=== PATIENT | male | born 1955 | race Caucasian/White ===

== ENCOUNTER → 2016-04-22 | Day surgery (SDC) | payer BC ==
[2016-04-21 10:07] VITALS: Ht 180.3 cm; Wt 115.9 kg
[~2016-04-22] VITALS: Ht 180.3 cm; Wt 115.9 kg
[~2016-04-22] MED LIST: ASPI325T45 PO; ATEN-173 PO; ATROPINE SULFATE 0.1 MG/ML 5ML SYR IV PRN; BUPIVACAINE 0.5 % 5 MG/1 ML MPF 30ML VIAL ONE; BUPIVACAINE/EPINEPHRINE 0.5% MPF 1:200,000 30 ML VIAL ONE; CEFAZOLIN 2000 MG/60 ML D5W IV SCH; CEFAZOLIN SOD 1 GM VIAL IV ONE; CEFAZOLIN SOD 1 GM VIAL ONE; CIME-56 PO; DEXAMETHASONE SOD INJ 4 MG/ML VIAL ONE; DUTA0.5C PO; EZET10TA63 PO; EpHEDrine SULFATE 50MG/5ML SYR ONE; EpHEDrine SULFATE INJ 50 MG/ML AMP IV PRN; FENTANYL CITRATE INJ 50 MCG/1 ML 2 ML VIAL IV PRN; FENTANYL CITRATE INJ 50 MCG/1 ML 2 ML VIAL ONE; FLUMAZENIL 0.1 MG/1 ML 10 ML VIAL IV PRN; GLYCOPYRROLATE INJ 0.2 MG/ML VIAL ONE; HYDROmorphone INJ 2 MG/ML SYR/VIAL IV PRN; KETO10TA PO; KETOROLAC TROMETHAMINE 30 MG/ML VIAL ONE; LABETALOL HCL IV 5 MG/ML 20ML IV PRN; LACTATED RINGER'S 1000ML 1,000 ML IV SCH; LIDOCAINE HCL 2% 2 ML VIAL (20MG/ML) ONE; LISI20TA3 PO; MEPERIDINE HCL 25 MG/ML CARP IV PRN; MIDAZOLAM HCL 1 MG/ML 2ML VIAL ONE; NALOXONE HCL 0.4 MG/1 ML VIAL/CARP IV PRN; OMEG10007 PO; ONDANSETRON INJ 2 MG/ML 2 ML VIAL IV PRN; ONDANSETRON INJ 2 MG/ML 2 ML VIAL ONE; OXYC-57 PO; OXYCODONE/ACETAMINOPHEN 5-325 TAB PO PRN; PHENYLEPHRINE 100MCG/ML 5ML SYR IV PRN; PROPOFOL IV EMULSION 10 MG/ML 20 ML VIAL IV ONE; SERT-234 PO; SODIUM CHLORIDE 0.9% 1000ML 1,000 ML IV SCH; VNTHFA/IN INH
--- NOTE | 2016-04-22 07:00 | History & Physical Bridge - SC ---
H&P Re-Evaluation Bridge Note: I have examined the patient, reviewed the History & Physical and in the interval since the performance of the History & Physical I have noted the following changes of clinical significance: No changes noted
--- NOTE | 2016-04-22 08:22 | Discharge Instructions-SurgCtr ---
Discharge Instructions Visit Reason for Visit: Right Localized Primary Osteoarthritis Ankle/Foot Discharge Discharge Diagnosis / Problem: RIGHT GREAT TOE DJD Discharge Goals Goal(s): Decrease discomfort, Therapeutic intervention Medications Stopped Medications Name(s): Was told not to take his Lisinopril and ASA. Restart Stopped Medication(s): RESTART HOME MEDICATIONS Activity Recommendations Activity Limitations: per Instructions/Follow-up section Weightbearing Status: Right weightbearing (as tolerated) Anesthesia . Post Anesthesia Instructions: If you have had General Anesthesia or IV Sedation: * Do not drive today. * Resume driving when surgeon permits. * Do not make important decisions or sign legal documents today. * Call surgeon for: 1. Temperature elevations greater than 101 degrees F. 2. Uncontrollable pain. 3. Excessive bleeding. 4. Persistent nausea and vomiting. 5. Medication intolerance (nausea, vomiting or rash). * For nausea and vomiting use only clear liquids such as: tea, soda, bouillon until nausea subsides, then gradually increase diet as tolerated. * If you have any concerns or questions, call your surgeon's office. If physician is unavailable and it is an emergency, call 911 or go to the nearest emergency room. . Instructions / Follow-Up Instructions / Follow-Up MEDICATIONS: * Resume previous medications unless instructed otherwise by your surgeon. * Always take pain medication on a full stomach or with food to avoid upset stomach. * Do not drink alcohol or drive while taking narcotics. * Ibuprofen or Tylenol may be taken if narcotic not needed. NO IBUPROFEN WHILE TAKING TORADOL SPECIAL CARE INSTRUCTIONS: __ None _X_ Keep extremity elevated and iced x 48 hours; apply ice 20-30 minutes 8-10 times/day. May remove at night. _X_ Crutches/WALKER _X_ May discard when able _X_ Post-op shoe __ 24 hrs/day __ Remove at night _X_ Dressing _X_ Maintain until seen in office, may shower with plastic over site __ Remove dressings in 24-48 hours and then may shower __ Cover incisions with band-aids after showering __ Do not remove steri-strips Call physician if chills or temperature rises above 102 degrees or pain unrelieved by prescribed pain medications. Office [phone] FOLLOW UP IN 2 WEEKS Diet Recommendations Home Diet: resume previous diet Procedures Procedures Performed: Right First Metatarsophalangeal Joint Chilectomy Pending Studies Studies pending at discharge: no Medical Emergencies . Who to Call and When: Medical Emergencies: If at any time you feel your situation is an emergency, please call 911 immediately. . Non-Emergent Contact Non-Emergency issues call your: Primary Care Provider, Surgeon . . "Provider Documentation" section prepared by Shane Nevarez.
--- NOTE | 2016-04-22 08:23 | [facility] Post Operative Brief Note ---
Immediate Operative Summary Operative Date Apr 22, 2016. Pre-Operative Diagnosis Right Great Toe MTP Joint DJD Post-Operative Diagnosis Same Procedure(s) Performed Right First Metatarsophalangeal Joint Chilectomy Surgeon Dr. Monsalve Software Developer Intern Surgeon(s) Donte Nevarez PA-C Estimated Blood Loss Minimal Findings DJD Great Toe Specimens None Drains None Anesthesia General Complication(s) None Disposition Recovery Room / PACU
--- NOTE | 2016-04-22 08:47 | OPERATIVE REPORT ---
DATE OF OPERATION: 04/22/2016 PREOPERATIVE DIAGNOSIS: Right first metatarsophalangeal joint degenerative joint disease. POSTOPERATIVE DIAGNOSES: Same. PROCEDURE PERFORMED: Right first MTP joint cheilectomy. SURGEON: Dr. Phani Monsalve. HOSPICE HOME HEALTH AIDE: Shane Nevarez PA-C. COMPLICATIONS: None. ESTIMATED BLOOD LOSS: Minimal. TOURNIQUET TIME: 33 minutes at 300 mmHg. ANESTHESIA: General. SPECIMENS: None. OPERATIVE INDICATIONS: The patient is a 60-year-old gentleman who has had a long history of right foot pain and discomfort. He has recently had his right knee replaced. During that recovery period he wanted to treat his right great toe. He has got known advanced arthritis. He has got a very significant requirement for standing and walking with his work and was having pain and foot limiting his activities and ability to do this. He elected to proceed with surgical treatment. OPERATIVE FINDINGS: Operative findings revealed advanced right knee DJD. The plantar aspect of his cartilage space really was pretty good. He had a large dorsal spur and spurs medially and laterally. We were able to resect the entire arthritic section of the dorsal joint. OPERATIVE PROCEDURE: The patient taken to the operating room, identified and placed on the operating table in supine position. All contact areas were appropriately padded. IV antibiotics were provided by anesthesia team. A general anesthetic was implemented. A right thigh tourniquet was then placed. The right ankle was then cleaned with alcohol. Twenty mL of 0.5% Marcaine with epinephrine were then injected into the ankle area for an ankle block anesthetic. The right foot was then prepped and draped in the usual sterile fashion. The right leg was elevated and exsanguinated with Esmarch and tourniquet was placed at 300 mmHg. An anterior medial approach of the first MTP joint was then performed through a longitudinal incision just medial to the extensor tendon. Blunt dissection was carried through the subcutaneous tissues down to the joint capsule. The joint capsule was incised about 2-3 mm medially to the EHL tendon. It was taken directly down through bone and skeletonized off the proximal MTP joint. I exposed the entire joint. Synovectomy was performed. I then used a saw to resect the large dorsal osteophyte. We began right at the cartilage bone junction and removed this. I then removed the medial osteophyte as well as lateral osteophyte off the metatarsal head with use of a saw. I then rongeured the squared edges to make them smooth. I then used a rongeur to remove the osteophytes off the base of the proximal phalanx circumferentially both dorsally, medially, and laterally. Once this was complete, I could dorsiflex the toe to 90 degrees. Attention was then drawn toward closing. The wound was irrigated with copious amounts of normal saline. I injected locally with 20 mL of additional 0.5% Marcaine with epinephrine. I used some bone wax over the cancellous bone to limit bleeding. The capsule was then closed with 3-0 Vicryl suture in a [id number] fashion. The tourniquet was then let down for a tourniquet time of 33 minutes. Hemostasis was assured with use of electrocautery. The wound was once again irrigated. Subcutaneous tissues were then closed with 3-0 Vicryl suture in a buried interrupted fashion. Skin was closed with 4-0 nylon suture in a horizontal mattress fashion. The foot was then cleaned and dried and a sterile dressing composed of Xeroform, 4 x 4's, Kai wrap, sterile cast padding, Coban wrap, and postop shoe were applied. The patient then brought out of general anesthesia and transferred to the recovery room in stable condition. The patient tolerated procedure well with no complications. All needle and sponge counts were correct at the end of the operation. I attest to the content of the Intraoperative Record and any orders documented therein. Any exceptio ns are noted below.
--- NOTE | 2016-04-22 08:50 | Anesthesia Progress Nt - [facility] ---
Anesthesia Post Op Note Date & Time Apr 22, 2016 at 08:50 Vital Signs Pain Intensity: 0 Vital Signs Past 12 Hours Date Time Temp Pulse Resp B/P Pulse Ox O2 Delivery O2 Flow Rate FiO2 04/22/16 08:19 37.2 79 16 138/78 98 Diffusion Mask 8 04/22/16 06:30 36.7 68 16 152/96 96 Room Air Notes Mental Status: alert / awake / arousable, participated in evaluation Pt Amnestic to Procedure: Yes Nausea / Vomiting: adequately controlled Pain: adequately controlled Airway Patency, RR, SpO2: stable & adequate BP & HR: stable & adequate Hydration State: stable & adequate Anesthetic Complications: no major complications apparent
[2016-04-22 09:38] VITALS: BP 134/78; PULSE 59; O2SAT 95
== END | disposition home or self-care (01) ==
LOC: X.SURG 06:06
PROVIDERS: ATTEND Orthopaedic Surgery Sports Medicine
DX: M19.071 Primary osteoarthritis, right ankle and foot (principal); J45.909 Unspecified asthma, uncomplicated; I10 Essential (primary) hypertension; Z96.659 Presence of unspecified artificial knee joint; F17.220 Nicotine dependence, chewing tobacco, uncomplicated

== ENCOUNTER → 2016-09-22 | Outpatient (CLI) | payer BC ==
[~2016-09-22] MED LIST changes: -ATROPINE SULFATE 0.1 MG/ML 5ML SYR IV PRN; -BUPIVACAINE 0.5 % 5 MG/1 ML MPF 30ML VIAL ONE; -BUPIVACAINE/EPINEPHRINE 0.5% MPF 1:200,000 30 ML VIAL ONE; -CEFAZOLIN 2000 MG/60 ML D5W IV SCH; -CEFAZOLIN SOD 1 GM VIAL IV ONE; -CEFAZOLIN SOD 1 GM VIAL ONE; -DEXAMETHASONE SOD INJ 4 MG/ML VIAL ONE; -EpHEDrine SULFATE 50MG/5ML SYR ONE; -EpHEDrine SULFATE INJ 50 MG/ML AMP IV PRN; -FENTANYL CITRATE INJ 50 MCG/1 ML 2 ML VIAL IV PRN; -FENTANYL CITRATE INJ 50 MCG/1 ML 2 ML VIAL ONE; -FLUMAZENIL 0.1 MG/1 ML 10 ML VIAL IV PRN; -GLYCOPYRROLATE INJ 0.2 MG/ML VIAL ONE; -HYDROmorphone INJ 2 MG/ML SYR/VIAL IV PRN; -KETO10TA PO; -KETOROLAC TROMETHAMINE 30 MG/ML VIAL ONE; -LABETALOL HCL IV 5 MG/ML 20ML IV PRN; -LACTATED RINGER'S 1000ML 1,000 ML IV SCH; -LIDOCAINE HCL 2% 2 ML VIAL (20MG/ML) ONE; -MEPERIDINE HCL 25 MG/ML CARP IV PRN; -MIDAZOLAM HCL 1 MG/ML 2ML VIAL ONE; -NALOXONE HCL 0.4 MG/1 ML VIAL/CARP IV PRN; -ONDANSETRON INJ 2 MG/ML 2 ML VIAL IV PRN; -ONDANSETRON INJ 2 MG/ML 2 ML VIAL ONE; -OXYCODONE/ACETAMINOPHEN 5-325 TAB PO PRN; -PHENYLEPHRINE 100MCG/ML 5ML SYR IV PRN; -PROPOFOL IV EMULSION 10 MG/ML 20 ML VIAL IV ONE; -SODIUM CHLORIDE 0.9% 1000ML 1,000 ML IV SCH
[2016-09-22 18:53] LABS: HEMATOCRIT 44.3 % (42-52); MEAN CORPUSCULAR HEMOGLOBIN 30.7 pg (25-34); MEAN CORPUSCULAR HGB CONC 34.5 g/dl (32-36); MEAN PLATELET VOLUME 10.2 fL (7.4-10.4); PLATELET COUNT 234 K/uL (130-400); RED BLOOD COUNT 4.98 M/uL (4.7-6.1); WHITE BLOOD COUNT 10.71 K/uL (4.8-10.8)
[2016-09-22 19:26] LABS: ALT/SGPT 32 U/L (12-78); AST/SGOT 18 U/L (15-37); BLOOD UREA NITROGEN 21 mg/dl (7-18); BUN/CREATININE RATIO 16.4 (10-20); CALCIUM 8.8 mg/dl (8.5-10.1); CARBON DIOXIDE 27 mmol/L (21-32); CHLORIDE 107 mmol/L (98-107); GLUCOSE 91 mg/dl (70-99); POTASSIUM 4.5 mmol/L (3.5-5.1); SODIUM 141 mmol/L (136-145)
[2016-09-22 19:31] LABS: ALB/GLOB RATIO 1.3 (0.9-2); ALKALINE PHOSPHATASE 74 U/L (45-117); FREE PSA 1.06 ng/ml
--- NOTE | 2016-09-28 13:39 | CODING QUERY MEDICAL NECESSITY ---
SUPPORTING DIAGNOSIS NEEDED Dr. Chapman, A supporting diagnosis is required for the test/procedure performed on this patient in order for us to be reimbursed by the patient's insurance. Please provide a supporting diagnosis for the following test/procedure listed below next to the test name along with your signature. *If there is no additional diagnosis for this patient that would support the following test/procedure please document that below next to the test/procedure. Test(s)/Procedure(s) that require a supporting diagnosis: * [id number] PSA DIAGNOSIS: DATE OF SERVICE: 09/22/16 Provider Signature: Date: Thank you Esteban Nath [facility] Information Management Once completed, please kindly fax back to [phone] For questions please call [phone]
== END | disposition home or self-care (01) ==
LOC: C.LAB 17:05
PROVIDERS: ATTEND Urology
DX: E29.1 Testicular hypofunction (principal); R97.20 Elevated prostate specific antigen [PSA]

== ENCOUNTER → 2017-01-14 | Outpatient (CLI) | payer BC ==
[~2017-01-14] MED LIST changes: -OXYC-57 PO
== END | disposition home or self-care (01) ==
LOC: C.LAB 15:20
PROVIDERS: ATTEND Urology
DX: R97.20 Elevated prostate specific antigen [PSA] (principal)

== ENCOUNTER → 2017-01-22 | Outpatient (CLI) | payer BC ==
[~2017-01-22] MED LIST changes: +GADAVIST IV PRN
--- NOTE | 2017-01-22 14:27 | DIAGNOSTIC IMAGING REPORT ---
PROSTATE MRI COMBO CLINICAL HISTORY: 61 years-old Male presenting with ELEVATED PSA. PSA 4.4 ng/mL. Biopsy was negative. TECHNIQUE: Multisequence, multiplanar MR imaging of the prostate was performed before and after the administration of intravenous contrast. Additional postprocessing was performed on a separate [employer] workstation by the radiologist for 3-D volumetric segmentation of the prostate and contouring of region(s) of interest (JACE) for targeting. IV contrast: 12.5 cc of intravenous Gadavist COMPARISON: None. FINDINGS: Prostate: The prostate measures 6.0 x 5.5 x 6.0 cm cm (DynaCAD prostate boundary segmentation volume 90.1 mL). Moderate changes of benign prostatic hyperplasia. Precontrast T1 weighted imaging demonstrates no evidence of intrinsic T1 hyperintensity to suggest hemorrhage. Seminal vesicles normal. No suspicious lesion is apparent in the transition or peripheral zones. PI-RADS: 2 Bladder: Mild bladder wall thickening Bowel: Visualized portion of the rectum normal. Peritoneum: No free fluid in the pelvis. Lymph nodes: There is a mildly enlarged right common femoral lymph node measuring 20 x 12 mm. There is a left common femoral lymph node measuring 14 x 6 mm. Vasculature: Iliac vessels patent. Osseous structures: Normal bone marrow signal intensity. There is a fat-containing left inguinal hernia. IMPRESSION: 1. Benign prostatic hypertrophy. PI-RADS 2 study. No suspicious lesion is visualized. 2. Fat-containing left inguinal hernia 3. Mildly enlarged right common femoral lymph node measuring 20 x 12 mm 4. Prostate volume of 90.1 cc Electronically signed by: Maury Lucas M.D. 01/22/2017 2:26 PM Dictated Date/Time: 01/22/2017 2:08 PM
== END | disposition home or self-care (01) ==
LOC: C.MRIBC 12:28
PROVIDERS: ATTEND Urology
DX: R97.20 Elevated prostate specific antigen [PSA] (principal); N40.0 Benign prostatic hyperplasia without lower urinary tract symptoms; K40.90 Unilateral inguinal hernia, without obstruction or gangrene, not specified as recurrent; R59.0 Localized enlarged lymph nodes

== ENCOUNTER 2017-05-24 07:56 | Emergency (ER) | payer BC ==
[~2017-05-24] VITALS: Ht 180.3 cm; Wt 122.9 kg
[~2017-05-24 07:56] MED LIST changes: -GADAVIST IV PRN
[2017-05-24 08:00] VITALS: TEMP 37.1; Ht 180.3 cm; Wt 122.9 kg
[2017-05-24] MEDS ORDERED: VALA1TAB2 PO (09:02)
[2017-05-24] MEDS ORDERED: HYDR-5688 PO (09:03)
--- NOTE | 2017-05-24 09:04 | EMERGENCY ROOM VISIT NOTE ---
ED Visit Note First contact with patient: 08:16 CHIEF COMPLAINT: Right forehead rash 4 days HISTORY OF PRESENT ILLNESS: Patient is a 61-year-old female who presents emergency department for evaluation of a rash on his forehead. His symptoms started about 4 days ago, with a red, raised spot, he thought it might have been a "blind pimple." He has progressively developed more redness, swelling and several smaller raised lesions. This morning, he noted swelling in his right upper eyelid and lesions in his eyebrow. He also has some lesions into his right hairline. It is primarily painful, slightly itchy. He denies any eye pain, has had some tearing. He has been able to wear his contacts, and notes only slightly blurry vision. He notes some swollen lymph nodes around his right ear. He denies any fever, chills, malaise, posterior neck pain or stiffness. He does report having chickenpox illness as a child, has not received the shingles vaccine. He has an appointment for a physical with his primary care provider this afternoon. He sees an wardrobe manager for his contact lenses. REVIEW OF SYSTEMS: Review of systems as per HPI. All other systems reviewed were negative. At least 6 systems reviewed. PMH: Electronic medical records are reviewed and summarized as above/below. See Problem List. He believes that his tetanus is up-to-date. SOCIAL HISTORY: Patient lives at home with his spouse. He is employed. Never smoked. PHYSICAL EXAM: Vital Signs: Reviewed Nurse's notes. CONSTITUTIONAL: Patient is a well-appearing 61-year-old white male who is awake and alert and in no acute distress. HEENT: Normocephalic, atraumatic. Pupils equal, round, reactive to light and accommodation. EOMs intact without nystagmus. There is no conjunctival injection or drainage or discharge noted from the eyes. Sclera are anicteric. Under slit-lamp examination, after patient removed his contact lens, there was no evidence for corneal foreign body, no fluorescein uptake with UV light. Tympanic membranes intact, with normal landmarks, no lesions noted. External canals are clear. Oral and nasopharynx are clear. Mucous membranes are moist. INTEGUMENTARY: The patient has a vesicular-appearing rash on an erythematous, edematous base noted on the right forehead above and inferior to the right eyebrow, with similar smaller scattered lesions noted into the scalp on the right. Some of the vesicles are crusted over, there is no drainage or discharge present. LYMPHATICS: Patient has tender left-sided preauricular lymphadenopathy noted. No erythema or induration. EMERGENCY DEPARTMENT COURSE: The patient was seen and evaluated as above. He does appear to have a rash consistent with shingles above the right eye. There does not appear to be any superimposed cellulitis. Differential diagnoses included allergic reaction, contact dermatitis, urticaria, among others. Slit- lamp examination was performed, and does not show any corneal involvement, which would be accurate considering this is not the appropriate dermatome. Patient was reviewed with attending physician. Patient was given valacyclovir 1 g orally. Supportive care measures were discussed. He was given [place] to use as needed for pain. He was encouraged to return to the emergency department at any point for worsening symptoms, he can also follow up with his wardrobe manager. The patient was discharged home with his in good condition. Medication reconciliation: I attest that I have personally reviewed the patient' s current medication list. Blood pressure screening: Patient was found to have a slightly elevated blood pressure due to circumstances. I do not believe that the patient requires hypertension monitoring. Problem List Medical Problems: (1) Asthma Status: Chronic (2) Depression Status: Chronic (3) Gastro-Esophageal Reflux Disease Without Esophagitis Status: Chronic (4) Hyperlipidemia Nec/Nos Status: Chronic (5) Hypertension Nos Status: Chronic Surgical Problems: (1) History of total knee arthroplasty Status: Resolved Current/Historical Medications Scheduled Aspirin (Aspirin), 325 MG PO BID Atenolol (Tenormin), 25 MG PO QAM Dutasteride (Avodart), 0.5 MG PO QAM Ezetimibe (Zetia), 10 MG PO HS Fish Oil (Sorrento-3), 1 CAP PO QAM Lisinopril (Prinivil), 20 MG PO QAM Sertraline (Zoloft), 100 MG PO HS Valacyclovir Hcl (Valtrex), 1,000 MG PO TID Scheduled PRN Albuterol Hfa (Ventolin Hfa), 2-4 PUFFS INH Q6H PRN for SOB/Wheezing Cimetidine (Tagamet), 400 MG PO DAILY PRN for STOMACH Hydrocodone/Acetaminophen 5MG/325MG ([place] 5MG/325MG), 1-2 TABLETS PO Q4 PRN for Pain Allergies Coded Allergies: BEE STING (Unverified Allergy, Unknown, ITCHING AND BODY SWELLING, 05/24/17 ) Uncoded Allergies: IV PAIN MEDICATION (Allergy, Unknown, "MADE ME WIG OUT", 04/21/16) Vital Signs Date Time Temp Pulse Resp B/P (MAP) Pulse Ox O2 Delivery O2 Flow Rate FiO2 05/24/17 09:16 61 20 124/96 96 05/24/17 08:00 37.1 65 18 166/91 96 Room Air Medications Administered Medications (Trade) Dose Ordered Sig/Deandra Route Start Time Stop Time Status Last Admin Dose Admin Valacyclovir HCl (Valtrex Tab) 1,000 mg NOW ONCE PO 05/24/17 09:00 05/24/17 09:01 DC 05/24/17 09:10 1,000 MG Departure Information Impression Primary Impression: Shingles Prescriptions Hydrocodone/Acetaminophen 5MG/325MG ([place] 5MG/325MG) Tab 1-2 TABLETS PO Q4 Y for Pain, #20 TAB For Initial Treatment Prov: Migdalia Luna PA 05/24/17 Valacyclovir Hcl (VALTREX) 1 Gm Tab 1000 MG PO TID for 7 Days, #21 TAB Prov: Migdalia Luna PA 05/24/17 Referrals Merry Jacobs PA-C (PCP) Patient Instructions My [facility] Additional Instructions Valacyclovir 1000 mg: Take one tablet 3 times daily for 7 days. Hydrocodone/Acetaminophen ([place]) 5/325 mg: Take 1-2 pills every four hours for breakthrough pain. Avoid alcohol, operating machinery or dangerous equipment, working on ladders or roofs, DRIVING, or situations where being under the influence may be dangerous. It is recommended to use an [id number] stool softener such as Colace, 100mg twice daily while taking this medication to avoid constipation. Follow-up with your primary care physician as you have scheduled this afternoon. Follow-up with your wardrobe manager if you develop any eye pain or changes in vision.
[2017-05-24 09:16] VITALS: BP 124/96; PULSE 61; O2SAT 96
== END 2017-05-24 09:24 | disposition home or self-care (01) ==
LOC: C.EDB 07:58
DX: B02.9 Zoster without complications (principal); J45.909 Unspecified asthma, uncomplicated; F32.9 Major depressive disorder, single episode, unspecified; K21.9 Gastro-esophageal reflux disease without esophagitis; E78.5 Hyperlipidemia, unspecified; I10 Essential (primary) hypertension; Z79.82 Long term (current) use of aspirin; Z79.899 Other long term (current) drug therapy; Z91.030 Bee allergy status; Z88.8 Allergy status to other drugs, medicaments and biological substances

== ENCOUNTER → 2017-08-06 | Outpatient (CLI) | payer BC ==
[~2017-08-06] MED LIST changes: +ASPECOTC PO; -ASPI325T45 PO; +HYDR-5688 PO
[2017-08-06 17:46] LABS: ALBUMIN 3.8 gm/dl (3.4-5.0); ALT/SGPT 29 U/L (12-78); AST/SGOT 20 U/L (15-37); BLOOD UREA NITROGEN 20 mg/dl (7-18); CALCIUM 8.7 mg/dl (8.5-10.1); CARBON DIOXIDE 28 mmol/L (21-32); CREATININE 1.11 mg/dl (0.60-1.40); GLUCOSE 93 mg/dl (70-99); POTASSIUM 4.7 mmol/L (3.5-5.1); SODIUM 138 mmol/L (136-145)
[2017-08-06 17:50] LABS: ALKALINE PHOSPHATASE 64 U/L (45-117)
== END | disposition home or self-care (01) ==
LOC: C.LAB 16:41
PROVIDERS: ATTEND Urology
DX: R31.0 Gross hematuria (principal)

== ENCOUNTER 2022-08-16 18:52 | Inpatient (IN) ==
[2022-08-16] MEDS ORDERED: HYDROmorphone INJ 1 MG/ML SYRINGE IM STA (19:05)
--- NOTE | 2022-08-16 19:09 | Emergency Department Note ---
ED Provider Note History of Present Illness Chief Complaint: Catheter Replacement Stated Complaint: CATHETER REPLACEMENT Time Seen by Provider: 08/16/22 18:59 67-year-old male who returns to the emergency department with complaint of increasing pain and pressure within his bladder. The patient reports that he was just discharged from our emergency department, and did not make it to [facility] before he noticed significant pain. The patient reports that he did have CT imaging showing a large blood clot in his bladder. He feels that the clot has blocked off his catheter again, and returns for further evaluation. The patient rates his discomfort an 8 out of 10. The patient reports that he was given IV morphine on his prior visit which did not help with his pain. Patient has known history of chronic prostate disease, and follows with [facility]. Home Medications Medication Instructions Recorded Confirmed Type amlodipine 10 mg tablet 10 mg PO QAM 01/17/21 08/16/22 History hydrochlorothiazide 25 mg tablet 25 mg PO QAM 01/17/21 08/16/22 History lisinopril 40 mg tablet 40 mg PO QAM 07/16/21 08/16/22 History duloxetine 30 mg capsule,delayed 30 mg PO DAILY 09/26/21 08/16/22 History release (Cymbalta) albuterol sulfate 90 mcg/actuation 2 inh inhalation Q4H PRN shortness 02/07/22 08/16/22 Rx aerosol inhaler (Ventolin HFA) of breath or wheezing #6.7 grams fluoxetine 20 mg capsule 20 mg PO DAILY 08/16/22 08/16/22 History Allergies Allergy/AdvReac Type Severity Reaction Status Date / Time bee venom protein (honey bee) Allergy Intermediate ITCHING Verified 08/16/22 16:32 AND BODY SWELLING Past Med/Surg History Medical History Anxiety Degenerative joint disease (DJD) of hip Hyperlipidemia Hypertension Pain due to total right knee replacement Shingles HX Surgical History History of needle biopsy PROSTATE History of shoulder surgery right History of tonsillectomy Family History Father Hypertension Other Heart disease Leukemia Social History Smoking Status: Current every day smoker Tobacco Type: Smokeless Tobacco (Dip or Chew) Second Hand Exposure: No; Do You Dip or Chew Tobacco: Yes (ADVISED); Hx Alcohol Use: Yes Hx Substance Use: No Preferred Language: Polish Communication Ability: Effective Physical Laboratory Assistant Required: No Beliefs That Will Affect Care: None marital status: Current Living Situation: Spouse current occupational status: employed current occupation: PEER SPECIALIST Feels Safe at Home: Yes Assistive Devices: Denture - Upper and Denture - Lower Physical Exam Vital Signs Vital Signs - 24 hr 08/16/22 18:56 08/16/22 21:16 Temperature 36.7 C Temperature Source Temporal Artery Scan Pulse Rate 125 H Pulse Rate [Finger] 86 Pulse Rhythm Regular Pulse Rhythm [Finger] Regular Pulse Strength Normal Respiratory Rate 20 19 Respiratory Effort / Characteristics Non-Labored Spontaneous Non-Labored Spontaneous Respiratory Depth Normal Normal Respiratory Pattern Regular Regular Blood Pressure 156/97 H Blood Pressure [Right Arm] 119/67 Blood Pressure Mean 116 Blood Pressure Mean [Right Arm] 84 Blood Pressure Position Sitting Blood Pressure Position [Right Arm] Lying Pulse Oximetry 96 94 Oxygen Delivery Method Room Air Room Air Sepsis Recent Fever Within 48 Hours No Sepsis New/Unexplained Change in Mental Status N/A Sepsis Action Taken by Nursing No Action Required CONSTITUTIONAL: Healthy and well nourished. Patient appears in moderate discomfort. HEENT: No scleral icterus or conjunctival injection/pallor. GASTROINTESTINAL: Patient has mild tenderness to palpation over the suprapubic region. Negative McBurney's point tenderness. Negative CVA tenderness. The patient's Olivares bag only has blood without evidence for urine. MUSCULOSKELETAL: Full range of motion of all joints without discomfort. Negative logroll of the hips. INTEGUMENTARY: No rash or other significant dermatologic conditions noted. HEMATOLOGIC: No ecchymosis or petechiae. PSYCHIATRIC: Positive affect. NEUROLOGIC: No focal neurologic deficits noted. Course Course Patient history and physical exam were performed. Nurses notes were reviewed. Vital signs were reviewed, showing a mild tachycardia and hypertension. I also reviewed documentation from the patient's visit this afternoon, with CT imaging showing evidence for a large clot within the bladder. An order was placed for a Olivares irrigation. The nurse reports that she tried to irrigate, but could not get anything back. She did recommend replacing it with a triple-lumen Olivares catheter, which was performed. Continuous bladder irrigation was performed with large amounts of blood clots and persistent bleeding. The patient did report improvement of his pain, but his did not feel comfortable taking him home with risk of persistent clot formation. At this point, I did discuss the case further with our Bogger Operator who do not have any specific criteria for observation with his condition. They recommended that I discussed the case further with the [facility] hospitalist (Dr. Chu), and he agreed to bring the patient in for observation. COVID-19 test was negative. Please see hospitalist dictations for further treatment and final disposition. I suspect that a urology consultation will be warranted while he is still in the hospital. Administered Medications Discontinued Medications Hydromorphone HCl (Hydromorphone Inj 1 Mg/Ml Syringe) 0.5 mg IM NOW STA Stop: 08/16/22 19:06 Last Admin: 08/16/22 19:18 Dose: 0.5 mg Documented By: KAJAL Medical Decision Making Medical Records Attestation: I reviewed the patient's medical records. Home Medications was personally reviewed by me Laboratory Data Lab Results 08/16/22 Range/Units 21:23 POC Hgb 12.9 L (14.0-18.0) g/dl POC Hct 38 L (42-52) % POC Sodium 127 L (135-144) mmol/L POC Potassium 2.9 L (3.3-5.0) mmol/L POC Chloride 89 L (101-112) mmol/L POC Total CO2 29 (24-31) mmol/L POC Anion Gap 13.0 L (16-25) mmol/L POC BUN 17 (7-18) mg/dl POC Creatinine 1.8 H (0.6-1.3) mg/dl POC Glucose (other) 112 H (70-99) mg/dl POC Ioniz Calcium Yulissa 0.96 L (1.12-1.32) mmol/l MDM Narrative Patient presents the emergency department with complaint of increasing bladder pain and pressure. The patient was just seen in the emergency department this afternoon, and had a Olivares catheter placed with urinary retention. CT imaging earlier today also showed evidence for a large clot within the bladder. I suspect that the blood has blocked the Olivares catheter, therefore Olivares irrigation was attempted, however was unsuccessful. The Olivares had to be removed, and a triple-lumen Olivares catheter was inserted with continuous bladder irrigation with huge blood clots and persistent bleeding. At this point, the case was further discussed with the hospitalist service, who has agreed to bring the patient in for observation and urology consultation. Impression Complication, blocked Olivares catheter, Hematuria Discharge Plan Visit Data Chief Complaint: Catheter Replacement Stated Complaint: CATHETER REPLACEMENT ED Provider: Nick Garner ED Midlevel Provider: Yaakov Granados Discharge Problem: Complication, blocked Olivares catheter, Hematuria Patient Disposition: Home - Self-Care Discharge Instructions Activity Restrictions/Additional Instructions: Continue follow-up with [facility] for further evaluation and management. Return to the emergency department for any recurrent blockage of your Olivares catheter. Forms Stand Alone Forms: [facility], [facility] Emergency Department, Important Visit Information Prescriptions Prescriptions: No Action duloxetine [Cymbalta] 30 mg capsule,delayed release(DR/EC) 30 mg PO DAILY Rx Instructions: 30 mg PO DAILY INCREASE TO BID; hydrochlorothiazide 25 mg tablet 25 mg PO QAM amlodipine 10 mg tablet 10 mg PO QAM albuterol sulfate [Ventolin HFA] 90 mcg/actuation HFA aerosol inhaler 2 inh inhalation Q4H PRN (Reason: shortness of breath or wheezing) Qty: 6.7 1RF Rx Instructions: 2 puffs every 4-6 hrs as needed for wheezing lisinopril 40 mg Tablet 40 mg PO QAM fluoxetine 20 mg capsule 20 mg PO DAILY Referrals Referrals: Henrique Sommer MD [Primary Care Provider] - Complication, blocked Olivares catheter Qualifiers: Encounter type: initial encounter Qualified Code(s): T83.091A - Other mechanical complication of indwelling urethral catheter, initial encounter Hematuria Qualifiers: Hematuria type: gross Qualified Code(s): R31.0 - Gross hematuria
[2022-08-16 21:38] LABS: iSTAT Creatinine 1.8 mg/dl (0.6-1.3); iSTAT Hemoglobin 12.9 g/dl (14.0-18.0); iSTAT Ionized Calcium 0.96 mmol/l (1.12-1.32); iSTAT Potassium 2.9 mmol/L (3.3-5.0)
[2022-08-16] MEDS ORDERED: PROMETHAZINE HCL 12.5 MG in SODIUM CHLORIDE 0.9% 50 ML IV PRN (22:02)
[2022-08-16] MEDS ORDERED: ACETAMINOPHEN 325 MG TAB PO PRN (22:02)
[2022-08-16] MEDS ORDERED: SODIUM CHLORIDE 0.9% 1000ML 1,000 ML IV ONE (23:09)
[2022-08-17 01:12] LABS: Hematocrit (blood only) 37.9 % (42.0-52.0); Hemoglobin 12.9 g/dl (14.0-18.0)
[2022-08-17 01:26] LABS: BUN Creatinine Ratio 20.9 (10-20); Calcium 8.5 mg/dl (8.6-10.3); Creatinine Clr Calc Pharmacy 102.6 ml/min; Est GFR (African American) 102.1 ml/min; Est GFR (Non-African American) 88.1 ml/min; Magnesium 1.8 mg/dl (1.7-2.4); Potassium 4.3 mmol/L (3.5-5.1)
[2022-08-17] MEDS: oxyCODONE HCL IR 5 MG TAB (IMMEDIATE RELEASE) PO PRN ×3 (03:26→19:55)
--- NOTE | 2022-08-17 05:19 | History & Physical Report ---
Date of Service August 16, 2022 (late entry) Assessment & Plan (1) Hematuria: Plan: With urinary retention symptoms history BPH Hemoglobin drop from baseline following initial ER visit this afternoon. hypertension, stable hyperlipidemia/statin intolerance prediabetes, hemoglobin A1c of 5.17 January 2022 mood disorder, at baseline OBS Medical telemetry follow H&H, transfuse PRBC if hemoglobin less than 7 and for symptomatic anemia Continue CBI Flomax for urinary retention given prostatic enlargement Urology consult Re: Hematuria N.p.o. until patient seen by urology in anticipation of procedure DVT prophylaxis. SCDs Re: Hematuria causing anemia Full code Text document was generated using [employer] voice recognition software. It may contain grammatical or spelling errors. Kindly contact undersigned for clarification of any documentation item in question. Admission and Anticipated Discharge Date Admission Date: August 16, 2022 History of Present Illness Chief Complaint: Increasing bladder pain Primary Care Provider: Henrique Sommer MD History obtained from patient, family, and records. Medical history significant for hypertension, hyperlipidemia/statin intolerance, prediabetes, mood disorder, BPH, OA. 2 weeks history of achy lower abdominal pain with hematuria. No fever, no chills, no chest pain, no SOB. Urinary retention later noted. Patient consulted ER this afternoon for progressive symptoms. Hemoglobin and kidney function stable. CT abdomen pelvis did not show any urinary calculi or hydronephrosis. Note of 9 x 4.8 cm bladder clot with bladder distention. Olivares catheter placed at the ER. Patient discharged home with instructions to follow-up with urologist. Worsening bladder pressure shortly after discharge from the ER. Patient returned to the ER. Olivares catheter replaced and continuous bladder irrigation initiated. Patient currently comfortable. Medical History as above Surgical History : Shoulder surgery, urologic procedures, tonsillectomy, cataract surgeries Family History : Heart disease, DM Personal/Social history : Non-smoker, occasional EtOH intake, retired [employer] employee Allergies Allergy/AdvReac Type Severity Reaction Status Date / Time bee venom protein (honey bee) Allergy Intermediate ITCHING Verified 08/16/22 16:32 AND BODY SWELLING Home Medications Medication Instructions Recorded Confirmed Type amlodipine 10 mg tablet 10 mg PO QAM 01/17/21 08/16/22 History hydrochlorothiazide 25 mg tablet 25 mg PO QAM 01/17/21 08/16/22 History lisinopril 40 mg tablet 40 mg PO QAM 07/16/21 08/16/22 History duloxetine 30 mg capsule,delayed 30 mg PO DAILY 09/26/21 08/16/22 History release (Cymbalta) albuterol sulfate 90 mcg/actuation 2 inh inhalation Q4H PRN shortness 02/07/22 08/16/22 Rx aerosol inhaler (Ventolin HFA) of breath or wheezing #6.7 grams fluoxetine 20 mg capsule 20 mg PO DAILY 08/16/22 08/16/22 History Past Med/Surg History Medical History Anxiety Degenerative joint disease (DJD) of hip Hyperlipidemia Hypertension Pain due to total right knee replacement Shingles HX Surgical History History of needle biopsy PROSTATE History of shoulder surgery right History of tonsillectomy Family History Father Hypertension Other Heart disease Leukemia Social History Smoking Status: Never smoker Tobacco Type: Smokeless Tobacco (Dip or Chew) Second Hand Exposure: No; Do You Dip or Chew Tobacco: Yes (ADVISED); Hx Alcohol Use: No Hx Substance Use: No Preferred Language: [place]guill[place] Communication Ability: Effective Primer Boxer Required: No Beliefs That Will Affect Care: None marital status: Current Living Situation: Spouse Current Living Situation Comment: home w spouse current occupational status: employed current occupation: CUSTOMER SERVICE ADVISOR Other Information That Helps Us Care for You: No Feels Safe at Home: Yes Safety Concerns: Feels Safe At This Time Assistive Devices: Denture - Upper and Denture - Lower Review of Systems Review of Systems: As per HPI, all other systems reviewed and negative Physical Exam Physical Exam: GENERAL: Comfortable, pleasant, obese, no respiratory distress SKIN: Pallor, warm HEENT: Pale palpebral conjunctivae, no ptosis, dry buccal mucosa NECK : Supple, short neck, no tenderness CHEST : CTA, no tenderness HEART : RRR, no obvious murmurs ABDOMEN: Some distention, nontender EXTREMITIES : Minimal LE swelling, no LE tenderness, no other conspicuous deformities noted NEUROLOGIC : Coherent, no facial asymmetry, no other gross focality Results & Data Results & Data Vital Signs (Past 12 Hours) Vital Signs Temp Pulse Pulse Resp BP BP Pulse Ox 08/17/22 03:01 87 08/17/22 01:49 36.9 C 84 18 153/83 H 94 08/17/22 01:15 75 19 125/77 92 08/16/22 21:16 86 19 119/67 94 08/16/22 18:56 36.7 C 125 H 20 156/97 H 96 O2 Del Method 08/17/22 03:01 08/17/22 01:49 Room Air 08/17/22 01:15 Room Air 08/16/22 21:16 Room Air 08/16/22 18:56 Room Air Laboratory Results Laboratory Results Hgb 12.9 g/dl (14.0-18.0) L 08/17/22 00:54 POC Hgb 12.9 g/dl (14.0-18.0) L 08/16/22 21:23 Hct 37.9 % (42.0-52.0) L 08/17/22 00:54 POC Hct 38 % (42-52) L 08/16/22 21:23 POC Sodium 127 mmol/L (135-144) L 08/16/22 21:23 Sodium 135 mmol/L (136-145) L 08/17/22 00:54 POC Potassium 2.9 mmol/L (3.3-5.0) L 08/16/22 21:23 Potassium 4.3 mmol/L (3.5-5.1) 08/17/22 00:54 POC Chloride 89 mmol/L (101-112) L 08/16/22 21: Chloride 100 mmol/L (98-107) 08/17/22 00:54 Carbon Dioxide 28 mmol/L (21-32) 08/17/22 00:54 POC Total CO2 29 mmol/L (24-31) 08/16/22 21:23 Anion Gap 7 (3-11) 08/17/22 00:54 POC Anion Gap 13.0 mmol/L (16-25) L 08/16/22 21:23 POC BUN 17 mg/dl (7-18) 08/16/22 21:23 BUN 19 mg/dl (6-23) 08/17/22 00:54 Creatinine 0.91 mg/dl (0.6-1.4) 08/17/22 00:54 POC Creatinine 1.8 mg/dl (0.6-1.3) H 08/16/22 21:23 Est Cr Clr Drug Dosing 102.6 ml/min 08/17/22 00:54 Est GFR ( Amer) 102.1 ml/min 08/17/22 00:54 Est GFR (Non-Af Amer) 88.1 ml/min 08/17/22 00:54 BUN/Creatinine Ratio 20.9 (10-20) H 08/17/22 00:54 Glucose 117 mg/dl (70-99(Fasting)) H 08/17/22 00:54 POC Glucose (other) 112 mg/dl (70-99) H 08/16/22 21:23 Osmolality 290 mOsm/kg (280-300) 08/17/22 00:54 Calcium 8.5 mg/dl (8.6-10.3) L 08/17/22 00:54 POC Ioniz Calcium Yulissa 0.96 mmol/l (1.12-1.32) L 08/16/22 21:23 Magnesium 1.8 mg/dl (1.7-2.4) 08/17/22 00:54 SARS-CoV-2, RNA, NAAT NEGATIVE (NEGATIVE) 08/16/22 22:35 Diagnostic Findings Chest x-ray as per my interpretation : atelectasis, elevated right hemidiaphragm Code Status & VTE Plan VTE Prophylaxis Plan VTE Prophylaxis will be ordered: Yes (1) Hematuria Hematuria type: unspecified type Qualified Code(s): R31.9 - Hematuria, unspecified
[2022-08-17] MEDS: TAMSULOSIN HCL 0.4 MG CAP PO SCH (06:35)
[2022-08-17 07:01] LABS: Basophils # (auto) 0.03 K/uL (0-0.2); Basophils % (auto) 0.3 %; Eosinophils # (auto) 0.17 K/uL (0-0.50); Eosinophils % (auto) 1.6 %; Hematocrit (blood only) 37.2 % (42.0-52.0); Hemoglobin 12.8 g/dl (14.0-18.0); Immature Granulocytes # (auto) 0.08 K/uL (0.01-0.20); Immature Granulocytes % (auto) 0.8 %; Lymphocytes # (auto) 1.94 K/uL (1.2-3.4); Lymphocytes % (auto) 18.5 %; Mean Corpuscular Hemoglobin 29.5 pg (25.0-34.0); Mean Corpuscular Hgb Conc 34.4 g/dL (32.0-36.0); Mean Corpuscular Volume 85.7 fL (80.0-100.0); Mean Platelet Volume 9.6 fL (9.4-12.4); Monocytes # (auto) 1.16 K/uL (0.11-0.59); Monocytes % (auto) 11.1 %; Neutrophils # (auto) 7.11 K/uL (1.40-6.50); Neutrophils % (auto) 67.7 %; Platelet Count 323 K/uL (130-400); RDW Coefficient of Variation 13.7 % (11.5-14.5); RDW Standard Deviation 42.7 fL (36.4-46.3); Red Blood Count 4.34 M/uL (4.70-6.10); White Blood Count 10.49 K/ul (4.8-10.8)
[2022-08-17 07:19] LABS: Anion Gap 5 (3-11); BUN Creatinine Ratio 22.4 (10-20); Blood Urea Nitrogen 19 mg/dl (6-23); Calcium 8.4 mg/dl (8.6-10.3); Carbon Dioxide 31 mmol/L (21-32); Chloride 100 mmol/L (98-107); Creatinine Clr Calc Pharmacy 110.5 ml/min; Est GFR (Non-African American) 91.4 ml/min; Glucose 104 mg/dl (70-99(Fasting)); Sodium 136 mmol/L (136-145)
--- NOTE | 2022-08-17 07:29 | XRay Report ---
XR chest 1V portable CLINICAL HISTORY: hyponatremia TECHNIQUE: Single frontal radiograph of the chest was obtained. Comparison: Comparison is made to chest radiograph 02/07/2022 FINDINGS: No lines and tubes are seen. The cardiomediastinal silhouette is normal. Likely calcified granuloma i s seen in the right lower lung. No evidence of pleural effusion or pneumothorax. IMPRESSION: No acute chest disease. ACT 112: Negative or not required by law. Electronically signed by: Cornelius Spear M.D. 08/17/2022 7:27 AM
[2022-08-17] MEDS: FLUoxetine HCL 20 MG CAP PO SCH (07:52)
[2022-08-17] MEDS: amLODIPine BESYLATE 5 MG TAB PO SCH (07:52)
[2022-08-17] MEDS: DULoxetine HCL 30 MG CAP PO SCH (07:52)
--- NOTE | 2022-08-17 08:55 | Urology Consultation ---
Date of Consultation August 17, 2022 Assessment & Plan (1) Hematuria: (2) Complication, blocked Olivares catheter: 67-year-old male with PMHx of BPH with lower urinary tract symptoms, elevated PSA, and hematuria who presented to the emergency department on 08/16/2022 for evaluation of hematuria, lower abdominal pain and difficulty voiding. CT abdomen and pelvis without contrast notable for a 9 x 4.8 cm clot within the bladder, mild bladder distention; no urinary calculi or hydronephrosis. Olivares catheter was placed and he was discharged to follow-up with urology outpatient. Unfortunately he returned to ED again on 08/16/22 due to blocked Olivares catheter. - Pt afebrile, hemodynamically stable. - Labs reviewed - creatinine 0.85, WBC 10.49, Hgb 12.8 - UA on arrival showed 3+ blood, >30 RBCs, otherwise negative - no culture pending - CT A/P on 08/16 notable for a 9 x 4.8 cm clot within the bladder and mild bladder distention - 24F Olivares catheter draining appropriately at time of exam, urine is thin/transparent light aguilar red with CBI on slow - Personally hand irrigated catheter at bedside this am with return of moderate amount of small clots - Maintain Olivares catheter and CBI, with plan to titrate CBI down as appropriate - Okay to hand irrigate as needed for clot retention, suprapubic pain - Recommend start antibiotic while on CBI - IV Ceftriaxone ordered Findings reviewed with Dr. Herrera, plant operator control room operator urologist. Given persistent hematuria and concern for persistent clot burden, recommend proceed to OR for cystoscopy, clot evacuation and possible fulguration. Patient and spouse agreeable to proceed with surgical intervention. Plan: - Proceed with cystoscopy, clot evacuation and possible fulguration in OR today - OR notified - Keep NPO for procedure - Risks and benefits reviewed as per consent - Patient and are agreeable to the plan, all questions answered - Continue supportive care and medical management per medicine service Attending note: Independently evaluated, assessed, interviewed, and examined. Discussed extensively different options. Patient with significant gross hematuria and large amount of clot likely still remaining within bladder. Unknown source of bleed at this point. Did discuss possible causes including possible prostatic varicosities also discussed possibility of tumor lesion or other bleeding area. Discussed options moving forward. Patient continues to have issues passing clot material. Reviewed extensively options. Discussed possible interventions and options. Patient's complicated medical and surgical history was reviewed and summarized as above. Agree with findings. Patient's lab work was all reviewed agree with findings as above. Hemoglobin is currently stable at 12.8 white count is 10.49. Creatinine is stable at 0.85. Patient imaging was all reviewed interpreted by myself. Agree with findings. Large amount of what appears to be clot material still within the bladder on CT imaging. Vitals are currently stable. Risks and benefits discussed at length for procedure. These include bleeding, infection, injury to surrounding tissues or organs, and risks associated with anesthesia. Patient states understanding and agrees to proceed. Will sign consent and proceed. We will plan for cystoscopy with possible clot evacuation and fulguration. We will plan to monitor patient post procedure. We will await results of procedure and change as needed based on findings. May need to maintain catheter for short period of time afterwards will depend on source of bleeding as well as the ability to control any bleeding within the prostate or bladder. History of Present Illness Reason for Consultation: Hematuria Requesting Physician: Dr. Lagunas Attending Physician: Bony Arboleda MD History of Present Illness This is a 67-year-old male with past medical history of BPH with lower urinary tract symptoms, elevated PSA, and hematuria who presented to the emergency department on 08/16/2022 for evaluation of hematuria, lower abdominal pain and difficulty voiding. CT abdomen and pelvis without contrast notable for a 9 x 4.8 cm clot within the bladder, mild bladder distention; no urinary calculi or hydronephrosis. Olivares catheter was placed on initial presentation and he was discharged to follow-up with urology outpatient. Unfortunately he returned to ED again on 08/16/22 due to blocked Olivares catheter. ED notes, imaging, lab work, and urine studies reviewed. Patient was afebrile. Lab work in ED reviewed - Creatinine 0.93, hemoglobin 15.3, WBC 10.08. Urinalysis notable for 3+ blood, >30 RBC, otherwise unremarkable. On second presentation, patient's Olivares catheter was upsized to a 24 Prydeinig hematuria catheter. Olivares catheter was irrigated and he was started on CBI. He was admitted to the hospital medicine service. Urology is consulted for hematuria. Patient is known to our service. He follows with Dr. Santiago for history of BPH with obstruction, elevated PSA, last office visit was in 2020. Prior prostate biopsies in the past (last biopsy done in [place] ~1-2 years ago), negative for prostate cancer. Chart review: Afebrile, labscreatinine 0.85, WBC 10.49, hemoglobin 12.8. Patient seen and examined at bedside. present. Patient generally feeling well. He reports hematuria for the past few weeks with clots intermittently. He developed abdominal discomfort and difficulty voiding yesterday which prompted ER presentation. Denies flank, abdominal or suprapubic discomfort at this time. Olivares catheter patent and draining thin/transparent light aguilar red urine with CBI on slow, no clots noted. No nausea or vomiting. No fever or chills. He is currently NPO. No family history of malignancy. He reports he was no longer taking Tamsulosin or Finasteride prior to admission. No additional concerns at this time. Allergies Allergy/AdvReac Type Severity Reaction Status Date / Time bee venom protein (honey bee) Allergy Intermediate ITCHING Verified 08/16/22 16:32 AND BODY SWELLING Home Medications Medication Instructions Recorded Confirmed Type amlodipine 10 mg tablet 10 mg PO QAM 01/17/21 08/16/22 History hydrochlorothiazide 25 mg tablet 25 mg PO QAM 01/17/21 08/16/22 History lisinopril 40 mg tablet 40 mg PO QAM 07/16/21 08/16/22 History duloxetine 30 mg capsule,delayed 30 mg PO DAILY 09/26/21 08/16/22 History release (Cymbalta) albuterol sulfate 90 mcg/actuation 2 inh inhalation Q4H PRN shortness 02/07/22 08/16/22 Rx aerosol inhaler (Ventolin HFA) of breath or wheezing #6.7 grams fluoxetine 20 mg capsule 20 mg PO DAILY 08/16/22 08/16/22 History Patient History Medical History Anxiety Degenerative joint disease (DJD) of hip Hyperlipidemia Hypertension Pain due to total right knee replacement Shingles HX Surgical History History of needle biopsy PROSTATE History of shoulder surgery right History of tonsillectomy Family History Father Hypertension Other Heart disease Leukemia Social History Smoking Status: Never smoker Tobacco Type: Smokeless Tobacco (Dip or Chew) Second Hand Exposure: No; Do You Dip or Chew Tobacco: Yes (ADVISED); Hx Alcohol Use: No Hx Substance Use: No Preferred Language: Italian Communication Ability: Effective Clinical Unit Coordinator Required: No Beliefs That Will Affect Care: None marital status: Current Living Situation: Spouse Current Living Situation Comment: home w spouse current occupational status: employed 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[employer] Other Information That Helps Us Care for You: No Feels Safe at Home: Yes Safety Concerns: Feels Safe At This Time Assistive Devices: Denture - Upper and Denture - Lower Review of Systems Review of Systems: All systems reviewed & are unremarkable except as noted in HPI & below Physical Exam Constitutional: well developed and well nourished; no acute distress and not ill appearing Eyes: no scleral abnormality Neck: trachea midline Respiratory: normal respiratory effort and able to speak in complete sentences; no respiratory distress and no labored breathing Cardiovascular: Extremities: no pedal edema Gastrointestinal (Abdomen): Inspection/Auscultation: abdomen normal to inspection; abdomen not distended Percussion/Palpation: abdomen soft; abdomen nontender and no guarding Musculoskeletal: Head/Neck/Chest: normocephalic and head atraumatic Skin: no rashes, warm and dry Neurologic: moves all extremities and awake Psychiatric: Orientation: alert and oriented x 3 Genitourinary: Olivares catheter patent and draining thin/transparent light aguilar red urine with CBI on slow, no clots noted. Olivares manually irrigated during exam. Moderate amount of small clots returned. Patient tolerated procedure well, no complications noted. Olivares draining appropriately at completion. Results & Data Vital Signs (Past 12 Hours) Vital Signs Temp Pulse Pulse Resp BP BP Pulse Ox 08/17/22 08:42 72 08/17/22 07:45 37.2 C 64 16 151/73 H 96 08/17/22 03:01 87 08/17/22 01:49 36.9 C 84 18 153/83 H 94 08/17/22 01:15 75 19 125/77 92 08/16/22 21:16 86 19 119/67 94 O2 Del Method 08/17/22 08:42 08/17/22 07:45 Room Air 08/17/22 03:01 08/17/22 01:49 Room Air 08/17/22 01:15 Room Air 08/16/22 21:16 Room Air PG Care Time/CCT Total # of Minutes Spent Total Time Spent with Patient: Total time spent is greater than 50% in coordination of care (as documented) at patient's floor/unit and/or counseling patient: Coding Level of Care Code 33722 INT INP/OBS CARE 2/55MIN Diagnoses Hematuria R31.9 Hematuria type: unspecified type Complication, blocked Olivares catheter T83.091A Encounter type: initial encounter Time Spent (min) 60 (1) Hematuria Hematuria type: unspecified type Qualified Code(s): R31.9 - Hematuria, unspecified (2) Complication, blocked Olivares catheter Encounter type: initial encounter Qualified Code(s): T83.091A - Other mechanical complication of indwelling urethral catheter, initial encounter
[2022-08-17] MEDS ORDERED: cefTRIAXone SODIUM 1,000 MG in DEXTROSE 5% AD-VAN 50 ML IV SCH (09:00)
[2022-08-17] MEDS: cefTRIAXone SODIUM 2,000 MG in DEXTROSE 5% 50 ML IV SCH (09:39)
--- NOTE | 2022-08-17 13:29 | Anesthesiology Consultation ---
Date of Service August 17, 2022 Assessment & Plan Chart Review Chart Review: Acceptable Risk for Surgery and Patient NOT seen in Pre Admission Testing History Surgery Operation Date: 08/17/22 12:30 Proposed Procedures p Cystoscopy, Clot Evacuation, Possible Fulguration - Jhony Herrera DO Height/Weight Height: 5 ft 11 in Weight: 112.4 kg Allergies Allergy/AdvReac Type Severity Reaction Status Date / Time bee venom protein (honey bee) Allergy Intermediate ITCHING Verified 08/16/22 16:32 AND BODY SWELLING Medications Home Medications Medication Instructions Recorded Confirmed Last Taken amlodipine 10 mg tablet 10 mg PO QAM 01/17/21 08/16/22 08/16/22 08:00 hydrochlorothiazide 25 mg tablet 25 mg PO QAM 01/17/21 08/16/22 08/16/22 08:00 lisinopril 40 mg tablet 40 mg PO QAM 07/16/21 08/16/22 08/16/22 08:00 duloxetine 30 mg capsule,delayed 30 mg PO DAILY 09/26/21 08/16/22 08/16/22 08:00 release (Cymbalta) albuterol sulfate 90 mcg/actuation 2 inh inhalation Q4H PRN shortness 02/07/22 08/16/22 08/16/22 08:00 aerosol inhaler (Ventolin HFA) of breath or wheezing #6.7 grams fluoxetine 20 mg capsule 20 mg PO DAILY 08/16/22 08/16/22 08/16/22 08:00 Active Medications Generic Name Dose Route Start Last Admin Trade Name Freq PRN Reason Stop Dose Admin Acetaminophen 650 mg 08/16/22 22:02 08/17/22 02:10 Acetaminophen 325 Mg Tab PO 09/15/22 22:01 650 mg Q6H PRN Administration Fever/pain Amlodipine Besylate 10 mg 08/17/22 09:00 08/17/22 07:52 Amlodipine Besylate 5 Mg Tab PO 09/16/22 08:59 10 mg QAM INDIO Administration Duloxetine HCl 30 mg 08/17/22 09:00 08/17/22 07:52 Duloxetine Hcl 30 Mg Cap PO 09/16/22 08:59 30 mg DAILY INDIO Administration Fluoxetine HCl 20 mg 08/17/22 09:00 08/17/22 07:52 Fluoxetine Hcl 20 Mg Cap PO 09/16/22 08:59 20 mg DAILY INDIO Administration Sodium Chloride 1,000 mls @ 60 mls/hr 08/16/22 23:09 08/16/22 23:38 Nss 1000ml IV 08/17/22 15:48 60 mls/hr .[id number] ONE Administration Ceftriaxone Sodium 2,000 mg/ 70 mls @ 140 mls/hr 08/17/22 09:30 08/17/22 10:12 Dextrose IV 08/19/22 09:29 Infused Q24H INDIO Infusion Oxycodone HCl 5 - 10 mg 08/16/22 22:02 08/17/22 03:26 Oxycodone Hcl Ir 5 Mg Tab (Immediate Release) PO 08/30/22 22:01 5 mg QID PRN Administration Pain Tamsulosin HCl 0.4 mg 08/17/22 05:20 08/17/22 06:35 Tamsulosin Hcl 0.4 Mg Cap PO 09/16/22 05:19 0.4 mg QAM INDIO Administration Past Medical History Medical History Anxiety Degenerative joint disease (DJD) of hip Hyperlipidemia Hypertension Pain due to total right knee replacement Shingles HX Past Family History Family History Father Hypertension Other Heart disease Leukemia Past Surgical History Surgical History History of needle biopsy PROSTATE History of shoulder surgery right History of tonsillectomy Social History Smoking Status: Never smoker tobacco type: smokeless tobacco Do You Dip or Chew Tobacco: Yes (ADVISED) Hx Alcohol Use: No alcohol intake frequency: holidays/special occasions only Hx Substance Use: No substance use type: does not use Physical Exam Vital Signs Last Vital Signs Temp 37.1 C 08/17/22 11:43 Pulse 90 08/17/22 11:43 Resp 12 08/17/22 11:43 BP 110/80 08/17/22 11:43 Pulse Ox 91 08/17/22 11:43 O2 Del Method Room Air 08/17/22 11:43 Testing Laboratory Results 08/17/22 05:47 08/17/22 07:22
--- NOTE | 2022-08-17 14:03 | Hospitalist Progress Note ---
Date of Service August 17, 2022 Assessment & Plan (1) Hematuria: Plan: Hematuria Obstructive uropathy Secondary to clot burden, BPH H/O BPH Planned for cystoscopy, clot evacuation and possible fulguration On CBI Appreciate urology input Monitor H&H and transfuse as needed Chronic right upper quadrant abdominal discomfort Reports intermittent pain for many months --CT ABD:No urinary calculi or hydronephrosis. 9 x 4.8 cm clot within the bladder. Mild bladder distention. No associated urothelial lesion identified although sensitivity diminished on this unenhanced exam. The bladder could be assessed with a nonemergent cystoscopy. No bowel obstruction. Colonic diverticulosis without evidence for acute diverticulitis. -- Normal LFTs Check right upper quadrant ultrasound Hypertension Continue amlodipine Monitor Hyperlipidemia H/O statin intolerance Prediabetes HbA1C: 5.17 January 2022 Mood disorder Continue home medications BPH Continue Flomax DVT Px: SCDs Re: Hematuria Code Status Full code Admission and Anticipated Discharge Date Admission Date: August 16, 2022 Subjective Patient is seen and examined at bedside [place] colored urine noted in catheter this morning States feeling better today Less bladder pain Plan for cystoscopy, clot evacuation today Reports chronic minimal right upper quadrant abdominal pain intermittently Denies any chest pain, dyspnea, dizziness, nausea, vomiting No other complaints Review of Systems Review of Systems: All systems reviewed & are unremarkable except as noted in Subjective Physical Exam Physical Exam: Physical Exam: Vitals signs as noted above General Appearance:Obese, no apparent distress Head: normocephalic, Atraumatic Eyes: normal inspection, EOMI Neck: supple, Trachea midline Respiratory/Chest: Normal breath sounds, CTA, No accessory muscle use Cardiovascular: S1, S2, No murmur Abdomen/GI:Soft, minimal RUQ tender, Bowel sounds present Extremities/Musculoskeletal:normal inspection, no edema Neurologic/Psych:AAOX3, grossly no focal neurological deficits Skin: normal color, warm Results & Data Results & Data Vital Signs (Past 12 Hours) Vital Signs Temp Pulse Pulse Resp BP Pulse Ox O2 Del Method 08/17/22 11:43 37.1 C 90 12 110/80 91 Room Air 08/17/22 08:42 72 08/17/22 07:45 37.2 C 64 16 151/73 H 96 Room Air 08/17/22 03:01 87 Laboratory Results Short CBC 05/08/23 05/08/23 Range/Units 00:54 05:47 WBC 10.49 (4.8-10.8) K/ul Hgb 12.9 L 12.8 L (14.0-18.0) g/dl Hct 37.9 L 37.2 L (42.0-52.0) % Plt Count 323 (130-400) K/uL BMP 08/17/22 08/17/22 08/17/22 00:54 05:47 07:22 Sodium 135 L 136 Potassium 4.3 TNP 4.4 Chloride 100 100 Carbon Dioxide 28 31 BUN 19 19 Creatinine 0.91 0.85 Glucose 117 H 104 H Calcium 8.5 L 8.4 L (1) Hematuria Hematuria type: unspecified type Qualified Code(s): R31.9 - Hematuria, unspecified
[2022-08-17] MEDS ORDERED: ONDANSETRON INJ 2 MG/ML 2 ML VIAL ONE (15:05)
[2022-08-17] MEDS ORDERED: PROPOFOL IV EMULSION 10 MG/ML 20 ML VIAL IV ONE ×2 (15:05→16:53)
[2022-08-17] MEDS ORDERED: LIDOCAINE 2% 2 ML VIAL/AMP(20MG/ML) INFIL ONE (15:05)
[2022-08-17] MEDS ORDERED: MIDAZOLAM HCL 1 MG/ML 2ML VIAL ONE (15:41)
[2022-08-17] MEDS ORDERED: fentaNYL citrate PF 100 MCG/2 ML VIAL ONE (15:41)
[2022-08-17] MEDS ORDERED: ePHEDrine sulfate 50 MG/ML AMP IV PRN (16:09)
[2022-08-17] MEDS ORDERED: ONDANSETRON INJ 2 MG/ML 2 ML VIAL IV PRN (16:09)
[2022-08-17] MEDS ORDERED: HYDROmorphone INJ 2 MG/ML SYR/VIAL IV PRN (16:09)
[2022-08-17] MEDS ORDERED: ATROPINE SULFATE 0.1 MG/ML 10ML SYR IV PRN (16:09)
[2022-08-17] MEDS ORDERED: KETAMINE 50 MG/5 ML SYRINGE ONE (16:52)
--- NOTE | 2022-08-17 17:06 | Operative Report ---
[facility] Post Operative Report Pre & Post Diagnosis Operation Date: 08/17/22 12:30 Pre-Op Diagnosis: Hematuria. Complication, blocked Olivares catheter. Post-Op Diagnosis: Hematuria. Complication, blocked Olivares catheter. I identified the patient and participated in the time-out.: Yes Procedure Operation Date: 08/17/22 12:30 Actual Procedures p Cystoscopy with clot evacuation and fulguration of bleeding prostatic varicosities - Jhony Herrera, DO Surgeon Jhony Herrera, II, DO Postdoctoral Fellow None Estimated Blood Loss 5 Findings Consistent with Post-Op Diagnosis Extremely large prostate with very large bleeding prostatic varicosities most significant at the bladder neck, the anterior prostate, the median lobe, and the region around the Veru. Extremely high bladder neck with elongated prostate with severe projection of prostate within the bladder. Moderate area of inflamed tissue on the posterior wall appears to be related to Olivares catheter tip possibly due to attempted bedside irrigation. No masses tumors lesions or other areas concern within the bladder. Thickened bladder lining with trabeculation and irritation. Large amount of old appearing blood clot within the bladder irrigated clear Specimens None Drains 22Fr coud catheter Anesthesia Type General Complications none Disposition Disposition: Recovery Room Indications Patient with obstruction due to prostate enlargement with development of gross hematuria. Patient had clot retention and inability to void and a catheter was placed with inability to fully clear blood. Risks and benefits discussed at length. Description of Procedure Patient was consented and brought back to the operating room. Patient was placed under anesthesia in the supine position and moved to the dorsal lithotomy position. Patient was prepped and draped in the regular sterile fashion. A time out was completed. A 30degree Cystoscope was placed into the bladder and the entire bladder was examined. The UO's were identified as well as the bladder neck, trigone, dome, and the other important landmarks. The prostatic urethra and large lobes/adenoma was assessed and the veru and bladder neck identified and area/size was assessed. The prostate was found to be extremely large. There is a significant amount of prostate projecting into the bladder the bladder neck was severely elevated and a significant amount of pressure was needed in order to maintain the end of the scope in the bladder. Within the prostatic urethra there were numerous areas of significant bleed from prostatic varicosities. Most severe was in the region of the median lobe near the bladder neck. The majority of the bladder neck also had areas of very large varicosities with bleeding. The anterior portion of the prostatic urethra had a large amount of very large prostatic varicosities that were easily bleeding and the region near the distal prostatic urethra was found to be irritated with large varicosities also bleeding. Numerous images were captured of the areas including the prostatic urethra the large lateral lobes the large median lobe and the areas of trabeculation and irritation within the bladder. A significant amount of irritation was found on the posterior wall with 2 red irritated areas directly posterior likely the site of the catheter tip irritating the bladder wall. Also possibly irritation and inflammation secondary to attempts to hand irrigate on the floor. The resection scope was placed and the fine bipolar loop was selected. The la rge prostatic varicosities were all fulgurated with plans to completely ablate and control the bleeding. After extensive fulguration especially near the median lobe at the bladder neck and near the Veru the urine did clear significantly. The bladder was then better able to be visualized. A large amount of old appearing blood clot did remain within the bladder. This was irrigated numerous times. After extensive irrigation the large amount of clot was completely cleared. The bladder was inspected a second time. No areas of active bleeding or major findings such as mass or tumor. There was a significant amount of prostatic tissue projecting into the bladder especially on the right lateral lobe. The prostate was found to be significantly obstructed secondary to prostate enlargement. The prostatic urethra was examined a second time. The area closest to the distal portion of the prostatic urethra was found to have additional areas of bleeding. The anterior portion of the prostate also had additional areas requiring fulguration. The bladder neck was inspected a second time and a few of additional areas were also fulgurated there. The lateral lobes of the prostate were inspected and any bleeding areas were fulgurated/cauterized and the entire area inspected. All bleeding was controlled. The bladder was inspected a final time. The bladder was emptied and irrigated. All specimen and debris/blood clot was removed. The scope was removed with the bladder partially full. A 22 [place] coud catheter was placed and balloon elevated. This was easily irrigated. The patient was cleaned, aroused from anesthesia, and transferred to the pacu in stable condition having tolerated the procedure well with no complications. I was present and participated in all aspects of the procedure. The patient will be monitored in the PACU until transferred. We will have patient transferred back to the floor. We will monitor urine output throughout the evening. We will likely need to discuss management of the severe prostatic enlargement. No obvious tumors or masses but may need a reinspection. We will plan to have outpatient follow-up after patient resolves the acute episode I attest to the content of the Intraoperative Record and any orders documented therein. Any exceptions are noted below.
[2022-08-17] MEDS: fentaNYL citrate PF 100 MCG/2 ML VIAL IV PRN ×2 (17:34→17:39)
--- NOTE | 2022-08-17 19:54 | Anesthesiology Progress Note ---
Date of Service August 17, 2022 Anesthesia Post Procedure Vital Signs Vital Signs: Temp Pulse Pulse Pulse Resp BP BP 08/17/22 19:00 37.2 C 107 H 18 122/76 08/17/22 18:57 37.2 C 102 H 16 106/69 08/17/22 17:50 91 H 18 110/68 08/17/22 17:40 95 H 14 121/72 08/17/22 17:30 36.1 C L 85 16 128/78 08/17/22 17:20 98 H 16 149/85 H 08/17/22 17:13 36 C L 100 H 20 126/85 08/17/22 15:46 36.9 C 93 H 20 120/71 08/17/22 11:43 37.1 C 90 12 110/80 08/17/22 08:42 72 08/17/22 07:45 37.2 C 64 16 151/73 H 08/17/22 03:01 87 08/17/22 01:49 36.9 C 84 18 153/83 H 08/17/22 01:15 75 19 125/77 08/16/22 21:16 86 19 119/67 Pulse Ox O2 Del Method O2 Flow Rate 08/17/22 19:00 94 Room Air 08/17/22 18:57 08/17/22 17:50 95 Room Air 08/17/22 17:40 93 Nasal Cannula 2 08/17/22 17:30 93 Room Air 08/17/22 17:20 93 Room Air 08/17/22 17:13 97 Oxymask 6 08/17/22 15:46 94 Room Air 08/17/22 11:43 91 Room Air 08/17/22 08:42 08/17/22 07:45 96 Room Air 08/17/22 03:01 08/17/22 01:49 94 Room Air 08/17/22 01:15 92 Room Air 08/16/22 21:16 94 Room Air Pain Intensity Pelvic: Pain Intensity: 0 Penis: Pain Intensity: 4 Transfer of Care Handoff Completed per policy Notes Mental Status: alert / awake / arousable and participated in evaluation Patient Amnestic to Procedure: Yes Nausea / Vomiting: adequately controlled Pain: adequately controlled Airway Patency, RR, SpO2: stable & adequate BP & HR: stable & adequate Hydration State: stable & adequate Anesthetic Complications: no major complications apparent and Pt Satisfied with anesthetic care
[2022-08-17] MEDS ORDERED: TAMSULOSIN HCL 0.4 MG CAP PO SCH (21:00)
[2022-08-18 07:12] LABS: Hematocrit (blood only) 35.7 % (42.0-52.0); Hemoglobin 12.3 g/dl (14.0-18.0)
[2022-08-18 07:19] LABS: BUN Creatinine Ratio 20.2 (10-20); Calcium 8.9 mg/dl (8.6-10.3); Creatinine Clr Calc Pharmacy 105.6 ml/min; Est GFR (Non-African American) 89.7 ml/min; Potassium 4.3 mmol/L (3.5-5.1)
[2022-08-18] MEDS: amLODIPine BESYLATE 5 MG TAB PO SCH (08:18)
[2022-08-18] MEDS: FINASTERIDE 5 MG TAB PO SCH (08:19)
[2022-08-18] MEDS: TAMSULOSIN HCL 0.4 MG CAP PO SCH (08:19)
[2022-08-18] MEDS: FLUoxetine HCL 20 MG CAP PO SCH (08:19)
[2022-08-18] MEDS: DULoxetine HCL 30 MG CAP PO SCH (08:20)
[2022-08-18] MEDS: oxyCODONE HCL IR 5 MG TAB (IMMEDIATE RELEASE) PO PRN ×2 (08:22→17:47)
[2022-08-18] MEDS: cefTRIAXone SODIUM 2,000 MG in DEXTROSE 5% 50 ML IV SCH (08:30)
--- NOTE | 2022-08-18 12:51 | Urology Progress Note ---
Date of Service August 18, 2022 Assessment & Plan (1) Hematuria: Plan: - Pt POD#1 s/p cystoscopy, clot evacuation and fulguration. - Doing well, progressing as expected. - Afebrile, lab work reviewed - creatinine 0.89, Hgb 12.3. - Olivares draining appropriately - urine has cleared. - Recommend maintain Olivares for now and can attempt voiding trial in 1-2 days if urine remains clear. - Can try Pyridium and oxybutynin for catheter discomfort. - Continue Tamsulosin and Finasteride at discharge. - Okay to discharge from perspective when medically stable. - Expected clinical course reviewed, all questions answered. - Will arrange outpatient follow-up with our service. Admission and Anticipated Discharge Date Admission Date: August 16, 2022 Subjective No acute issues overnight. Reports some dysuria and urgency with catheter. Olivares draining concentrated yellow urine. No nausea or vomiting. No fever or chills. He reports he is going for an US of his gallbladder due to right upper quadrant discomfort. Review of Systems Constitutional: as per Subjective / HPI Gastrointestinal: as per Subjective / HPI Genitourinary: + as per Subjective / HPI Physical Exam Constitutional: well developed and well nourished; no acute distress and not ill appearing Respiratory: normal respiratory effort and able to speak in complete sentences; no respiratory distress and no labored breathing Gastrointestinal (Abdomen): Inspection/Auscultation: abdomen normal to inspection; abdomen not distended Musculoskeletal: Head/Neck/Chest: normocephalic and head atraumatic Neurologic: moves all extremities and awake Psychiatric: Orientation: alert and oriented x 3 Genitourinary: Olivares catheter patent and draining yellow urine Results & Data Vital Signs (Past 12 Hours) Vital Signs Temp Pulse Pulse Resp BP Pulse Ox O2 Del Method 08/18/22 08:30 Room Air 08/18/22 06:01 109 H 08/18/22 07:26 37.1 C 100 H 16 131/76 95 Room Air 08/18/22 04:00 37.0 C 95 H 19 136/80 95 Room Air 08/17/22 23:40 91 H PG Care Time/CCT Total # of Minutes Spent Total Time Spent with Patient: Total time spent is greater than 50% in coordination of care (as documented) at patient's floor/unit and/or counseling patient: Coding Level of Care Code 34867 SUB INP/OBS CARE 05/06MIN Diagnoses Hematuria R31.9 Hematuria type: unspecified type (1) Hematuria Hematuria type: unspecified type Qualified Code(s): R31.9 - Hematuria, unspecified
[2022-08-18] MEDS ORDERED: PHENAZOPYRIDINE HCL 100 MG TAB PO PRN (14:07)
--- NOTE | 2022-08-18 17:12 | Hospitalist Progress Note ---
Date of Service August 18, 2022 Assessment & Plan (1) Hematuria: Plan: Hematuria Obstructive uropathy Secondary to bleeding prostatic varicosities and blocked Olivares catheter H/O BPH S/P cystoscopy, clot evacuation and fulguration on 08/17/22 Appreciate urology input Monitor H&H and transfuse as needed Plan for voiding trial in 1 to 2 days Pyridium as needed Needs follow-up with urology upon discharge Continue tamsulosin, finasteride Chronic right upper quadrant abdominal discomfort Reports intermittent pain for many months --CT ABD:No urinary calculi or hydronephrosis. 9 x 4.8 cm clot within the bladder. Mild bladder distention. No associated urothelial lesion identified although sensitivity diminished on this unenhanced exam. The bladder could be assessed with a nonemergent cystoscopy. No bowel obstruction. Colonic diverticulosis without evidence for acute diverticulitis. -- Normal LFTs ABD ultrasound pending Reports intermittent abdominal pain Further management based on ultrasound results Hypertension Continue amlodipine Monitor Hyperlipidemia H/O statin intolerance Prediabetes HbA1C: 5.17 January 2022 Mood disorder Continue home medications BPH Continue Flomax DVT Px: SCDs Re: Hematuria Code Status Full code Admission and Anticipated Discharge Date Admission Date: August 16, 2022 Subjective Patient is seen and examined at bedside Patient states having minimal hematuria, much improved from prior Also reports some bladder pressure-like sensation Abdominal ultrasound pending Discussed with urology today Denies any chest pain, dyspnea, dizziness, nausea, vomiting No significant abdominal pain today Review of Systems 2 Review of Systems: All systems reviewed & are unremarkable except as noted in Subjective Physical Exam Physical Exam: Physical Exam: Vitals signs as noted above General Appearance:Obese, no apparent distress Head: normocephalic, Atraumatic Eyes: normal inspection, EOMI Neck: supple, Trachea midline Respiratory/Chest: Normal breath sounds, CTA, No accessory muscle use Cardiovascular: S1, S2, No murmur Abdomen/GI:Soft, minimal RUQ tender, Bowel sounds present Extremities/Musculoskeletal:normal inspection, no edema Neurologic/Psych:AAOX3, grossly no focal neurological deficits Skin: normal color, warm Results & Data Results & Data Vital Signs (Past 12 Hours) Vital Signs Temp Pulse Pulse Resp BP Pulse Ox O2 Del Method 08/18/22 16:26 36.8 C 93 H 16 132/77 94 Room Air 08/18/22 15:37 89 08/18/22 11:52 37.0 C 102 H 16 134/76 94 Room Air 08/18/22 08:30 Room Air 08/18/22 06:01 109 H 08/18/22 07:26 37.1 C 100 H 16 131/76 95 Room Air Laboratory Results Short CBC 08/18/22 Range/Units 06:30 Hgb 12.3 L (14.0-18.0) g/dl Hct 35.7 L (42.0-52.0) % BMP 08/18/22 06:30 Sodium 134 L Potassium 4.3 Chloride 99 Carbon Dioxide 27 BUN 18 Creatinine 0.89 Glucose 102 H Calcium 8.9 (1) Hematuria Hematuria type: unspecified type Qualified Code(s): R31.9 - Hematuria, unspecified
--- NOTE | 2022-08-18 19:12 | Ultrasound Report ---
US gallbladder CLINICAL HISTORY: ruq pain TECHNIQUE: Multiple real-time sonographic images of the right upper quadrant were obtained. Comparison: Comparison is made to CT abdomen pelvis 08/16/2022 FINDINGS: The liver is diffusely echogenic in appearance with poor ultrasound penetration, with normal contour, which is consistent with fatty infiltration. No focal mass lesions are seen. No intrahepatic duct al dilatation is seen. The gallbladder wall is mildly prominent measuring up to 3.6 mm. No stones ar e seen. A sonographic Nugent's sign was not elicited by the mental retardation nurse. The common duct measures c m in diameter at the level of the hepatic artery. The visualized portions of the pancreas appear nor mal. The right kidney shows normal echogenicity, cortical thickness and renal contour. The right kidney sh ows no evidence of hydronephrosis or mass. No ascites or free fluid is seen in Lemus's pouch. IMPRESSION: 1. No evidence of acute cholecystitis. 2. Hepatic steatosis. ACT 112: Negative or not required by law. Electronically signed by: Cornelius Spear M.D. 08/18/2022 7:10 PM
[2022-08-19] MEDS: oxyCODONE HCL IR 5 MG TAB (IMMEDIATE RELEASE) PO PRN (03:39)
[2022-08-19 07:26] VITALS: O2SAT 94
[2022-08-19 07:36] LABS: Hematocrit (blood only) 31.8 % (42.0-52.0); Hemoglobin 10.6 g/dl (14.0-18.0); Mean Corpuscular Hemoglobin 28.9 pg (25.0-34.0); Mean Corpuscular Hgb Conc 33.3 g/dL (32.0-36.0); Mean Corpuscular Volume 86.6 fL (80.0-100.0); Mean Platelet Volume 9.5 fL (9.4-12.4); Platelet Count 264 K/uL (130-400); RDW Coefficient of Variation 13.2 % (11.5-14.5); RDW Standard Deviation 41.9 fL (36.4-46.3); Red Blood Count 3.67 M/uL (4.70-6.10); White Blood Count 8.82 K/ul (4.8-10.8)
[2022-08-19 07:53] LABS: BUN Creatinine Ratio 17.4 (10-20); Calcium 8.3 mg/dl (8.6-10.3); Est GFR (African American) 105.5 ml/min; Potassium 3.9 mmol/L (3.5-5.1)
[2022-08-19] MEDS: FINASTERIDE 5 MG TAB PO SCH (08:49)
[2022-08-19] MEDS: FLUoxetine HCL 20 MG CAP PO SCH (08:49)
[2022-08-19] MEDS: TAMSULOSIN HCL 0.4 MG CAP PO SCH (08:49)
[2022-08-19] MEDS: amLODIPine BESYLATE 5 MG TAB PO SCH (08:49)
[2022-08-19] MEDS: DULoxetine HCL 30 MG CAP PO SCH (08:56)
--- NOTE | 2022-08-19 08:57 | Urology Progress Note ---
Date of Service August 19, 2022 Assessment & Plan (1) Hematuria: Plan: - Pt POD#2 s/p cystoscopy, clot evacuation and fulguration. - Doing well, progressing as expected. - Afebrile and hemodynamically stable. - Lab work reviewed - creatinine 0.86, Hgb 10.6. - Olivares draining appropriately - urine remains clear. - Okay to remove catheter today for voiding trial, monitor for void - bladder scan prn. - If unable to void, then recommend replace catheter and maintain until f/u with urology. - Continue Tamsulosin and Finasteride after discharge. - Okay to discharge from perspective when medically stable. - Expected clinical course reviewed, all questions answered. - Will arrange outpatient follow-up with our service. Admission and Anticipated Discharge Date Admission Date: August 18, 2022 Subjective Patient seen and examined at bedside this morning. present. He is awake, alert and sitting up in bed. No acute issues overnight. Reports he slept well. Continues to have some mild bladder discomfort/spasm and urgency sensation with catheter. Olivares patent and draining yellow urine this morning. No nausea or vomiting. No fever or chills. Review of Systems Constitutional: as per Subjective / HPI Gastrointestinal: as per Subjective / HPI Genitourinary: + as per Subjective / HPI Physical Exam Constitutional: well developed and well nourished; no acute distress and not ill appearing Respiratory: normal respiratory effort and able to speak in complete sentences; no respiratory distress and no labored breathing Gastrointestinal (Abdomen): Inspection/Auscultation: abdomen normal to inspection; abdomen not distended Musculoskeletal: Head/Neck/Chest: normocephalic and head atraumatic Neurologic: moves all extremities and awake Psychiatric: Orientation: alert and oriented x 3 Genitourinary: Olivares catheter patent and draining yellow urine Results & Data Vital Signs (Past 12 Hours) Vital Signs Temp Pulse Pulse Pulse Resp BP Pulse Ox 08/19/22 07:26 36.9 C 92 H 18 127/79 94 08/19/22 03:33 36.7 C 92 H 20 142/78 H 93 08/19/22 00:21 69 08/19/22 00:12 37.3 C 93 H 20 131/73 93 O2 Del Method 08/19/22 07:26 Room Air 08/19/22 03:33 Room Air 08/19/22 00:21 08/19/22 00:12 Room Air PG Care Time/CCT Total # of Minutes Spent Total Time Spent with Patient: Total time spent is greater than 50% in coordination of care (as documented) at patient's floor/unit and/or counseling patient: Coding Level of Care Code 72456 SUB INP/OBS CARE 05/06MIN Diagnoses Hematuria R31.9 Hematuria type: unspecified type (1) Hematuria Hematuria type: unspecified type Qualified Code(s): R31.9 - Hematuria, unspecified
[2022-08-19] MEDS ORDERED: MAGNESIUM HYDROXIDE SUSP 30 ML UDC PO ONE (09:32)
[2022-08-19] MEDS ORDERED: POLYETHYLENE (MIRALAX) 17 GM PACK PO SCH (09:45)
[2022-08-19 14:53] LABS: Basophils # (auto) 0.04 K/uL (0-0.2); Basophils % (auto) 0.5 %; Eosinophils # (auto) 0.24 K/uL (0-0.50); Eosinophils % (auto) 2.8 %; Hematocrit (blood only) 31.5 % (42.0-52.0); Hemoglobin 10.7 g/dl (14.0-18.0); Immature Granulocytes # (auto) 0.06 K/uL (0.01-0.20); Immature Granulocytes % (auto) 0.7 %; Lymphocytes # (auto) 1.95 K/uL (1.2-3.4); Mean Corpuscular Hemoglobin 29.4 pg (25.0-34.0); Mean Corpuscular Volume 86.5 fL (80.0-100.0); Mean Platelet Volume 9.7 fL (9.4-12.4); Monocytes # (auto) 1.07 K/uL (0.11-0.59); Monocytes % (auto) 12.6 %; Neutrophils # (auto) 5.13 K/uL (1.40-6.50); Neutrophils % (auto) 60.4 %; Platelet Count 281 K/uL (130-400); RDW Coefficient of Variation 13.2 % (11.5-14.5); RDW Standard Deviation 41.5 fL (36.4-46.3); Red Blood Count 3.64 M/uL (4.70-6.10); White Blood Count 8.49 K/ul (4.8-10.8)
[2022-08-19 15:41] VITALS: BP 125/75; TEMP 98.2
[2022-08-19 16:16] VITALS: PULSE 85
--- NOTE | 2022-08-19 16:50 | Discharge Summary ---
Date of Service August 19, 2022 Admission HPI Per Admitting Provider History obtained from patient, family, and records. Medical history significant for hypertension, hyperlipidemia/statin intolerance, prediabetes, mood disorder, BPH, OA. 2 weeks history of achy lower abdominal pain with hematuria. No fever, no chills, no chest pain, no SOB. Urinary retention later noted. Patient consulted ER this afternoon for progressive symptoms. Hemoglobin and kidney function stable. CT abdomen pelvis did not show any urinary calculi or hydronephrosis. Note of 9 x 4.8 cm bladder clot with bladder distention. Olivares catheter placed at the ER. Patient discharged home with instructions to follow-up with urologist. Worsening bladder pressure shortly after discharge from the ER. Patient returned to the ER. Olivares catheter replaced and continuous bladder irrigation initiated. Patient currently comfortable. Medical History as above Surgical History : Shoulder surgery, urologic procedures, tonsillectomy, cataract surgeries Family History : Heart disease, DM Personal/Social history : Non-smoker, occasional EtOH intake, retired [employer] employee Admission Exam Per Admitting Provider GENERAL: Comfortable, pleasant, obese, no respiratory distress SKIN: Pallor, warm HEENT: Pale palpebral conjunctivae, no ptosis, dry buccal mucosa NECK : Supple, short neck, no tenderness CHEST : CTA, no tenderness HEART : RRR, no obvious murmurs ABDOMEN: Some distention, nontender EXTREMITIES : Minimal LE swelling, no LE tenderness, no other conspicuous deformities noted NEUROLOGIC : Coherent, no facial asymmetry, no other gross focality Principal Diagnosis Hematuria secondary to bleeding prostatic varicosity and blocked Olivares catheter. Discharge Exam Physical Exam: Vitals signs as noted above General Appearance:Obese, no apparent distress Head: normocephalic, Atraumatic Eyes: normal inspection, EOMI Neck: supple, Trachea midline Respiratory/Chest: Normal breath sounds, CTA, No accessory muscle use Cardiovascular: S1, S2, No murmur Abdomen/GI:Soft, minimal RUQ tender, Bowel sounds present Extremities/Musculoskeletal:normal inspection, no edema Neurologic/Psych:AAOX3, grossly no focal neurological deficits Skin: normal color, warm Discharge Data Allergies Allergy/AdvReac Type Severity Reaction Status Date / Time bee venom protein (honey bee) Allergy Intermediate ITCHING Verified 08/16/22 16:32 AND BODY SWELLING Consultations 08/16/22 22:00 ED Decision to Admit Stat 08/17/22 01:30 Consult Urology Routine Procedures Performed Operation Date: 08/17/22 12:30 Actual Procedures p Cystoscopy, clot evacuation due to prostatic varicosities, fulguration - Jhony Herrera DO Ordered Studies 08/18/22 gallbladder Routine Hospital Course (1) Hematuria: Patient is a 67-year-old male with past medical history of BPH who presented to the ED on 08/16/2022 for evaluation of hematuria, lower abdominal pain and difficulty voiding. CT abdomen without contrast showed large clot within the bladder with mild bladder distention. Olivares was placed and patient was discharged to follow-up with urology outpatient. However, patient returned to ED on the same day with blocked Olivares catheter. He was found to have significant amount of blood clot when catheter was irrigated gated. Patient underwent cystoscopy, clot evacuation and fulguration on 08/17/22. The bleeding was thought to be secondary to bleeding prostatic varicosities and blocked Olivares catheter. After the procedure, patient was monitored. Olivares was taken out; patient had successful trial of void. Patient hemoglobin was stable around 10 at the time of the discharge. Patient was instructed to follow-up with primary care doctor and urology as outpatient. Total Time Total Time Spent Total Time Spent (In Minutes): 45 Total Time Includes: Examination of the Patient, Discharge Planning, Medication Reconciliation, Communication With Other Providers and Other Discharge Plan Discharge Items Patient Disposition: Home - Self-Care Reason For Visit: HEMATURIA (PRIVATE RM IF AVAILABLE ER FAM REQ) Discharge Diagnosis: Hematuria secondary to bleeding prostatic varicosities Activity: Resume your previous activity Non-emergency contact: Primary Care Provider Call non-emergency contact if: you have any medication questions Follow-up/Referrals: Corazon Daniels CRNP [Nurse Practitioner] - (The urology office will call you with an appointment for follow up.) Henrique Sommer MD [Primary Care Provider] - (Date & Time 08/27/2022 10:20 AM Provider Henrique Sommer MD [facility] ) Diet: Regular Addtl Attending Provider Instructions: You were admitted to the hospital with blood in the urine. Your evaluated by urologist while admitted here. You were found to have extremely large prostate with large bleeding prostatic varicosities which was the cause for the bleeding. You are prescribed tamsulosin and finasteride to be taken once daily. This was recommended by the urologist. This is for the enlarged prostate. You are also prescribed Pyridium 100 mg to be taken 3 times daily as needed for 6 doses for penile pain. It will done the urine color to orange or slightly red which is normal. You have appointment set up with your primary care doctor for next week. You will also receive a call from urology office to set up outpatient appointment. Pending Studies at Discharge: No Stand-Alone Forms: My [facility], Smoking Cessation Medications and DC Order Prescriptions: New tamsulosin 0.4 mg Capsule 0.4 mg PO QAM Qty: 30 0RF finasteride [Proscar] 5 mg Tablet 5 mg PO QAM Qty: 30 0RF phenazopyridine [Pyridium] 100 mg Tablet 100 mg PO TID PRN (Reason: pain) 2 Days Qty: 6 0RF Continued duloxetine [Cymbalta] 30 mg capsule,delayed release(DR/EC) 30 mg PO DAILY Rx Instructions: 30 mg PO DAILY INCREASE TO BID; hydrochlorothiazide 25 mg tablet 25 mg PO QAM amlodipine 10 mg tablet 10 mg PO QAM albuterol sulfate [Ventolin HFA] 90 mcg/actuation HFA aerosol inhaler 2 inh inhalation Q4H PRN (Reason: shortness of breath or wheezing) Qty: 6.7 1RF Rx Instructions: 2 puffs every 4-6 hrs as needed for wheezing lisinopril 40 mg Tablet 40 mg PO QAM fluoxetine 20 mg capsule 20 mg PO DAILY Discharge Orders: Discharge Order (Routine); Ordered 08/19/22 Ordered By: Pedrito Montgomery Admission Data Admit Date/Time: 08/18/22 17:56 Attending Provider: Pedrito Montgomery Admit Provider: Bony Arboleda Primary Care Provider: Henrique Sommer Other Providers: Shady Chu ; Daniel Santiago ; Usman Mcrae ; Pancho Pendleton ; Gabby Bowman ; Jhony Herrera ; Corazon Daniels ; Elisabeth Giles ; Tony Scott ; No Kiran ; Mireya Francis ; Satish Ferrari ; Jonathan,Alli W. Other Interventions: Discharge Summary Assessment (RN) Last Done: 08/19/22 16:15
--- NOTE | 2022-08-21 08:17 | Coding Query ---
ANEMIA To promote full compliance with coding requirements relating to patient care, physician participation is requested in all cases of ballet professor uncertainty. Please assist us with the question(s) below: Coding Question(s): The record reflects the following clinical findings: If these findings are indicative of anemia, please specify the known or suspected type by placing an "X" within the parenthesis (x). If other, please document type. Examples are: ( X) Acute blood loss anemia ( ) Acute Postoperative blood loss anemia ( ) Acute postoperative anemia due to dilutional fluids ( ) Chronic blood loss anemia ( ) Anemia of chronic disease ( ) Iron deficient anemia ( ) Anemia, unspecified or other ( ) Other: (please specify) Thank you Jane JACKSON
== END 2022-08-19 16:35 | disposition home or self-care (01) | DRG 666 ==
LOC: ED 18:52 → 2N 18:52 → SUATTDRO 23:12 → 2N 08-17 01:15 → SUATTDRO 08-18 17:56

== ENCOUNTER 2022-09-14 05:33 | Observation (INO) ==
--- NOTE | 2022-09-08 14:28 | Anesthesiology Consultation ---
Date of Service September 08, 2022 Assessment & Plan (1) Encounter for pre-operative examination: Plan - s/p 08/17/22 cystoscopy clot evacuation MAC. - COVID screening: Per farm or ranch animal caretaker on 09/08/2022: Travel screen negative, no known COVID-19 positive contacts or current COVID-19 related symptoms in past 2 weeks. To surgeon's discretion if preop COVID testing is needed. Chart Review Chart Review: Acceptable Risk for Surgery and Patient NOT seen in Pre Admission Testing History Surgery Operation Date: 09/14/22 13:10 Proposed Procedures p TURP (Transurethral Resection of the Prostate) - Jhony Herrera, DO Height/Weight Height: 5 ft 11 in Weight: 113.398 kg Allergies Allergy/AdvReac Type Severity Reaction Status Date / Time bee venom protein (honey bee) Allergy Intermediate ITCHING Verified 09/08/22 11:21 AND BODY SWELLING Medications Home Medications Medication Instructions Recorded Confirmed Last Taken amlodipine 10 mg tablet 5 mg PO QAM 01/17/21 09/08/22 08/16/22 08:00 hydrochlorothiazide 25 mg tablet 25 mg PO QAM 01/17/21 09/08/22 08/16/22 08:00 lisinopril 40 mg tablet 40 mg PO QAM 07/16/21 09/08/22 08/16/22 08:00 albuterol sulfate 90 mcg/actuation 2 inh inhalation Q4H PRN shortness 02/07/22 09/08/22 08/16/22 08:00 aerosol inhaler (Ventolin HFA) of breath or wheezing #6.7 grams fluoxetine 20 mg capsule 20 mg PO QAM 08/16/22 09/08/22 08/16/22 08:00 finasteride 5 mg tablet (Proscar) 5 mg PO QAM #30 tabs 08/19/22 09/08/22 Unknown tamsulosin 0.4 mg capsule 0.4 mg PO QAM #30 caps 08/19/22 09/08/22 Unknown diclofenac sodium 75 mg 75 mg PO QAM 09/08/22 09/08/22 Unknown tablet,delayed release Past Medical History Medical History (Updated 09/08/22 @ 14:23 by Janis Parra PA-C) Anxiety 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 History of COVID-19 2020--mild symptoms, no symptoms now Hyperlipidemia Hypertension Prediabetes Past Family History Family History Father Hypertension Other Heart disease Leukemia No family history of adverse response to anesthesia Past Surgical History Surgical History (Updated 09/08/22 @ 14:25 by Janis Parra PA-C) History of bilateral cataract extraction History of cystoscopy 08/17/22 @ [facility]--Cystoscopy with clot evacuation and fulguration of bleeding prostatic varicosities History of needle biopsy PROSTATE History of shoulder surgery right 08/28/21 LMA#5. History of tonsillectomy History of tooth extraction Status post left rotator cuff repair Social History Smoking Status: Never smoker tobacco type: smokeless tobacco Do You Dip or Chew Tobacco: Yes (ADVISED) Hx Alcohol Use: Yes alcohol intake frequency: holidays/special occasions only Hx Substance Use: No substance use type: does not use Lab Results Anesthesia Preop Results Results Anesthesia Widget: WBC 11.80 K/ul (4.8-10.8) H 09/08/22 Hgb 14.9 g/dl (14.0-18.0) 09/08/22 Hct 42.5 % (42.0-52.0) 09/08/22 Plt 383 K/uL (130-400) 09/08/22 Na 135 mmol/L (136-145) L 09/08/22 K 4.4 mmol/L (3.5-5.1) 09/08/22 Cl 101 mmol/L (98-107) 09/08/22 CO2 28 mmol/L (21-32) 09/08/22 BUN 23 mg/dl (6-23) 09/08/22 Creat 0.99 mg/dl (0.6-1.4) 09/08/22 Glucose Level 91 mg/dl (70-99(Fasting)) 09/08/22 Urine Color Red 08/16/22 Urine Appearance Turbid (Clear) A 08/16/22 Urine pH 7.0 (4.5-7.5) 08/16/22 Urine Specific [place] 1.025 (1.000-1.030) 08/16/22 Urine Protein 3+ (Negative) H 08/16/22 Urine Glucose (UA) Negative (Negative) 08/16/22 Urine Ketones Negative (Negative) 08/16/22 Urine Blood 3+ (Negative) H 08/16/22 Urine Nitrite Negative (Negative) 08/16/22 Urine Bilirubin Negative (Negative) 08/16/22 Urine Urobilinogen Negative (Negative) 08/16/22 Urine Leukocyte Esterase Negative (Negative) 08/16/22 SARS-CoV-2, RNA, NAAT NEGATIVE (NEGATIVE) 08/16/22 Testing Electrocardiogram Date: 09/08/22 NSR, rate 68 bpm Chest X-Ray Date: 08/16/22 *1view* No acute chest disease Stress Test Date: 02/05/21 Pharmacologic MPHR 113% Negative for inducible ischemia No significant valvular pathology EF 60-64% Other Testing Abdomen pelvis CT 08/16/22 1. No urinary calculi or hydronephrosis. 2. 9 x 4.8 cm clot within the bladder. Mild bladder distention. No associated urothelial lesion identified although sensitivity diminished on this unenhanced exam. The bladder could be assessed with a nonemergent cystoscopy. 3. No bowel obstruction. Colonic diverticulosis without evidence for acute diverticulitis.
[2022-09-14] MEDS ORDERED: LR 15ML/HR IV SCH (06:00)
[2022-09-14] MEDS ORDERED: HYDROmorphone INJ 1 MG/ML SYRINGE IV PRN (06:39)
[2022-09-14] MEDS ORDERED: ATROPINE SULFATE 0.1 MG/ML 10ML SYR IV PRN (06:39)
[2022-09-14] MEDS ORDERED: ePHEDrine sulfate 50 MG/ML AMP IV PRN (06:39)
[2022-09-14] MEDS ORDERED: ONDANSETRON INJ 2 MG/ML 2 ML VIAL IV PRN ×2 (06:39→06:50)
[2022-09-14] MEDS ORDERED: ALBUTEROL HFA 8 GM INHALER INH PRN (06:49)
--- NOTE | 2022-09-14 06:49 | History & Physical Bridge Note ---
Date of Service September 14, 2022 History & Physical Bridge Note I have examined the patient, reviewed the History & Physical and in the interval since the performance of the History & Physical I have noted the following changes of clinical significance: no changes noted
[2022-09-14] MEDS ORDERED: MoRPHine SULFATE 2 MG/ML CARP IV PRN (06:50)
[2022-09-14] MEDS ORDERED: PHENAZOPYRIDINE HCL 200 MG TAB PO PRN (06:50)
[2022-09-14] MEDS ORDERED: oxyCODONE/ACETAMINOPHEN 5mg/325mg TAB PO PRN (06:50)
[2022-09-14] MEDS ORDERED: PROPOFOL IV EMULSION 10 MG/ML 20 ML VIAL IV ONE (06:52)
[2022-09-14] MEDS ORDERED: ONDANSETRON INJ 2 MG/ML 2 ML VIAL ONE (06:52)
[2022-09-14] MEDS ORDERED: LIDOCAINE 2% 2 ML VIAL/AMP(20MG/ML) INFIL ONE (06:52)
[2022-09-14] MEDS ORDERED: fentaNYL citrate PF 100 MCG/2 ML VIAL ONE ×2 (06:52→07:49)
[2022-09-14] MEDS ORDERED: DEXAMETHASONE SOD INJ 4 MG/ML VIAL ONE (07:13)
[2022-09-14] MEDS ORDERED: ePHEDrine sulfate 50 MG/ML SYR ONE (07:51)
--- NOTE | 2022-09-14 08:26 | Operative Report ---
PG Post Operative Report Pre & Post Diagnosis Operation Date: 09/14/22 07:00 Pre-Op Diagnosis: Hematuria, Benign Prostatic Hyperplasia Post-Op Diagnosis: Hematuria, Benign Prostatic Hyperplasia I identified the patient and participated in the time-out.: Yes Procedure Operation Date: 09/14/22 07:00 Actual Procedures p TURP (Transurethral Resection of the Prostate)(Not Applicable) - Jhony Herrera DO Surgeon Jhony Herrera, II, DO Equity Manager None Estimated Blood Loss 10 Findings Consistent with Post-Op Diagnosis Large Prostate with obstruction. Specimens Prostate adenoma. Drains 24Fr [address] Catheter Anesthesia Type General Complications none Disposition Disposition: Recovery Room Indications Patient with obstruction due to prostate enlargement. Risks and benefits discussed at length. Description of Procedure Patient was consented and brought back to the operating room. Patient was placed under anesthesia in the supine position and moved to the dorsal lithotomy position. Patient was prepped and draped in the regular sterile fashion. A time out was completed. A 30degree Cystoscope was placed into the bladder and the entire bladder was examined. The UO's were identified as well as the bladder neck, trigone, dome, and the other important landmarks. The prostatic urethra and large lo bes/adenoma was assessed and the veru and bladder neck identified and area/size was assessed. The resection scope was placed and the fine bipolar loop was selected. Starting at the 5 and 7 o'clock positions, a channel was created from bladder neck to the veru. Only minor tissue was required to be resected from this portion. The lateral lobes were severely enlarged. Resection started at the 1 and 11 o'clock position. This was then carried down to the channel within the prostate. The right and left lateral lobes were severely enlarged. A large amount of resection was necessary. A small amount of resection was taken from the anterior prostate. The Specimen was removed and sent for analysis. The resection bed and any bleeding areas were fulgurated/cauterized and the entire area inspected. All bleeding was controlled. The bladder was inspected a final time. The bladder was emptied and irrigated. All specimen and debris was removed. The scope was removed with the bladder partially full. A catheter was placed and balloon elevated. This was easily irrigated. The patient was cleaned, aroused from anesthesia, and transferred to the pacu in stable condition having tolerated the procedure well with no complications. I was present and participated in all aspects of the procedure. The patient will be monitored in the PACU until transferred. Plan to observe overnight. Will maintain catheter for 7-10 days post procedure and remove in office. Can review path at same time. I attest to the content of the Intraoperative Record and any orders documented therein. Any exceptions are noted below.
[2022-09-14] MEDS: fentaNYL citrate PF 100 MCG/2 ML VIAL IV PRN ×3 (08:34→08:45)
[2022-09-14 09:39] LABS: Basophils # (auto) 0.03 K/uL (0-0.2); Basophils % (auto) 0.3 %; Eosinophils # (auto) 0.09 K/uL (0-0.50); Eosinophils % (auto) 0.9 %; Hematocrit (blood only) 40.8 % (42.0-52.0); Hemoglobin 13.6 g/dl (14.0-18.0); Immature Granulocytes # (auto) 0.08 K/uL (0.01-0.20); Immature Granulocytes % (auto) 0.8 %; Lymphocytes # (auto) 1.16 K/uL (1.2-3.4); Lymphocytes % (auto) 12.2 %; Mean Corpuscular Hgb Conc 33.3 g/dL (32.0-36.0); Mean Platelet Volume 9.1 fL (9.4-12.4); Monocytes % (auto) 4.2 %; Neutrophils # (auto) 7.78 K/uL (1.40-6.50); Neutrophils % (auto) 81.6 %; Platelet Count 263 K/uL (130-400); RDW Coefficient of Variation 14.1 % (11.5-14.5); RDW Standard Deviation 44.7 fL (36.4-46.3); Red Blood Count 4.69 M/uL (4.70-6.10); White Blood Count 9.54 K/ul (4.8-10.8)
[2022-09-14] MEDS: oxyCODONE/ACETAMINOPHEN 5mg/325mg TAB PO PRN ×3 (10:01→21:45)
[2022-09-14 10:18] LABS: Albumin Level 3.9 gm/dl (3.4-5.0); Bilirubin,Total 0.3 mg/dl (0.2-1.0); Calcium 8.8 mg/dl (8.6-10.3); Potassium 4.4 mmol/L (3.5-5.1)
[2022-09-14 10:24] LABS: Albumin Globulin Ratio 1.6 (0.9-2); BUN Creatinine Ratio 15.7 (10-20); Creatinine Clr Calc Pharmacy 81.7 ml/min; Est GFR (Non-African American) 66.4 ml/min; Globulin 2.5 gm/dl (2.5-4.0); Total Protein 6.4 gm/dl (6.0-8.3)
[2022-09-14] MEDS: SODIUM CHLORIDE 0.9% 1000ML 1,000 ML IV SCH ×2 (10:38→22:45)
[2022-09-14] MEDS: amLODIPine BESYLATE 5 MG TAB PO SCH (11:18)
[2022-09-14] MEDS: DOCUSATE SODIUM 100 MG CAP PO SCH ×3 (11:18→22:30)
[2022-09-14] MEDS: FLUoxetine HCL 20 MG CAP PO SCH (11:19)
[2022-09-14] MEDS: hydroCHLOROthiazide 25 MG TAB PO SCH (11:19)
[2022-09-14] MEDS: TAMSULOSIN HCL 0.4 MG CAP PO SCH (11:19)
[2022-09-14] MEDS: ceFAZolin 2000MG 2,000 MG/15 ML SYR IV SCH ×2 (15:28→22:46)
--- NOTE | 2022-09-14 15:29 | Anesthesiology Progress Note ---
Date of Service September 14, 2022 Anesthesia Post Procedure Vital Signs Vital Signs: Temp Pulse Pulse Resp BP Pulse Ox O2 Del Method 09/14/22 12:30 36.5 C 83 17 143/67 H 95 Room Air 09/14/22 11:32 36.4 C L 87 18 126/73 94 Room Air 09/14/22 10:32 37.1 C 83 18 122/74 93 Room Air 09/14/22 09:30 36.6 C 76 16 123/73 94 Room Air 09/14/22 09:15 88 17 131/72 95 Room Air 09/14/22 09:05 80 12 133/78 93 Room Air 09/14/22 08:55 36.8 C 86 15 134/76 96 Room Air 09/14/22 08:45 84 16 136/77 94 Room Air 09/14/22 08:35 76 17 139/74 98 Oxymask 09/14/22 08:29 36.5 C 80 18 124/76 98 Oxymask 09/14/22 06:00 36.7 C 60 20 169/81 H 98 Room Air O2 Flow Rate 09/14/22 12:30 09/14/22 11:32 09/14/22 10:32 09/14/22 09:30 09/14/22 09:15 09/14/22 09:05 09/14/22 08:55 09/14/22 08:45 09/14/22 08:35 5 09/14/22 08:29 9 09/14/22 06:00 Pain Intensity Penis: Pain Intensity: 7 Transfer of Care Handoff Completed per policy Notes Mental Status: alert / awake / arousable and participated in evaluation Patient Amnestic to Procedure: Yes Nausea / Vomiting: adequately controlled Pain: adequately controlled Airway Patency, RR, SpO2: stable & adequate BP & HR: stable & adequate Hydration State: stable & adequate Anesthetic Complications: no major complications apparent and Pt Satisfied with anesthetic care
[2022-09-15] MEDS: DOCUSATE SODIUM 100 MG CAP PO SCH (02:11)
[2022-09-15] MEDS: ceFAZolin 2000MG 2,000 MG/15 ML SYR IV SCH (06:16)
[2022-09-15] MEDS: TAMSULOSIN HCL 0.4 MG CAP PO SCH (07:52)
[2022-09-15] MEDS: FLUoxetine HCL 20 MG CAP PO SCH (07:52)
[2022-09-15] MEDS: hydroCHLOROthiazide 25 MG TAB PO SCH (07:52)
[2022-09-15] MEDS: amLODIPine BESYLATE 5 MG TAB PO SCH (07:52)
--- NOTE | 2022-09-15 08:13 | Urology Progress Note ---
Date of Service September 15, 2022 Assessment & Plan (1) BPH with obstruction/lower urinary tract symptoms: Plan: - Pt POD#1 s/p TURP with Dr. Herrera - Doing well, progressing as expected - Afebrile overnight - Tolerating PO diet - 3 way Olivares catheter intact, patent and draining clear yellow urine with CBI on slow - Plan to wean CBI today with plan to discontinue. CBI clamped @0730 - will reassess later this AM - Maintain Olivares catheter - Anticipate home with Olivares catheter later today presuming urine appropriate and he continues to progress as expected - Expected clinical course reviewed, all questions answered - Will arrange outpatient follow-up with our service for voiding trial Patient reassessed this am. Olivares draining pink urine with CBI clamped. Okay to discontinue CBI set up and clamp irrigation port. Patient is ready for discharge home today with Olivares catheter -orders placed. Admission and Anticipated Discharge Date Admission Date: September 14, 2022 Subjective Patient seen and examined at bedside. He is awake, alert and sitting up in bed. No acute issues overnight. Reports poor sleep. Olivares patent and draining clear yellow with CBI on slow. CBI clamped at 0730. No nausea or vomiting. Passing flatus. No fever or chills. Review of Systems Constitutional: as per Subjective / HPI Gastrointestinal: as per Subjective / HPI Genitourinary: + as per Subjective / HPI Physical Exam Constitutional: well developed and well nourished; no acute distress Respiratory: normal respiratory effort; no respiratory distress and no labored breathing Gastrointestinal (Abdomen): Inspection/Auscultation: abdomen normal to in spection; abdomen not distended Musculoskeletal: Head/Neck/Chest: normocephalic and head atraumatic Psychiatric: Orientation: alert and oriented x 3 Genitourinary: Olivares patent and draining clear yellow with CBI on slow. CBI clamped at 0730. Results & Data Vital Signs (Past 12 Hours) Vital Signs Temp Pulse Resp BP Pulse Ox O2 Del Method 09/15/22 07:44 37.0 C 76 16 152/79 H 97 Room Air 09/15/22 03:34 36.8 C 63 18 137/82 97 Room Air 09/14/22 20:48 37.1 C 94 H 18 142/78 H 94 Room Air PG Care Time/CCT Total # of Minutes Spent Total Time Spent with Patient: Total time spent is greater than 50% in coordination of care (as documented) at patient's floor/unit and/or counseling patient: Coding Level of Care Code None Diagnoses BPH with obstruction/lower urinary tract symptoms N40.1; N13.8
[2022-09-15 08:25] LABS: Hematocrit (blood only) 38.2 % (42.0-52.0); Hemoglobin 12.9 g/dl (14.0-18.0); Mean Corpuscular Hemoglobin 29.3 pg (25.0-34.0); Mean Corpuscular Hgb Conc 33.8 g/dL (32.0-36.0); Mean Corpuscular Volume 86.6 fL (80.0-100.0); Mean Platelet Volume 9.3 fL (9.4-12.4); Platelet Count 256 K/uL (130-400); RDW Coefficient of Variation 14.1 % (11.5-14.5); RDW Standard Deviation 45.1 fL (36.4-46.3); Red Blood Count 4.41 M/uL (4.70-6.10); White Blood Count 13.07 K/ul (4.8-10.8)
[2022-09-15 08:53] LABS: BUN Creatinine Ratio 16.5 (10-20); Calcium 8.7 mg/dl (8.6-10.3); Creatinine Clr Calc Pharmacy 103.3 ml/min; Est GFR (African American) 102.1 ml/min; Est GFR (Non-African American) 88.1 ml/min
== END 2022-09-15 11:25 | disposition home or self-care (01) ==
LOC: ASU 05:33 → 3N 05:33

== ENCOUNTER 2023-06-14 17:40 | Observation (INO) ==
--- NOTE | 2023-06-14 18:09 | ED Triage Note ---
Date of Service June 14, 2023 Provider in Triage Author: Iris Romero History of Present Illness This patient was briefly evaluated while in triage. An abbreviated physical exam was performed. This patient is a 67-year-old Male who presents to the ED for evaluation of multiple complaints. He has had some cold symptoms for the past few days. Today he coughed and felt a pop in the ribs. He has also had vomiting and diarrhea today. Physical Exam GENERAL: Non-toxic and in no acute distress. HEENT: Pupils equal. No obvious scleral icterus. HEART: Regular rate and rhythm. LUNGS: Clear to auscultation. No accessory muscle use. ABDOMEN: Tenderness in the LUQ, examined upright in a chair. NEURO: Alert and oriented. No obvious neurological deficits on quick neuro exam. Initial orders for labs and / or imaging were placed and patient was placed in the waiting area until a bed is available. Please see further documentation for the full ED course.
[2023-06-14 18:35] LABS: Basophils # (auto) 0.02 K/uL (0.00-0.20); Basophils % (auto) 0.2 %; Eosinophils # (auto) 0.04 K/uL (0.00-0.50); Eosinophils % (auto) 0.4 %; Hematocrit (blood only) 48.5 % (42.0-52.0); Hemoglobin 16.3 g/dl (14.0-18.0); Immature Granulocytes # (auto) 0.03 K/uL (0.01-0.20); Immature Granulocytes % (auto) 0.3 %; Lymphocytes # (auto) 0.88 K/uL (1.20-3.40); Lymphocytes % (auto) 8.5 %; Mean Corpuscular Hemoglobin 28.2 pg (25.0-34.0); Mean Corpuscular Hgb Conc 33.6 g/dL (32.0-36.0); Mean Corpuscular Volume 84.1 fL (80.0-100.0); Mean Platelet Volume 9.6 fL (9.4-12.4); Monocytes % (auto) 5.8 %; Neutrophils # (auto) 8.84 K/uL (1.40-6.50); Neutrophils % (auto) 84.8 %; Platelet Count 302 K/uL (130-400); RDW Coefficient of Variation 12.8 % (11.5-14.5); RDW Standard Deviation 39.2 fL (36.4-46.3); Red Blood Count 5.77 M/uL (4.70-6.10); White Blood Count 10.41 K/ul (4.8-10.8)
[2023-06-14 18:48] LABS: Albumin Globulin Ratio 1.7 (0.9-2); Albumin Level 4.7 gm/dl (3.4-5.0); BUN Creatinine Ratio 16.7 (10-20); Bilirubin,Total 0.4 mg/dl (0.2-1.0); Calcium 9.5 mg/dl (8.6-10.3); Est GFR (African American) 77.8 ml/min; Est GFR (Non-African American) 67.1 ml/min; Globulin 2.8 gm/dl (2.5-4.0); Potassium 4.1 mmol/L (3.5-5.1); Total Protein 7.5 gm/dl (6.0-8.3)
[2023-06-14] MEDS: OPTIRAY 320 500ml IV ONE (19:01)
--- NOTE | 2023-06-14 19:05 | XRay Report ---
XR chest 1V not portable HISTORY: 67 years-old Male left flank pain acute left-sided chest pain COMPARISON: 08/16/2022 TECHNIQUE: PA view of the chest FINDINGS: Cardiomediastinal and hilar silhouettes are within normal limits. No pneumothorax, pleural effusion o r airspace consolidation. Bones of the chest appear grossly intact. No acute displaced rib fracture i dentified. IMPRESSION: No acute process. ACT 112: Negative or not required by law. The above report was generated using voice recognition software. It may contain grammatical, syntax o r spelling errors. Electronically signed by: Yayo Kaplan M.D. 06/14/2023 7:04 PM
[2023-06-14 19:11] LABS: Influenza A virus by PCR Negative (Neg); Influenza B virus by PCR Negative (Neg); RSV by PCR Negative (Neg); SARS CoV2 RNA(COVID-19) Ceph NEGATIVE (Negative)
--- NOTE | 2023-06-14 19:53 | CT Scan Report ---
Exam(s): CT ABDOMEN + PELVIS With Contrast IV Amt: 82 ml optiray 320 EXAM: CT Abdomen and Pelvis With Intravenous Contrast CLINICAL HISTORY: Reason for exam: LUQ pain, vomiting. TECHNIQUE: Axial computed tomography images of the abdomen and pelvis with intravenous contrast. CTDI is 28.14 mGy and DLP is 1408.89 mGy-cm. Automated exposure control was utilized for the study. A dose lowering technique was utilized adhering to the principles of ALARA. CONTRAST: Patient received 82 ml optiray 320 of IV contrast COMPARISON: No relevant prior studies available. FINDINGS: Lung bases: Calcified granuloma at the RIGHT lung base. No consolidation. ABDOMEN: Liver: Hepatic steatosis. Gallbladder and bile ducts: Unremarkable. No calcified stones. No ductal dilation. Pancreas: Unremarkable. No mass. No ductal dilation. Spleen: Calcified splenic granulomas. Adrenals: Unremarkable. No mass. Kidneys and ureters: Unremarkable. No hydronephrosis or delayed nephrogram. Stomach and bowel: Mild liquid stool in the colon, correlate for diarrheal disease. Wall thickening of small bowel, concerning for mild enteritis. No obstruction. PELVIS: Appendix: No findings to suggest acute appendicitis. Bladder: Decompressed urinary bladder. Reproductive: Unremarkable as visualized. ABDOMEN and PELVIS: Intraperitoneal space: Unremarkable. No free air. No significant fluid collection. Bones/joints: No acute fracture. No dislocation. Soft tissues: Small fat-containing bilateral inguinal hernias. Vasculature: Unremarkable. No abdominal aortic aneurysm. Lymph nodes: Unremarkable. No enlarged lymph nodes. IMPRESSION: 1. Mild liquid stool in the colon, correlate for diarrheal disease. Wall thickening of small bowel, concerning for mild enteritis. 2. Hepatic steatosis. 3. Small fat-containing bilateral inguinal hernias. Electronically signed by: James Kemp MD 06/14/23 19:52 PM
[2023-06-14 20:57] LABS: Troponin I High Sensitivity 5.2 pg/ml (0-20)
--- NOTE | 2023-06-14 21:03 | Emergency Department Note ---
Impression & Plan Acute pancreatitis ED Provider Note NAME: VITA ARAIZA AGE: 67 SEX: M : 1955 ARRIVES VIA: Walk-In INFORMANT: Patient, ED PROVIDER(S): Andrei Gregg MD CHIEF COMPLAINT: Left abdominal pain HPI: This is a 67-year-old male presenting for left rib/abdominal pain. Patient states that this morning patient began having a significant midepigastric/left abdominal/rib pain. He notes that it started after a cough. He notes that it is slightly worse with eating. He notes it is persistent. Notes he has some nausea with vomiting. He also notes he had diarrhea later on this afternoon. He notes pain is still there and currently 7/10. Otherwise no recent fever, chills. No current nausea or vomiting. Did feel nauseous upon arrival to the ER. otherwise no chest pain or shortness this of breath ROS: See above HPI for pertinent positives & negatives. A total of 10 systems reviewed and were otherwise negative. PAST MEDICAL HISTORY: See Below PAST SURGICAL HISTORY: See Below FAMILY HISTORY: See Below SOCIAL HISTORY: See Below HOME MEDICATIONS: See Below ALLERGIES: See Below VITALS: See Below PHYSICAL EXAMINATION: General: resting comfortably in no acute distress Head: Normocephalic and atraumatic Eyes: Normal inspection, extraocular muscles intact Ear, nose, throat: Normal external exam Neck: Normal range of motion Respiratory: lungs clear to auscultation bilaterally Cardiovascular: Regular rate/rhythm, no murmur GI: Moderately tender in the midepigastrium/left upper quadrant Extremities: nontender, moves all extremities Neuro: The patient awake and alert, appropriately conversive, no focal deficits, symmetric faces Skin: Warm, dry, and intact MEDICAL DECISION MAKING: This is a 67-year-old male presenting for midepigastric/left upper quadrant/rib pain. Patient does not have pain on the lateral rib cage, is more left upper quadrant, palpation. Lab work and CT imaging ordered at triage. I will add on troponin and EKG to rule out ACS. Otherwise consider SBO, cholecystitis, pancreatitis -ECG independently interpreted by me with normal sinus rhythm, rate of 96, left axis deviation, normal MS, normal QRS, normal QTc, no ST segment elevations consistent with STEMI criteria -Chest Xray independently interpreted by me showing no pneumothorax, focal opacity, or pleural effusions. -CT ab/pelvis reveals liquid stool in mild enteritis otherwise no distinct abnormalities. Patient made aware of his hepatosteatosis and hernias. -Patient's blood work actually does reveal possible pancreatitis, early with a lipase that is 3 times greater than normal limits at 285. Otherwise there is no LFT elevation, negative troponin or other abnormalities on blood work. -Attempted to give IV medication as well as Zofran, patient does note some improvement pain but still there. Will admit for further pancreatitis workup/treatment. Differential diagnosis: See above ER treatment provided: See below Diagnostics interpreted by me: ECG: See above Cardiac Monitoring: An order was placed for continuous cardiac monitoring. The monitor shows a rate of 70 with sinus rhythm. Laboratory studies: As stated above and show below. Imaging studies: See below. Past Med/Surg History Medical History Prediabetes History of COVID-19 Anxiety Hyperlipidemia Hypertension 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 Surgical History History of cystoscopy History of tooth extraction History of bilateral cataract extraction Status post left rotator cuff repair History of tonsillectomy History of shoulder surgery History of needle biopsy Family History Father Hypertension Other Heart disease Leukemia No family history of adverse response to anesthesia Social History Smoking Status: Current every day smoker Tobacco Type: Smokeless Tobacco (Dip or Chew) Second Hand Exposure: No; Do You Dip or Chew Tobacco: Yes (ADVISED); Hx Alcohol Use: Yes Hx Substance Use: No Preferred Language: Yoruba Communication Ability: Effective Director Business Intelligence Required: No Beliefs That Will Affect Care: None marital status: Current Living Situation: Spouse and Family Current Living Situation Comment: Lives with , daughter, 3 grandkids, son current occupational status: employed current occupation: [employer] Feels Safe at Home: Yes Assistive Devices: None Allergies Allergies Allergy/AdvReac Type Severity Reaction Status Date / Time bee venom protein (honey bee) Allergy Intermediate ITCHING Verified 06/14/23 21:15 AND BODY SWELLING Home Meds Home Medications Medication Instructions Recorded Confirmed amlodipine 10 mg tablet 5 mg PO QAM 01/17/21 06/14/23 hydrochlorothiazide 25 mg tablet 25 mg PO QAM 01/17/21 06/14/23 lisinopril 40 mg tablet 40 mg PO QAM 07/16/21 06/14/23 fluoxetine 20 mg capsule (Prozac) 20 mg PO QAM 08/16/22 06/14/23 diclofenac sodium 75 mg 75 mg PO QAM 09/08/22 06/14/23 tablet,delayed release fluticasone propionate 50 2 spray intranasal DAILY PRN 06/14/23 06/14/23 mcg/actuation nasal Congestion spray,suspension rosuvastatin 5 mg tablet 5 mg PO DAILY 06/14/23 06/14/23 Previous Rx's Medication Instructions Recorded albuterol sulfate 90 mcg/actuation 2 inh inhalation Q4H PRN shortness 02/07/22 aerosol inhaler (Ventolin HFA) of breath or wheezing #6.7 grams Results & Data (ED) Vital Signs Vital Signs - 24 hr 06/14/23 17:41 06/14/23 17:41 06/14/23 20:26 Temperature 36.6 C Temperature Source Temporal Artery Scan Pulse Rate 100 H 91 H Pulse Rate [Apical] Respiratory Rate 16 16 Blood Pressure 144/92 H Blood Pressure Mean 109 Pulse Oximetry 94 Oxygen Delivery Method Sepsis Recent Fever Within 48 Hours No Sepsis New/Unexplained Change in Mental Status N/A Sepsis Action Taken by Nursing No Action Required 06/14/23 22:00 Temperature Temperature Source Pulse Rate Pulse Rate [Apical] 85 Respiratory Rate 13 Blood Pressure Blood Pressure Mean Pulse Oximetry 98 Oxygen Delivery Method Room Air Sepsis Recent Fever Within 48 Hours Sepsis New/Unexplained Change in Mental Status Sepsis Action Taken by Nursing Laboratory Data 06/14/23 18:16 06/14/23 18:16 Lab Results 06/14/23 06/14/23 Range/Units 18:10 18:16 WBC 10.41 (4.8-10.8) K/ul RBC 5.77 (4.70-6.10) M/uL Hgb 16.3 (14.0-18.0) g/dl Hct 48.5 (42.0-52.0) % MCV 84.1 (80.0-100.0) fL MCH 28.2 (25.0-34.0) pg MCHC 33.6 (32.0-36.0) g/dL RDW Std Deviation 39.2 (36.4-46.3) fL RDW Coeff of [place] 12.8 (11.5-14.5) % Plt Count 302 (130-400) K/uL MPV 9.6 (9.4-12.4) fL Immature Gran % (Auto) 0.3 % Neut % (Auto) 84.8 % Lymph % (Auto) 8.5 % Stephens % (Auto) 5.8 % Eos % (Auto) 0.4 % Baso % (Auto) 0.2 % Neut # (Auto) 8.84 H (1.40-6.50) K/uL Lymph # (Auto) 0.88 L (1.20-3.40) K/uL Stephens # (Auto) 0.60 H (0.11-0.59) K/uL Eos # (Auto) 0.04 (0.00-0.50) K/uL Baso # (Auto) 0.02 (0.00-0.20) K/uL Immature Gran # (Auto) 0.03 (0.01-0.20) K/uL Sodium 139 (136-145) mmol/L Potassium 4.1 (3.5-5.1) mmol/L Chloride 101 (98-107) mmol/L Carbon Dioxide 28 (21-32) mmol/L Anion Gap 10 (3-11) BUN 19 (6-23) mg/dl Creatinine 1.14 (0.6-1.4) mg/dl Est Cr Clr Drug Dosing 86.0 ml/min Est GFR ( Amer) 77.8 ml/min Est GFR (Non-Af Amer) 67.1 ml/min BUN/Creatinine Ratio 16.7 (10-20) Glucose 100 H (70-99(Fasting)) mg/dl Calcium 9.5 (8.6-10.3) mg/dl Total Bilirubin 0.4 (0.2-1.0) mg/dl AST 17 (13-39) U/L ALT 22 (7-52) U/L Alkaline Phosphatase 73 (34-104) U/L Troponin I High Sens 5.2 (0-20) pg/ml Total Protein 7.5 (6.0-8.3) gm/dl Albumin 4.7 (3.4-5.0) gm/dl Globulin 2.8 (2.5-4.0) gm/dl Albumin/Globulin Ratio 1.7 (0.9-2) Lipase 285 H (11-82) U/L SARS-CoV-2 (PCR) NEGATIVE (Negative) Influenza Type A (PCR) Negative (Neg) Influenza Type B (PCR) Negative (Neg) RSV (RT-PCR) Negative (Neg) Administered Medications Discontinued Medications Ioversol (Optiray 320 500ml) 82 ml IV ONCE ONE Stop: 06/14/23 19:00 Last Admin: 06/14/23 19:01 Dose: 82 ml Documented By: RADHA Imaging Data Radiologist's Impression: Abdomen/Pelvis CT 06/14/23 18:09 Exam(s): CT ABDOMEN + PELVIS With Contrast IV Amt: 82 ml optiray 320 EXAM: CT Abdomen and Pelvis With Intravenous Contrast CLINICAL HISTORY: Reason for exam: LUQ pain, vomiting. TECHNIQUE: Axial computed tomography images of the abdomen and pelvis with intravenous contrast. CTDI is 28.14 mGy and DLP is 1408.89 mGy-cm. Automated exposure control was utilized for the study. A dose lowering technique was utilized adhering to the principles of ALARA. CONTRAST: Patient received 82 ml optiray 320 of IV contrast COMPARISON: No relevant prior studies available. FINDINGS: Lung bases: Calcified granuloma at the RIGHT lung base. No consolidation. ABDOMEN: Liver: Hepatic steatosis. Gallbladder and bile ducts: Unremarkable. No calcified stones. No ductal dilation. Pancreas: Unremarkable. No mass. No ductal dilation. Spleen: Calcified splenic granulomas. Adrenals: Unremarkable. No mass. Kidneys and ureters: Unremarkable. No hydronephrosis or delayed nephrogram. Stomach and bowel: Mild liquid stool in the colon, correlate for diarrheal disease. Wall thickening of small bowel, concerning for mild enteritis. No obstruction. PELVIS: Appendix: No findings to suggest acute appendicitis. Bladder: Decompressed urinary bladder. Reproductive: Unremarkable as visualized. ABDOMEN and PELVIS: Intraperitoneal space: Unremarkable. No free air. No significant fluid collection. Bones/joints: No acute fracture. No dislocation. Soft tissues: Small fat-containing bilateral inguinal hernias. Vasculature: Unremarkable. No abdominal aortic aneurysm. Lymph nodes: Unremarkable. No enlarged lymph nodes. IMPRESSION: 1. Mild liquid stool in the colon, correlate for diarrheal disease. Wall thickening of small bowel, concerning for mild enteritis. 2. Hepatic steatosis. 3. Small fat-containing bilateral inguinal hernias. Electronically signed by: James Kemp MD 06/14/23 19:52 PM Chest X-Ray 06/14/23 18:10 XR chest 1V not portable HISTORY: 67 years-old Male left flank pain acute left-sided chest pain COMPARISON: 08/16/2022 TECHNIQUE: PA view of the chest FINDINGS: Cardiomediastinal and hilar silhouettes are within normal limits. No pneumothorax, pleural effusion or airspace consolidation. Bones of the chest appear grossly intact. No acute displaced rib fracture identified. IMPRESSION: No acute process. ACT 112: Negative or not required by law. The above report was generated using voice recognition software. It may contain grammatical, syntax or spelling errors. Electronically signed by: Yayo Kaplan M.D. 06/14/2023 7:04 PM Discharge Plan Visit Data Chief Complaint: Rib Injury/Pain Stated Complaint: PAIN BEHIND LT RIBS, VOMITING, DIARRHEA ED Provider: Andrei Gregg Discharge Problem: Acute pancreatitis Forms Stand Alone Forms: [facility] Prescriptions Prescriptions: No Action hydrochlorothiazide 25 mg tablet 25 mg PO QAM amlodipine 10 mg tablet 5 mg PO QAM albuterol sulfate [Ventolin HFA] 90 mcg/actuation HFA aerosol inhaler 2 inh inhalation Q4H PRN (Reason: shortness of breath or wheezing) Qty: 6.7 1RF Rx Instructions: 2 puffs every 4-6 hrs as needed for wheezing diclofenac sodium 75 mg Tablet,Delayed Release (Dr/Ec) 75 mg PO QAM lisinopril 40 mg Tablet 40 mg PO QAM fluoxetine [Prozac] 20 mg capsule 20 mg PO QAM fluticasone propionate [Flonase] 50 mcg/actuation [place],Suspension 2 spray INTRANASAL DAILY PRN (Reason: Congestion) Rx Instructions: administer into each nostril rosuvastatin 5 mg tablet 5 mg PO DAILY Referrals Referrals: Henrique Sommer MD [Primary Care Provider] -
[2023-06-14] MEDS: ONDANSETRON INJ 2 MG/ML 2 ML VIAL IV STA (23:56)
[2023-06-14] MEDS: HYDROmorphone INJ 0.5 MG/0.5 ML SYR IV STA (23:56)
--- NOTE | 2023-06-15 04:11 | History & Physical Report ---
Date of Service June 15, 2023 Assessment & Plan (1) Abdominal pain: Plan: 67-year-old male with past medical history significant for hyperlipidemia, prediabetes, hypertension, statin intolerance, depression comes because of abdominal pain ,nausea vomiting and diarrhea. Patient states this Morning when he woke up he had a lot of cough after that he started to have severe pain left lower rib cage. Also had nausea and couple of episodes of vomiting and couple of episodes of diarrhea. In the ER after pain medications and nausea medication symptoms improved. He still has some tenderness in left lower rib cage. Denies any fevers. No other chest pain. No headache. No some runny nose. No sore throat. Has some cough. Micturating okay. Ambulates okay. Currently resting comfortably and hemodynamically stable. Abdominal pain Nausea vomiting and diarrhea CT scan showing mild enteritis Lipase 285 Possible mild gastroenteritis versus mild pancreatitis Lipase elevation could be nonspecific Will keep patient n.p.o., aggressive IV fluids, IV antiemetics. IV Dilaudid as needed GI consulted in a.m. for further recommendations Prediabetes Will for HbA1c levels Hypertension Continue amlodipine, lisinopril Will hold hydrochlorothiazide for now IV hydralazine as needed Hyperlipidemia On statin Depression Prozac DVT prophylaxis Lovenox Disposition Observation medical floor Full code. History of Present Illness Chief Complaint: Abdominal pain nausea and vomiting and diarrhea Primary Care Provider: Henrique Sommer MD 67-year-old male with past medical history significant for hyperlipidemia, prediabetes, hypertension, statin intolerance, depression comes because of abdominal pain ,nausea vomiting and diarrhea. Patient states this Morning when he woke up he had a lot of cough after that he started to have severe pain left lower rib cage. Also had nausea and couple of episodes of vomiting and couple of episodes of diarrhea. In the ER after pain medications and nausea medication symptoms improved. He still has some tenderness in left lower rib cage. Denies any fevers. No other chest pain. No headache. No some runny nose. No sore throat. Has some cough. Micturating okay. Ambulates okay. Currently resting comfortably and hemodynamically stable. Past miscarriage as mentioned above Past surgical history. Tonsillectomy. Cataracts Social history. . Snuff tobacco. She is currently not drinking alcohol. Last drink was Neeraj time as per patient. No drug use. Family history. Father had CABG. Mother had hypertension. Maternal grandmother had diabetes. Maternal grandfather had heart disorder. Allergies Allergy/AdvReac Type Severity Reaction Status Date / Time bee venom protein (honey bee) Allergy Intermediate ITCHING Verified 06/14/23 21:15 AND BODY SWELLING Home Medications Medication Instructions Recorded Confirmed Type amlodipine 10 mg tablet 5 mg PO QAM 01/17/21 06/14/23 History hydrochlorothiazide 25 mg tablet 25 mg PO QAM 01/17/21 06/14/23 History lisinopril 40 mg tablet 40 mg PO QAM 07/16/21 06/14/23 History albuterol sulfate 90 mcg/actuation 2 inh inhalation Q4H PRN shortness 02/07/22 06/14/23 Rx aerosol inhaler (Ventolin HFA) of breath or wheezing #6.7 grams fluoxetine 20 mg capsule (Prozac) 20 mg PO QAM 08/16/22 06/14/23 History diclofenac sodium 75 mg 75 mg PO QAM 09/08/22 06/14/23 History tablet,delayed release fluticasone propionate 50 2 spray intranasal DAILY PRN 06/14/23 06/14/23 History mcg/actuation nasal Congestion spray,suspension rosuvastatin 5 mg tablet 5 mg PO DAILY 06/14/23 06/14/23 History Past Med/Surg History Medical History Prediabetes History of COVID-19 Anxiety Hyperlipidemia Hypertension 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 Surgical History History of cystoscopy History of tooth extraction History of bilateral cataract extraction Status post left rotator cuff repair History of tonsillectomy History of shoulder surgery History of needle biopsy Family History Father Hypertension Other Heart disease Leukemia No family history of adverse response to anesthesia Social History Smoking Status: Never smoker Tobacco Type: Smokeless Tobacco (Dip or Chew) Second Hand Exposure: No; Do You Dip or Chew Tobacco: Yes; Hx Alcohol Use: No Hx Substance Use: No Preferred Language: Korean Communication Ability: Effective Full Time Paramedic Required: No Beliefs That Will Affect Care: None marital status: Current Living Situation: Spouse and Family Current Living Situation Comment: Lives with , daughter, 3 grandkids, son current occupational status: employed current occupation: [employer] Feels Safe at Home: Yes Safety Concerns: Feels Safe At This Time Assistive Devices: Denture - Upper, Denture - Lower and Glasses Review of Systems Review of Systems: All systems reviewed & are unremarkable except as noted in HPI & below Physical Exam Physical Exam: General- Not in distress Head- atraumatic Eyes- PERRL. ENT- oropharynx clear Neck- supple, no JVD. Lungs- clear to auscultation no wheezing or crackles Heart- regular rhythm; no murmur, no gallop Abdomen- normal bowel sounds, soft, left lower ribs mild tenderness no distension Extremities- no pretibial edema, no erythema seen. Neuro- alert, oriented x 3; PERRL, no facial palsy; no dysarthria; moves extremities. Skin- warm & dry Results & Data Results & Data Vital Signs (Past 12 Hours) Vital Signs Temp Pulse Pulse Resp BP BP Pulse Ox 06/15/23 02:59 82 18 156/92 H 99 06/14/23 22:00 85 13 98 06/14/23 20:26 91 H 06/14/23 17:41 16 06/14/23 17:41 36.6 C 100 H 16 144/92 H 94 O2 Del Method 06/15/23 02:59 Room Air 06/14/23 22:00 Room Air 06/14/23 20:26 06/14/23 17:41 06/14/23 17:41 Diagnostic Findings Laboratory Results WBC 10.41 K/ul (4.8-10.8) 06/14/23 18:16 RBC 5.77 M/uL (4.70-6.10) 06/14/23 18:16 Hgb 16.3 g/dl (14.0-18.0) 06/14/23 18:16 Hct 48.5 % (42.0-52.0) 06/14/23 18:16 MCV 84.1 fL (80.0-100.0) 06/14/23 18:16 MCH 28.2 pg (25.0-34.0) 06/14/23 18:16 MCHC 33.6 g/dL (32.0-36.0) 06/14/23 18:16 RDW Std Deviation 39.2 fL (36.4-46.3) 06/14/23 18:16 RDW Coeff of Farooq 12.8 % (11.5-14.5) 06/14/23 18:16 Plt Count 302 K/uL (130-400) 06/14/23 18:16 MPV 9.6 fL (9.4-12.4) 06/14/23 18:16 Immature Gran % (Auto) 0.3 % 06/14/23 18:16 Neut % (Auto) 84.8 % 06/14/23 18:16 Lymph % (Auto) 8.5 % 06/14/23 18:16 Sweet [place] % (Auto) 5.8 % 06/14/23 18:16 Eos % (Auto) 0.4 % 06/14/23 18:16 Baso % (Auto) 0.2 % 06/14/23 18:16 Neut # (Auto) 8.84 K/uL (1.40-6.50) H 06/14/23 18:16 Lymph # (Auto) 0.88 K/uL (1.20-3.40) L 06/14/23 18:16 Sweet [place] # (Auto) 0.60 K/uL (0.11-0.59) H 06/14/23 18:16 Eos # (Auto) 0.04 K/uL (0.00-0.50) 06/14/23 18:16 Baso # (Auto) 0.02 K/uL (0.00-0.20) 06/14/23 18:16 Immature Gran # (Auto) 0.03 K/uL (0.01-0.20) 06/14/23 18:16 Sodium 139 mmol/L (136-145) 06/14/23 18:16 Potassium 4.1 mmol/L (3.5-5.1) 06/14/23 18:16 Chloride 101 mmol/L (98-107) 06/14/23 18:16 Carbon Dioxide 28 mmol/L (21-32) 06/14/23 18:16 Anion Gap 10 (3-11) 06/14/23 18:16 BUN 19 mg/dl (6-23) 06/14/23 18:16 Creatinine 1.14 mg/dl (0.6-1.4) 06/14/23 18:16 Est Cr Clr Drug Dosing 86.0 ml/min 06/14/23 18:16 Est GFR ( Amer) 77.8 ml/min 06/14/23 18:16 Est GFR (Non-Af Amer) 67.1 ml/min 06/14/23 18:16 BUN/Creatinine Ratio 16.7 (10-20) 06/14/23 18:16 Glucose 100 mg/dl (70-99(Fasting)) H 06/14/23 18:16 Calcium 9.5 mg/dl (8.6-10.3) 06/14/23 18:16 Total Bilirubin 0.4 mg/dl (0.2-1.0) 06/14/23 18:16 AST 17 U/L (13-39) 06/14/23 18:16 ALT 22 U/L (7-52) 06/14/23 18:16 Alkaline Phosphatase 73 U/L (34-104) 06/14/23 18:16 Troponin I High Sens 5.2 pg/ml (0-20) 06/14/23 18:16 Total Protein 7.5 gm/dl (6.0-8.3) 06/14/23 18:16 Albumin 4.7 gm/dl (3.4-5.0) 06/14/23 18:16 Globulin 2.8 gm/dl (2.5-4.0) 06/14/23 18:16 Albumin/Globulin Ratio 1.7 (0.9-2) 06/14/23 18:16 Lipase 285 U/L (11-82) H 06/14/23 18:16 SARS-CoV-2 (PCR) NEGATIVE (Negative) 06/14/23 18:10 Influenza Type A (PCR) Negative (Neg) 06/14/23 18:10 Influenza Type B (PCR) Negative (Neg) 06/14/23 18:10 RSV (RT-PCR) Negative (Neg) 06/14/23 18:10 Impressions Abdomen/Pelvis CT 06/14/23 18:09 Exam(s): CT ABDOMEN + PELVIS With Contrast IV Amt: 82 ml optiray 320 EXAM: CT Abdomen and Pelvis With Intravenous Contrast CLINICAL HISTORY: Reason for exam: LUQ pain, vomiting. TECHNIQUE: Axial computed tomography images of the abdomen and pelvis with intravenous contrast. CTDI is 28.14 mGy and DLP is 1408.89 mGy-cm. Automated exposure control was utilized for the study. A dose lowering technique was utilized adhering to the principles of ALARA. CONTRAST: Patient received 82 ml optiray 320 of IV contrast COMPARISON: No relevant prior studies available. FINDINGS: Lung bases: Calcified granuloma at the RIGHT lung base. No consolidation. ABDOMEN: Liver: Hepatic steatosis. Gallbladder and bile ducts: Unremarkable. No calcified stones. No ductal dilation. Pancreas: Unremarkable. No mass. No ductal dilation. Spleen: Calcified splenic granulomas. Adrenals: Unremarkable. No mass. Kidneys and ureters: Unremarkable. No hydronephrosis or delayed nephrogram. Stomach and bowel: Mild liquid stool in the colon, correlate for diarrheal disease. Wall thickening of small bowel, concerning for mild enteritis. No obstruction. PELVIS: Appendix: No findings to suggest acute appendicitis. Bladder: Decompressed urinary bladder. Reproductive: Unremarkable as visualized. ABDOMEN and PELVIS: Intraperitoneal space: Unremarkable. No free air. No significant fluid collection. Bones/joints: No acute fracture. No dislocation. Soft tissues: Small fat-containing bilateral inguinal hernias. Vasculature: Unremarkable. No abdominal aortic aneurysm. Lymph nodes: Unremarkable. No enlarged lymph nodes. IMPRESSION: 1. Mild liquid stool in the colon, correlate for diarrheal disease. Wall thickening of small bowel, concerning for mild enteritis. 2. Hepatic steatosis. 3. Small fat-containing bilateral inguinal hernias. Electronically signed by: James Kemp MD 06/14/23 19:52 PM Chest X-Ray 06/14/23 18:10 XR chest 1V not portable HISTORY: 67 years-old Male left flank pain acute left-sided chest pain COMPARISON: 08/16/2022 TECHNIQUE: PA view of the chest FINDINGS: Cardiomediastinal and hilar silhouettes are within normal limits. No pneumothorax, pleural effusion or airspace consolidation. Bones of the chest appear grossly intact. No acute displaced rib fracture identified. IMPRESSION: No acute process. ACT 112: Negative or not required by law. The above report was generated using voice recognition software. It may contain grammatical, syntax or spelling errors. Electronically signed by: Yayo Kaplan M.D. 06/14/2023 7:04 PM ECG Additional Comments: ECG. Normal sinus rhythm rate of 96. Left axis deviation. Code Status & VTE Plan VTE Prophylaxis Plan VTE Prophylaxis will be ordered: Yes
[2023-06-15] MEDS: LACTATED RINGER'S 1,000 ML IV SCH (04:23)
[2023-06-15] MEDS ORDERED: ONDANSETRON INJ 2 MG/ML 2 ML VIAL IV PRN (05:02)
[2023-06-15] MEDS ORDERED: hydrALAZINE HCL 20 MG/ML VIAL IV PRN (05:02)
[2023-06-15] MEDS ORDERED: ALBUTEROL HFA 8 GM INHALER INH PRN (05:02)
[2023-06-15] MEDS ORDERED: ACETAMINOPHEN 325 MG TAB PO PRN (05:02)
[2023-06-15] MEDS: HYDROmorphone INJ 0.5 MG/0.5 ML SYR IV PRN (05:13)
--- OUTSIDE RECORDS SUMMARY | 2023-06-15 06:44 | External Medical Summary | Summary of Care ---
Author Name Unknown Organization [facility] Address [address] [place] [address] Phone [phone] Care Team Providers Care Seamer Name Role Phone Henrique Sommer MD Primary Care Provider [phone] Reason for Visit * Reason Comments Outpatient Testing Encounter Details Date Type Department Care Team (Late st Contact Info) Description 05/31/2023 9:00 AM EST Laboratory Laboratory, [place] [address] [place] [address] [place] [address], [place] [id number] Hyperlipidemia with target LDL less than 100 Allergies Active Allergy Reactions Criticality Noted Date Comments Bee Pollen 12/25/2020 Bee Venom High 07/16/2021 Other reaction(s): ITCHING AND BODY SWELLING documented as of this encounter (statuses as of 05/31/2023) Medications Medication Sig Dispensed Refills Start Date End Date Status Famotidine 20 MG Oral Tablet (Pepcid)Indications :Dyspepsia Take by mouth 1 Tablet in the morning. 30 Tablet 11 06/13/2021 Active Albuterol Sulfate HFA 108 (90 Base) MCG/ACT Inhalation Aerosol Solution 0 02/07/2022 Active Fluticasone Propionate 50 MCG/ACT Nasal Suspension Administer 2 Sprays into each nostril in the morning. 16 g 1 02/20/2022 Active Tamsulosin HCl 0.4 MG Oral Capsule (Flomax) Take 1 Capsule by mouth in the morning. 0 08/19/2022 Active DULoxetine HCl 30 MG Oral Capsule Delayed Release Particles (Cymbalta) Take 1 Capsule by mouth in the morning. 0 09/26/2021 Active Finasteride 5 MG Oral Tablet (Proscar) Take 1 Tablet by mouth in the morning. 0 08/19/2022 Active amLODIPine Besylate 5 MG Oral Tablet (Norvasc)Indication s:HTN, goal below 130/80 Take 1 Tablet by mouth in the morning. 90 Tablet 3 08/27/2022 Active FLUoxetine HCl 20 MG Oral Capsule (PROzac) TAKE 1 CAPSULE BY MOUTH EVERY MORNING 90 Capsule 2 02/12/2023 Active Rosuvastatin Calcium 5 MG Oral Tablet (Crestor)Indication s:Hyperlipidemia with target LDL less than 100 1 tab 3 times per week x 1 month then 1 tab 5 times per week x 1 month then daily 90 Tablet 1 02/24/2023 Active Diclofenac Sodium 75 MG Oral Tablet Delayed Release (Voltaren) Take 1 Tablet by mouth in the morning. 90 Tablet 1 02/27/2023 Active Lisinopril 40 MG Oral TabletIndications:H TN, goal below 130/80 TAKE 1 TABLET BY MOUTH ONCE DAILY 90 Tablet 1 03/23/2023 Active hydroCHLOROthiazide 25 MG Oral Tablet (Hydrodiuril)Indica tions:HTN, goal below 130/80 TAKE 1 TABLET BY MOUTH ONCE DAILY 90 Tablet 3 05/24/2023 Active documented as of this encounter (statuses as of 05/31/2023) Active Problems Problem Noted Date Diagnosed Date Prediabetes 02/23/2022 Overview: Per Prediabetes protocol Major depressive disorder, single episode, mild 02/20/2022 HTN, goal below 130/80 05/30/2021 Hyperlipidemia with target LDL less than 100 Statin intolerance 05/30/2021 documented as of this encounter (statuses as of 05/31/2023) Resolved Problems Problem Noted Date Diagnosed Date Resolved Date NONE 02/20/2022 documented as of this encounter (statuses as of 05/31/2023) Immunizations Name Administration Dates Next Due TDAP (age 10 and older)(Boostrix) 05/30/2021 documented as of this encounter Social History Tobacco Use Types Packs/Day Years Used Date Smoking Tobacco: Never Smokeless Tobacco: Current Snuff Comments:1 can of snuff Alcohol Use Standard Drinks/Week Comments Yes 0 (1 standard drink = 0.6 oz pur e alcohol) 3-4 beers per wk Sex and Gender Information Value Date Recorded Sex Assigned at Not on file Gender Identity Not on file Sexual Orientation Not on file Job Start Date Occupation Industry Not on file Not on file Not on file documented as of this encounter Plan of Treatment Upcoming Encounters Date Type Department Care Team (Late st Contact Info) Description 10/20/2023 6:00 PM EDT Office Visit [facility] [address] [place] [address] Henrique Sommer MD [address] [place] [address] Pending Results Name Type Priority Associated Diagnoses Date /Time LIPID PANEL WITH DIRECT LDL IF TG IS HIGH Lab Routine Hyperlipidemia with target LDL less than 100 05/31/2023 8:20 AM EST AST Lab Routine Hyperlipidemia with target LDL less than 100 05/31/2023 8:20 AM EST ALT Lab Routine Hyperlipidemia with target LDL less than 100 05/31/2023 8:20 AM EST Health Maintenance Due Date Last Done Comments Depression Screening 1969 HIV Screening 1972 Hepatitis C Screening 07/06/1975 Cologuard 2002 Colonoscopy 2002 Colorectal Cancer Screening 2002 Fecal Occult Blood Test 2002 Sigmoidoscopy 2002 Hepatitis B (2 of 3 - 19+ 3-dose series) 04/29/2004 04/01/2004 Zoster Vaccines (1 of 2) 07/06/2007 Pneumococcal Vaccine: 65+ Years (1 of 1 - PCV) 2022 COVID-19 Vaccine ( - 2022- season) 2022 Influenza Vaccine (FLU shot) (#1) 2022 Albumin/Creatinine Ratio 07/02/2023 07/01/2020 GFR 02/23/2024 02/22/2023, 09/10, 02/25/2021, Additional history exists HbA1c 02/23/2024 02/22/2023, 02/02/2022 Lipid Panel 02/23/2028 02/22/2023, 09/10, 10/21/2020, Additional history exists DTaP,Tdap,and Td Vaccines (2 - Td or Tdap) 05/30/2031 05/30/2021 GARDASIL-HPV IMMUNIZATION SERIES Aged Out No longer eligible based on patient's age to complete this topic MENINGOCOCCAL (MENACTRA/MENVEO) Aged Out No longer eligible based on patient's age to complete this topic documented as of this encounter Medical Devices Implanted Type Area Animal Ride Manager Device Identifier Shelf Expiration Date Model / Serial / Lot Lens Intraoc 23.5 - [id number] - [id number] Implanted:Qty: 1 on 06/13/2020 by Yong Soriano MD at [place] [facility] Left: Eye [employer] 05/12/2024 [id number] / [id number] / [id number] Lens Intraoc 24.0 - [id number] - [id number] Implanted:Qty: 1 on 06/27/2020 by Yong Soriano MD at [place] [facility] Right: Eye [employer] 03/11/2024 [id number] / [id number] / [id number] documented as of this encounter Visit Diagnoses Diagnosis Hyperlipidemia with target LDL less than 100 Other and unspecified hyperlipidemia documented in this encounter Care Teams Seamer Relationship Specialty Start Date End Date Henrique Sommer MD [address] [place] [address] PCP - General Family Medicine 02/24/21 documented as of this encounter
--- OUTSIDE RECORDS SUMMARY | 2023-06-15 06:44 | External Medical Summary ---
Author Name Unknown Address Unknown Organization [id number]:[facility] [place] [address] [facility] [place] [address] Laboratory Report Ordering Provider Test Date Status ANGI ANTONIO 05/31/2023 08:20:45 Final Observation Date Value Abnormality Reference (Units ) Status Triglyceride 05/31/2023 08:20:45 154 <=174 ( mg/dL) Final Triglyceride Reference Range s (mg/dL):
<150 Acceptable
150-174 Borderline high
175-499 High
>=500 Very high Cholesterol 05/31/2023 08:20:45 217 Above high normal <200 (mg/dL) Final Total Cholesterol Reference Ranges (mg/dL):
<200 Desirable
200-239 Borderline high
>=240 High HDL 05/31/2023 08:20:45 61 >39 (mg/dL ) Final HDL Cholesterol Reference Ra nges (mg/dL):
>=60 High (Desirable)
<50 Low (Undesirable) For Females
<40 Low (Undesirable) For Males NON-HDL CHOLESTEROL 05/31/2023 08:20:45 156 <=159 (mg/dL) Final Non-HDL Cholesterol Referenc e Range (mg/dL):
<100 Target level for high risk ASCVD patient
<130 Optimal for general population
130-159 Near optimal for general population
160-189 Borderline High
190-219 High
>=220 Very High LDL, (calculated) 05/31/2023 08:20:45 125 <= 129 (mg/dL) Final LDL Cholesterol Reference Ra nges (mg/dL):
<70 Target level for high risk ASCVD patient
<100 Optimal for general population
100-129 Near optimal for general population
130-159 Borderline high
160-189 High
>=190 Very high Performing Location [facility] [place] [address] [facility] [address]
--- OUTSIDE RECORDS SUMMARY | 2023-06-15 06:44 | External Medical Summary ---
Author Name Unknown Address Unknown Organization [id number][place] [place] [address] [place] [id number] Laboratory Report Ordering Provider Test Date Status ANGI ANTONIO 05/31/2023 08:20:45 Final Observation Date Value Abnormality Reference (Units ) Status AST (Aspartate aminotransferase) 05/31/2023 08:20:45 21 10-50 (U/L) Final Performing Location LABORATORY [facility] - [address] [place] [address]
--- OUTSIDE RECORDS SUMMARY | 2023-06-15 06:44 | External Medical Summary ---
Author Name Unknown Address Unknown Organization [id number]:[facility] [place] - [address] [place] [address] Laboratory Report Ordering Provider Test Date Status ANGI ANTONIO 05/31/2023 08:20:45 Final Observation Date Value Abnormality Reference (Units ) Status ALT (Alanine aminotransferase) 05/31/2023 08:20:45 31 10-50 (U/L) Final Performing Location LABORATORY [facility] - [address] [place] [address]
--- OUTSIDE RECORDS SUMMARY | 2023-06-15 06:45 | External Medical Summary ---
Author Name Unknown Address Unknown Organization [id number]:[facility] [place] [facility] [address] [facility] [address] Laboratory Report Ordering Provider Test Date Status MARIOLA BAKER 02/22/2023 08:05:21 Final Observation Date Value Abnormality Reference (Units ) Status WBC, Total 02/22/2023 08:05:21 8.63 4.00-10.80 (K/uL) Final RBC 02/22/2023 08:05:21 5.41 4.50-5.25 (M/uL) Final Hemoglobin 02/22/2023 08:05:21 15.7 14.0-16.8 (g/dL) Final HCT 02/22/2023 08:05:21 49.7 Above high normal 40.0-48.4 (%) Final MCV 02/22/2023 08:05:21 91.9 82.0-99.5 (fL) Final MCH 02/22/2023 08:05:21 29.0 27.0-34.0 (pg) Final MCHC 02/22/2023 08:05:21 31.6 32.0-36.0 (g/dL) Final RDW 02/22/2023 08:05:21 13.7 11.5-15.5 (%) Final Platelets 02/22/2023 08:05:21 315 140-400 (K/uL) Final MPV 02/22/2023 08:05:21 10.5 6.6-11.1 (fL) Final Nucleated erythrocytes/100 leukocytes [Ratio] in Blood by Automated count 02/22/2023 08:05:21 0 <=0 (/100 WBCs) Final Performing Location [facility] [place] [address] [facility] [address]
--- OUTSIDE RECORDS SUMMARY | 2023-06-15 06:45 | External Medical Summary | Summary of Care ---
Author Name Unknown Organization [facility] Address [address] [place] [address] Phone [phone] Care Team Providers Care Distribution Coordinator Name Role Phone Henrique Sommer MD Primary Care Provider [phone] Reason for Referral * Ancillary Services (Within 30 days (routine)) - Authorized Specialty Diagnoses / Procedures Referred By Jose knight Referred To Contact Audiology Diagnoses Tinnitus of left ear Henrique Sommer MD [address] [place] [address] Referral ID Status Reason Start Date Expiration Date Visits Requested Visits Authorized [id number] Authorized Ancillary Services Required 04/14/2023 999 [id number] Question Answer Referral Priority Within 30 days (routine) Where should this appointment be scheduled? [facility] Reason for Referral: Tinnitus * Evaluate & Treat - Unlimited Visits (Within 30 days (routine)) - Authorized Specialty Diagnoses / Procedures Referred By Jose knight Referred To Contact Orthopaedic Surgery / Orthopedics Diagnoses Pain of both shoulder joints Henrique Sommer MD [address] [place] [address] Referral ID Status Reason Start Date Expiration Date Visits Requested Visits Authorized [id number] Authorized Specialty Services Required 04/14/2023 999 999 Question Answer Referral Priority Within 30 days (routine) Where should this appointment be scheduled? [facility] What body part is the patient being seen for? Shoulder What condition is the patient being seen for? Arthritis including related infection * Evaluate & Treat - Unlimited Visits (Within 30 days (routine)) - Authorized Specialty Diagnoses / Procedures Referred By Contac t Referred To Contact Urology Diagnoses Uropathy, obstructive Henirque Sommer MD [address] [place] [address] Jhony Herrera II, DO [address] [place] [address] [address] [place] [address] Referral ID Status Reason Start Date Expiration Date Visits Requested Visits Authorized [id number] Authorized Specialty Services Required 04/14/2023 999 999 Question Answer Referral Priority Within 30 days (routine) Where should this appointment be scheduled? [facility] What is the patient being referred for? Other conditions Comments Obstructive uropathy Reason for Visit * Reason Comments Follow Up 6 month return Encounter Details Date Type Department Care Team (Late st Contact Info) Description 04/14/2023 6:20 PM EST Office Visit Formerly [facility] [address] [place] [id number] Henrique Sommer MD [address] [place] [address] Pain of both shoulder joints*; HTN, goal below 130/80; Hyperlipidemia with target LDL less than 100; Prediabetes; Uropathy, obstructive; Tinnitus of left ear Allergies Active Allergy Reactions Criticality Noted Date Comments Bee Pollen 12/25/2020 Bee Venom High 07/16/2021 Other reaction(s): ITCHING AND BODY SWELLING documented as of this encounter (statuses as of 04/14/2023) Medications Medication Sig Dispensed Refills Start Date [...] the morning. 90 Tablet 1 02/27/2023 Active hydroCHLOROthiazide 25 MG Oral Tablet (Hydrodiuril)Indica tions:HTN, goal below 130/80 TAKE 1 TABLET BY MOUTH ONCE DAILY 90 Tablet 0 03/03/2023 Active Lisinopril 40 MG Oral TabletIndications:H TN, goal below 130/80 TAKE 1 TABLET BY MOUTH ONCE DAILY 90 Tablet 1 03/23/2023 Active documented as of this encounter (statuses as of 04/14/2023) Active Problems Problem Noted Date Diagnosed Date Prediabetes 02/23/2022 Overview: Per Prediabetes protocol Major depressive disorder, single episode, mild 02/20/2022 HTN, goal below 130/80 05/30/2021 Hyperlipidemia with target LDL less than 100 Statin intolerance 05/30/2021 documented as of this encounter (statuses as of 04/14/2023) Resolved Problems Problem Noted Date Diagnosed Date Resolved Date NONE 02/20/2022 documented as of this encounter (statuses as of 04/14/2023) Immunizations Name Administration Dates Next Due TDAP (age 10 and older)(Boostrix) 05/30/2021 documented as of this encounter Social History Tobacco Use Types Packs/Day Years Used Date Smoking Tobacco: Never Smokeless Tobacco: Current Snuff Tobacco Cessation:Ready to Q uit: Not Asked; Counseling Given: Not Answered Comments:1 can of snuff Alcohol Use Standard [...] on file documented as of this encounter Last Filed Vital Signs Vital Sign Reading Time Taken Comments Blood Pressure 116/78 04/14/2023 5:57 PM EST Pulse 86 04/14/2023 5:57 PM EST Temperature 36.2 C (97.1 F) 04/14/2023 5:57 PM ES T Respiratory Rate 16 04/14/2023 5:57 PM EST Oxygen Saturation 96% 04/14/2023 5:57 PM EST Inhaled Oxygen Concentration - - Weight 121.6 kg (268 lb) 04/14/2023 5:57 PM EST Height 180.3 cm (5' 11") 04/14/2023 5:57 PM EST Body Mass Index 37.38 04/14/2023 5:57 PM EST documented in this encounter Progress Notes * Henrique Sommer MD - 04/14/2023 6:45 PM EST Subjective: Morales Hoff is a 67 year old male. Chief Complaint Patient presents with Follow Up 6 month return Six-month return visit for this 67-year-old with known history hypertension hyperlipidemia and pre diabetes as well as depression. He previously had tried statin medications but I had recently started him on Crestor 5 mg but he worked up to Um 1 daily 7 days a week over a 7 week course. Now is taking every day i.e. 7 days a week and has been for the last 2 weeks without any Um side effect. Still bothered with diffuse pain. Not clear how much diclofenac 75 mg daily helps. He again asked about medical marijuana. I did tell him that I can not certify him for medical marijuana but Um it certainly would be easy to have him get it done. The hope would be that he would be able to use medical marijuana instead of the diclofenac. Um in the end sounded like he was not going to pursue the medical marijuana. Has tinnitus in his left ear. It has been this way for long time i.e. years. He knows he has decreased hearing in the left ear as well. Um no evaluation in the past. Patient Active Problem List Diagnosis Code HTN, goal below 130/80 I10 Hyperlipidemia with target LDL less than 100 E78.5 Statin intolerance Z78.9 Major depressive disorder, single episode, mild (HCC) F32.0 Prediabetes R73.03 Current Outpatient Medications Medication Sig Dispense Refill Albuterol Sulfate HFA 108 (90 Base) MCG/ACT Inhalation Aerosol Solution Fluticasone Propionate 50 MCG/ACT Nasal Suspension Administer 2 Sprays into each nostril in the morning. 16 g 1 Tamsulosin HCl 0.4 MG Oral Capsule (Flomax) Take 1 Capsule by mouth in the morning. Finasteride 5 MG Oral Tablet (Proscar) Take 1 Tablet by mouth in the morning. amLODIPine Besylate 5 MG Oral Tablet (Norvasc) Take 1 Tablet by mouth in the morning. 90 Tablet 3 FLUoxetine HCl 20 MG Oral Capsule (PROzac) TAKE 1 CAPSULE BY MOUTH EVERY MORNING 90 Capsule 2 Rosuvastatin Calcium 5 MG Oral Tablet (Crestor) 1 tab 3 times per week x 1 month then 1 tab 5 timesper week x 1 month then daily 90 Tablet 1 Diclofenac Sodium 75 MG Oral Tablet Delayed Release (Voltaren) Take 1 Tablet by mouth in the morning. 90 Tablet 1 hydroCHLOROthiazide 25 MG Oral Tablet (Hydrodiuril) TAKE 1 TABLET BY MOUTH ONCE DAILY 90 Tablet 0 Lisinopril 40 MG Oral Tablet TAKE 1 TABLET BY MOUTH ONCE DAILY 90 Tablet 1 Famotidine 20 MG Oral Tablet (Pepcid) Take by mouth 1 Tablet in the morning. 30 Tablet 11 DULoxetine HCl 30 MG Oral Capsule Delayed Release Particles (Cymbalta) Take 1 Capsule by mouth in the morning. No current facility-administered medications for this visit. Review of patient's allergies indicates: Allergen Reactions Honey Bee Venom Protein [Bee Venom] Other reaction(s): ITCHING AND BODY SWELLING Bee Pollen Objective: BP 116/78 (BP Site: Right Arm, BP Position: Sitting, BP Cuff Size: Regular) | Pulse 86 | Temp 36.2 C (97.1 F) (Temporal Artery) | Resp 16 | Ht 1.803 m (5' 11") | Wt 121.6 kg (268 lb) | SpO2 96% |BMI 37.38 kg/m | BSA 2.47 m Physical Exam: CONST: alert, pleasant, no acute distress HEAD: normocephalic, atraumatic NECK: supple, soft, no adenopathy EARS: canals normal, TMs normal. There was no cerumen in the left canal and tympanic membrane appeared normal NARES: clear Eyes - PERRLA, EOM'I OROPHARYNX: clear, no swelling or erythema, moist CV: regular rate and rhythm, no murmur CHEST: clear to auscultation bilaterally, no rales or wheezing ABD: soft, non tender, non distended, no masses or hepatosplenomegaly EXT: no edema, no joint swelling or deformities, NEURO: AAOx3, no gross focal deficits, cerebellar signs normal, affect appropriate MENTAL STATUS: no evidence of thought disorder, no delusional thought, no evidence of paranoia, thought is non-tangential. SKIN: no rash or significant lesions ASSESSMENT/PLAN: 1. Tinnitus left ear-refer to audiology. If there is a significant difference in hearing between left than the right ears, would then refer to ENT for further medical evaluation. I told him there really isn't anything except for increasing background noise as treatment for tinnitus. 2. Chronic Um arthritic pain including shoulders and knees. Continue diclofenac 75 mg daily. As noted above, we had discussion about medical marijuana. It was not clear whether he was going to pursueit but ultimately had thought he was not going to pursued at this time 3. Hyperlipidemia-tolerating Crestor 5 mg daily. In a month and a half he should have lipid profileas well as AST and ALT. Told him that we may increase the Crestor Um to 10 mg a day depending on his lipid profile results. See again 6 months Henrique Sommer MD documented in this encounter Nursing Notes * Bernadine Mehta, [facility] - 04/14/2023 5:57 PM EST Morales Hoff is a 67 year old male who presents today for Chief Complaint Patient presents with Follow Up 6 month return documented in this encounter Plan of Treatment Upcoming Encounters Date Type Department Care Team (Late st Contact Info) Description 10/20/2023 6:00 PM EDT Office Visit [facility] [address] [place] [address] Henrique Sommer MD [address] [place] [address] Scheduled Orders Name Type Priority Associated Diagnoses Orde r Schedule LIPID PANEL WITH DIRECT LDL IF TG IS HIGH Lab Routine Hyperlipidemia with target LDL less than 100 Expected: 04/14/2023, Expires: 04/14/2024 AST Lab Routine Hyperlipidemia with target LDL less than 100 Expected: 04/14/2023 (Approximate), Expires: 04/13/2024 ALT Lab Routine Hyperlipidemia with target LDL less than 100 Expected: 04/14/2023 (Approximate), Expires: 04/13/2024 Scheduled Referrals Name Type Priority Associated Diagnoses Orde r Schedule UROLOGY REFERRAL OP Referral Within 30 da ys (routine) Uropathy, obstructive Ordered: 04/14/2023 ORTHOPAEDICS REFERRAL OP Referral Within 30 days (routine) Pain of both shoulder joints Ordered: 04/14/2023 AUDIOLOGY REFERRAL OP Referral Within 30 days (routine) Tinnitus of left ear Ordered: 04/14/2023 Health Maintenance Due Date Last Done Comments COVID-19 Vaccine (#1) 01/05/1956 Depression Screening 1969 HIV Screening 1972 Hepatitis C Screening 07/06/1975 Cologuard 2002 Colonoscopy 2002 Colorectal Cancer Screening 2002 Fecal Occult Blood Test 2002 Sigmoidoscopy 2002 Hepatitis B (2 of 3 - 19+ 3-dose series) 04/29/2004 04/01/2004 Zoster Vaccines (1 of 2) 07/06/2007 Pneumococcal Vaccine: 65+ Years (1 - PCV) 2022 Influenza Vaccine (FLU shot) (#1) 2022 [...] this encounter Medical Devices Implanted Type Area Mother Helper Device Identifier Shelf Expiration Date Model / Serial / Lot Lens Intraoc 23.5 - [id number] - [id number] Implanted:Qty: 1 on 06/13/2020 by Yong Soriano MD at OR [facility] Left: Eye [employer] 05/12/2024 [id number] / [id number] / [id number] Lens Intraoc 24.0 - [id number] - [id number] Implanted:Qty: 1 on 06/27/2020 by Yong Soriano MD at OR [facility] Right: Eye [employer]OM[employer] 03/11/2024 [id number] / [id number] / [id number] documented as of this encounter Visit Diagnoses Diagnosis Pain of both shoulder joints- Primary HTN, goal below 130/80 Unspecified essential hypertension Hyperlipidemia with target LDL less than 100 Other and unspecified hyperlipidemia Prediabetes Other abnormal glucose Uropathy, obstructive Urinary obstruction, unspecified Tinnitus of left ear Unspecified tinnitus documented in this encounter Care Teams Distribution Coordinator Relationship Specialty Start Date End Date Henrique Sommer MD [address] [place] [address] PCP - General Family Medicine 02/24/21 documented as of this encounter
--- OUTSIDE RECORDS SUMMARY | 2023-06-15 06:45 | External Medical Summary | Summary of Care ---
Author Name Unknown Organization [facility] Address [address] [place] [address] Phone [phone] Care Team Providers Care Roastmaster Name Role Phone Henrique Sommer MD Primary Care Provider [phone] Reason for Visit * Reason Onset Date Comments Health Maintenance 05/07/2023 Encounter Details Date Type Department Care Team (Late st Contact Info) Description 05/07/2023 Telephone [facility] [address] [place] [address] Henrique Sommer MD [address] [place] [address] Health Maintenance Allergies Active Allergy Reactions Criticality Noted Date Comments Bee Pollen 12/25/2020 Bee Venom High 07/16/2021 Other reaction(s): ITCHING AND BODY SWELLING documented as of this encounter (statuses as of 05/07/2023) Medications Medication Sig Dispensed Refills Start Date [...] as of this encounter (statuses as of 05/07/2023) Active Problems Problem Noted Date Diagnosed Date Prediabetes 02/23/2022 Overview: Per Prediabetes protocol Major depressive disorder, single episode, mild 02/20/2022 HTN, goal below 130/80 05/30/2021 Hyperlipidemia with target LDL less than 100 Statin intolerance 05/30/2021 documented as of this encounter (statuses as of 05/07/2023) Resolved Problems Problem Noted Date Diagnosed Date Resolved Date NONE 02/20/2022 documented as of this encounter (statuses as of 05/07/2023) Immunizations Name Administration Dates Next Due TDAP [...] on file documented as of this encounter Miscellaneous Notes * Telephone Encounter - Kera Wayne LPN - 05/07/2023 11:32 AM EST Care Gaps Comprehensive Care Outreach Last Office/Telemedicine Visit: 04/14/2023 (in office), Visit date not found (telemedicine) Next Office Visit: 10/20/2023 Hemoglobin AIC Results: Lab Results Component Value Date/Time HEMOGLOBIN A1C - [facility] 5.7 (H) 02/22/2023 08:05 AM HEMOGLOBIN A1C - [facility] 5.8 (H) 02/02/2022 02:07 PM Reviewed Health Maintenance below: Health Maintenance Topic Date Due COVID-19 Vaccine (1) Never done Depression Screening Never done HIV Screening Never done Hepatitis C Screening Never done Colorectal Cancer Screening Never done Hepatitis B (2 of 3 - 19+ 3-dose series) 04/29/2004 Zoster Vaccines (1 of 2) Never done Pneumococcal Vaccine: 65+ Years (1 - PCV) Never done Influenza Vaccine (FLU shot) (1) Never done Albumin/Creatinine Ratio 07/02/2023 Colon my g Care Gap Outreach Action Taken: Blip[employer] message sent documented in this encounter Plan of Treatment Upcoming Encounters Date Type Department Care Team (Late st Contact Info) Description 10/20/2023 6:00 PM EDT Office Visit [facility] [address] [place] [address] Henrique Sommer MD [address] [place] [address] Health Maintenance Due Date Last Done Comments [...] this encounter Medical Devices Implanted Type Area Wader Boot Top Assembler Device Identifier Shelf Expiration Date Model / Serial / Lot Lens Intraoc 23.5 - [id number] - [id number] Implanted:Qty: 1 on 06/13/2020 by Yong Soriano MD at OR [facility] Left: Eye [employer] 05/12/2024 [id number] / [id number] / [id number] Lens Intraoc 24.0 - [id number] - [id number] Implanted:Qty: 1 on 06/27/2020 by Yong Soriano MD at OR [facility] Right: Eye [employer] 03/11/2024 [id number] / [id number] / [id number] documented as of this encounter Care Teams Roastmaster Relationship Specialty Start Date End Date Henrique Sommer MD [address] [place] [address] PCP - General Family Medicine 02/24/21 documented as of this encounter
--- OUTSIDE RECORDS SUMMARY | 2023-06-15 06:45 | External Medical Summary | Summary of Care ---
Author Name Unknown Organization [facility] Address [address] [place] [address] Phone [phone] Care Team Providers Care Channel Business Manager Name Role Phone Paco Sommer MD Primary Care Provider [phone] Reason for Visit * Reason Comments eRx-Medication Refill Encounter Details Date Type Department Care Team (Late st Contact Info) Description 03/22/2023 Refill [facility] [address] [place] [address] Paco Sommer MD [address] [place] [address] HTN, goal below 130/80 Allergies Active Allergy Reactions Criticality Noted Date Comments Bee Pollen 12/25/2020 Bee Venom High 07/16/2021 Other reaction(s): ITCHING AND BODY SWELLING documented as of this encounter (statuses as of 03/23/2023) Medications Medication Sig Dispensed Refills Start Date End Date Status Famotidine 20 MG Oral Tablet (Pepcid)Indicati ons:Dyspepsia Take by mouth 1 Tablet in the [...] Active amLODIPine Besylate 5 MG Oral Tablet (Norvasc)Indicat ions:HTN, goal below 130/80 Take 1 Tablet by mouth in the morning. 90 Tablet 3 08/27/2022 Active FLUoxetine HCl 20 MG Oral Capsule (PROzac) TAKE 1 CAPSULE BY MOUTH EVERY MORNING 90 Capsule 2 02/12/2023 Active Rosuvastatin Calcium 5 MG Oral Tablet (Crestor)Indicat ions:Hyperlipide fidelia with target LDL less than 100 1 tab 3 times per week x 1 month then 1 tab 5 times per week x 1 month then daily 90 Tablet 1 02/24/2023 Active Diclofenac Sodium 75 MG Oral Tablet Delayed Release (Voltaren) Take 1 Tablet by mouth in the morning. 90 Tablet 1 02/27/2023 Active hydroCHLOROthiaz colten 25 MG Oral Tablet (Hydrodiuril)Ind ications:HTN, goal below 130/80 TAKE 1 TABLET BY MOUTH ONCE DAILY 90 Tablet 0 03/03/2023 Active Lisinopril 40 MG Oral TabletIndication s:HTN, goal below 130/80 TAKE 1 TABLET BY MOUTH ONCE DAILY 90 Tablet 1 03/23/2023 Active Lisinopril 40 MG Oral TabletIndication s:HTN, goal below 130/80 TAKE 1 TABLET BY MOUTH ONCE DAILY 90 Tablet 0 12/31/2022 3 Discontinued documented as of this encounter (statuses as of 03/23/2023) Active Problems Problem Noted Date Diagnosed Date Prediabetes 02/23/2022 Overview: Per Prediabetes protocol Major depressive disorder, single episode, mild 02/20/2022 HTN, goal below 130/80 05/30/2021 Hyperlipidemia with target LDL less than 100 Statin intolerance 05/30/2021 documented as of this encounter (statuses as of 03/23/2023) Resolved Problems Problem Noted Date Diagnosed Date Resolved Date NONE 02/20/2022 documented as of this encounter (statuses as of 03/23/2023) Immunizations Name Administration Dates Next Due TDAP [...] encounter Miscellaneous Notes * Telephone Encounter - Lora Perdue RPh - 03/23/2023 11:22 AM ESTSigned Prescriptions: Disp Refills Lisinopril 40 MG Oral Tablet 90 Tab*1 Sig: TAKE 1 TABLET BY MOUTH ONCE DAILYAuthorizing Provider: PACO SOMMER User: LORA PERDUE documented in this encounter Plan of Treatment Upcoming Encounters Date Type Department Care Team (Late st Contact Info) Description 04/14/2023 6:20 PM EST Office Visit [facility] [address] [place] [address] Paco Sommer MD [address] [place] [address] Health Maintenance Due Date Last Done Comments [...] this encounter Medical Devices Implanted Type Area Fence Post Cutter Device Identifier Shelf Expiration Date Model / Serial / Lot Lens Intraoc 23.5 - [id number] - [id number] Implanted:Qty: 1 on 06/13/2020 by Yong Soriano MD at OR [facility] Left: Eye [employer]OMB 05/12/2024 [id number] / [id number] / [id number] Lens Intraoc 24.0 - [id number] - [id number] Implanted:Qty: 1 on 06/27/2020 by Yong Soriano MD at OR [facility] Right: Eye BAUSCH & LOMB 03/11/2024 [id number] / [id number] / [id number] documented as of this encounter Visit Diagnoses Diagnosis HTN, goal below 130/80 Unspecified essential hypertension documented in this encounter Care Teams Channel Business Manager Relationship Specialty Start Date End Date Paco Sommer MD [address] [place] [address] PCP - General Family Medicine 02/24/21 documented as of this encounter
--- OUTSIDE RECORDS SUMMARY | 2023-06-15 06:45 | External Medical Summary | Summary of Care ---
Author Name Unknown Organization [facility] Address [address] [place] [address] Phone [phone] Care Team Providers Care Glass Forming Crew Member Name Role Phone Paco Sommer MD Primary Care Provider [phone] Reason for Visit * Reason Comments eRx-Medication Refill Encounter Details Date Type Department Care Team (Late st Contact Info) Description 02/11/2023 Refill [facility] [address] [place] [address] Paco Sommer MD [address], [place] [id number] Allergies Active Allergy Reactions Criticality Noted Date Comments Bee Pollen 12/25/2020 Bee Venom High 07/16/2021 Other reaction(s): ITCHING AND BODY SWELLING documented as of this encounter (statuses as of 02/12/2023) Medications Medication Sig Dispensed Refills Start Date End Date Status Famotidine 20 MG Oral Tablet (Pepcid)Indicati ons:Dyspepsia Take by mouth 1 Tablet in the morning. 30 Tablet 11 06/13/2021 Active Albuterol Sulfate HFA 108 (90 Base) MCG/ACT Inhalation Aerosol Solution 0 02/07/2022 Active Fluticasone Propionate 50 MCG/ACT Nasal Suspension Administer 2 Sprays into each nostril in the morning. 16 g 1 02/20/2022 Active Diclofenac Sodium 75 MG Oral Tablet Delayed Release (Voltaren) TAKE ONE TABLET BY MOUTH EVERY MORNING 90 Tablet 1 07/23/2022 Active Tamsulosin HCl 0.4 MG Oral Capsule [...] the morning. 90 Tablet 3 08/27/2022 Active hydroCHLOROthiaz colten 25 MG Oral Tablet (Hydrodiuril)Ind ications:HTN, goal below 130/80 TAKE 1 TABLET BY MOUTH ONCE DAILY 90 Tablet 0 12/01/2022 Active Lisinopril 40 MG Oral TabletIndication s:HTN, goal below 130/80 TAKE 1 TABLET BY MOUTH ONCE DAILY 90 Tablet 0 12/31/2022 Active FLUoxetine HCl 20 MG Oral Capsule (PROzac) TAKE 1 CAPSULE BY MOUTH EVERY MORNING 90 Capsule 2 02/12/2023 Active FLUoxetine HCl 20 MG Oral Capsule (PROzac) TAKE ONE CAPSULE BY MOUTH IN THE MORNING 90 Capsule 1 06/26/2022 3 Discontinued documented as of this encounter (statuses as of 02/12/2023) Active Problems Problem Noted Date Diagnosed Date Prediabetes 02/23/2022 Overview: Per Prediabetes protocol Major depressive disorder, single episode, mild 02/20/2022 HTN, goal below 130/80 05/30/2021 Hyperlipidemia with target LDL less than 100 Statin intolerance 05/30/2021 documented as of this encounter (statuses as of 02/12/2023) Resolved Problems Problem Noted Date Diagnosed Date Resolved Date NONE 02/20/2022 documented as of this encounter (statuses as of 02/12/2023) Immunizations Name Administration Dates Next Due TDAP [...] encounter Miscellaneous Notes * Telephone Encounter - Vipul Hood [facility] - 02/12/2023 6:20 AM EDTSigned Prescriptions: Disp Refills FLUoxetine HCl 20 MG Oral Capsule (PROzac) 90 Cap*2 Sig: TAKE 1CAPSULE BY MOUTH EVERY MORNINGAuthorizing Provider: PACO SOMMER User: VIPUL HOOD documented in this encounter Plan of Treatment Upcoming Encounters Date Type Department Care Team (Late st Contact Info) Description 03/02/2023 7:40 AM EST Office Visit [facility] [address] [place] [address] Paco Sommer MD [address] [place] [address] Health Maintenance Due Date Last Done Comments COVID-19 Vaccine (#1) 01/05/1956 Depression Screening 1969 HIV Screening 1972 Hepatitis C Screening 07/06/1975 Cologuard 2002 Colonoscopy 2002 Colorectal Cancer Screening 2002 Fecal Occult Blood Test 2002 Sigmoidoscopy 2002 Hepatitis B (2 of 3 - 19+ 3-dose series) 04/29/2004 04/01/2004 Zoster Vaccines (1 of 2) 07/06/2007 Pneumococcal Vaccine: 65+ Years (1 - PCV) 2022 GFR 09/23/2022 09/23/2021, 02/10, 01/15/2021, Additional history exists Influenza Vaccine (FLU shot) (#1) 2022 HbA1c 02/02/2023 02/02/2022 Albumin/Creatinine Ratio 07/02/2023 07/01/2020 Lipid Panel 09/23/2026 09/23/2021, 10/10, 03/11/2004, Additional history exists DTaP,Tdap,and Td Vaccines (2 - Td or Tdap) 05/30/2031 05/30/2021 GARDASIL-HPV IMMUNIZATION SERIES Aged Out No longer eligible based on patient's age to complete this topic MENINGOCOCCAL (MENACTRA/MENVEO) Aged Out No longer eligible based on patient's age to complete this topic documented as of this encounter Medical Devices Implanted Type Area Vice Chair Device Identifier Shelf Expiration Date Model / Serial / Lot Lens Intraoc 23.5 - [id number] - [id number] Implanted:Qty: 1 on 06/13/2020 by Yong Soriano MD at OR [facility] Left: Eye [employer] 05/12/2024 [id number] / [id number] / [id number] Lens Intraoc 24.0 - [id number] - [id number] Implanted:Qty: 1 on 06/27/2020 by Yong Soriano MD at OR [facility] Right: Eye [employer]OM[employer] 03/11/2024 [id number] / [id number] / [id number] documented as of this encounter Care Teams Glass Forming Crew Member Relationship Specialty Start Date End Date Paco Sommer MD [address] [place] [address] PCP - General Family Medicine 02/24/21 documented as of this encounter
--- OUTSIDE RECORDS SUMMARY | 2023-06-15 06:45 | External Medical Summary ---
Author Name Unknown Address Unknown Organization [id number]:[facility] [place] - [address] [facility] [address] Laboratory Report Ordering Provider Test Date Status MARIOLA BAKER 02/22/2023 08:05:21 Final Observation Date Value Abnormality Reference (Units ) Status HbA1C 02/22/2023 08:05:21 5.7 Above high normal 4. 0-5.6 (%) Final The use of HbA1c to monitor glycemic status is based on normal hemoglobin and HbA composition. This test should not be used in patients with abnormal hemoglobin that affects the half life of the red blood cell or the in vivo glycation rates. Glucose, estimated average 02/22/2023 08:05:21 117 <126 (mg/dL) Final Performing Location [facility] [place] [facility] [address] [facility] [address]
--- OUTSIDE RECORDS SUMMARY | 2023-06-15 06:45 | External Medical Summary | Summary of Care ---
Author Name Unknown Organization [facility] Address [address] [place] [address] Phone [phone] Care Team Providers Care Spa Technician Name Role Phone Henrique Sommer MD Primary Care Provider [phone] Reason for Visit * Reason Comments Outpatient Testing Encounter Details Date Type Department Care Team (Late st Contact Info) Description 02/22/2023 8:10 AM EST [facility] [address] [place] [address] [facility] [address], [place] [phone] Encounter for long-term (current) use of medications Allergies Active Allergy Reactions Criticality Noted Date Comments Bee Pollen 12/25/2020 Bee Venom High 07/16/2021 Other reaction(s): ITCHING AND BODY SWELLING documented as of this encounter (statuses as of 02/22/2023) Medications Medication Sig Dispensed Refills Start Date [...] the morning. 90 Tablet 3 08/27/2022 Active hydroCHLOROthiazide 25 MG Oral Tablet (Hydrodiuril)Indica tions:HTN, goal below 130/80 TAKE 1 TABLET BY MOUTH ONCE DAILY 90 Tablet 0 12/01/2022 Active Lisinopril 40 MG Oral TabletIndications:H TN, goal below 130/80 TAKE 1 TABLET BY MOUTH ONCE DAILY 90 Tablet 0 12/31/2022 Active FLUoxetine HCl 20 MG Oral Capsule (PROzac) TAKE 1 CAPSULE BY MOUTH EVERY MORNING 90 Capsule 2 02/12/2023 Active documented as of this encounter (statuses as of 02/22/2023) Active Problems Problem Noted Date Diagnosed Date Prediabetes 02/23/2022 Overview: Per Prediabetes protocol Major depressive disorder, single episode, mild 02/20/2022 HTN, goal below 130/80 05/30/2021 Hyperlipidemia with target LDL less than 100 Statin intolerance 05/30/2021 documented as of this encounter (statuses as of 02/22/2023) Resolved Problems Problem Noted Date Diagnosed Date Resolved Date NONE 02/20/2022 documented as of this encounter (statuses as of 02/22/2023) Immunizations Name Administration Dates Next Due TDAP [...] Description 04/14/2023 6:20 PM EST Office Visit [facility] [address] [place] [facility] [place] [id number] Henrique Sommer MD [address] [place] [address] Pending Results Name Type Priority Associated Diagnoses Date /Time COMPREHENSIVE METABOLIC PANEL Lab Routine Encounter for long-term (current) use of medications 02/22/2023 8:05 AM EST CBC Lab Routine Encounter for long-term (current) use of medications 02/22/2023 8:05 AM EST HEMOGLOBIN A1C Lab Routine Encounter for long-term (current) use of medications 02/22/2023 8:05 AM EST LIPID PANEL WITH DIRECT LDL IF TG IS HIGH Lab Routine Encounter for long-term (current) use of medications 02/22/2023 8:05 AM EST Health Maintenance Due Date Last [...] this encounter Medical Devices Implanted Type Area Food Writer Device Identifier Shelf Expiration Date Model / Serial / Lot Lens Intraoc 23.5 - [id number] - [id number] Implanted:Qty: 1 on 06/13/2020 by Yong Soriano MD at OR [facility] Left: Eye [employer]CH [employer]OM[employer] 05/12/2024 [id number] / [id number] / [id number] Lens Intraoc 24.0 - [id number] - [id number] Implanted:Qty: 1 on 06/27/2020 by Yong Soriano MD at OR [facility] Right: Eye [employer]OM[employer] 03/11/2024 [id number] / [id number] / [id number] documented as of this encounter Visit Diagnoses Diagnosis Encounter for long-term (current) use of medications Encounter for long-term (current) use of other medications documented in this encounter Care Teams Spa Technician Relationship Specialty Start Date End Date Henrique Sommer MD [address] [place] [address] PCP - General Family Medicine 02/24/21 documented as of this encounter
--- OUTSIDE RECORDS SUMMARY | 2023-06-15 06:45 | External Medical Summary | Summary of Care ---
Author Name Unknown Organization [facility] Address [address] [place] [address] Phone [phone] Care Team Providers Care Hospitality Director Name Role Phone Henrique Sommer MD Primary Care Provider [phone] Reason for Visit * Reason Onset Date Comments Test Results Lab 02/23/2023 Encounter Details Date Type Department Care Team (Late st Contact Info) Description 02/23/2023 Telephone [facility] [address] [place] [address] Henrique Sommer MD [address] [place] [address] Test Results Lab Allergies Active Allergy Reactions Criticality Noted Date Comments Bee Pollen 12/25/2020 Bee Venom High 07/16/2021 Other reaction(s): ITCHING AND BODY SWELLING documented as of this encounter (statuses as of 02/25/2023) Medications Medication Sig Dispensed Refills Start Date [...] then daily 90 Tablet 1 02/24/2023 Active documented as of this encounter (statuses as of 02/25/2023) Active Problems Problem Noted Date Diagnosed Date Prediabetes 02/23/2022 Overview: Per Prediabetes protocol Major depressive disorder, single episode, mild 02/20/2022 HTN, goal below 130/80 05/30/2021 Hyperlipidemia with target LDL less than 100 Statin intolerance 05/30/2021 documented as of this encounter (statuses as of 02/25/2023) Resolved Problems Problem Noted Date Diagnosed Date Resolved Date NONE 02/20/2022 documented as of this encounter (statuses as of 02/25/2023) Immunizations Name Administration Dates Next Due TDAP [...] encounter Miscellaneous Notes * Telephone Encounter - Ijeoma Blunt LPN - 02/25/2023 9:38 AM EST Patient is aware and verbalizes understanding. Sent MyG message so patient has exact directions. * Telephone Encounter - Luly Cardenas LPN - 02/25/2023 9:31 AM EST left message on machine for pt to call office When pt calls back please advice him of the message below from Dr. Sommer. Thank you * Telephone Encounter - Henrique Sommer MD - 02/24/2023 8:17 PM EST Notify: start Crestor 5mg : 1 tab 3 times per week x 1 month then 1 tab 5 times per week x 1 month then 5mg daily. If tolerated, increase further. He will need to let me know after 2 months. * Telephone Encounter - Irasema Chaudhry LPN - 02/24/2023 1:42 PM EST left message on machine for pt to call office MyG message sent also * Telephone Encounter - Henrique Sommer MD - 02/23/2023 6:14 PM EST Notify: LDL chol is very high at 214. No question now, he should be on a cholesterol lowering med. I know he had problems in past. Is he willing to try again. We would very slowly introduce the statin (Crestor) ? * Telephone Encounter - Alexandria Calvillo [facility] - 02/23/2023 1:58 PM EST Lab results reviewed. Routing to PCP to review prior to contacting pt. Please advise regarding lipid panel. Per 12/24/21 visit (LDL 158 at the time) - "His LDL is elevated but it is less than 160. He is not acandidate for statin nor is AD as he did not tolerate either. I do not think his lipid profile is significant enough to warrant Um referral to cardiology at this time." LDL has increased to 2/14 and ASCVD risk 15%. High intensity statin would be recommended, but previously noted pt does not tolerate. Please advise if cardiology referral is now necessary per PCP previous note. Remaining labs CMP, CBC and A1c are stable. Results for orders placed or performed in visit on 02/22/23 LIPID PANEL WITH DIRECT LDL IF TG IS HIGH Result Value Ref Range Triglycerides 241 (H) <=174 mg/dL Cholesterol 312 (H) <200 mg/dL HDL Cholesterol 50 >39 mg/dL Non-HDL Cholesterol 262 (H) <=159 mg/dL LDL Cholesterol 214 (H) <=129 mg/dL Alexandria Rincon, PharmD Clinical Pharmacist [facility]) [phone] 02/23/2023 2:00 PM documented in this encounter Plan of Treatment Upcoming Encounters Date Type Department Care Team (Late st Contact Info) Description 04/14/2023 6:20 PM EST Office Visit [facility] [address] [place] [facility] [place] [address] Henrique Sommer MD [address] [place] [facility] [place] [address] Health Maintenance Due Date Last Done [...] this encounter Medical Devices Implanted Type Area Forging Dies Final Finisher Device Identifier Shelf Expiration Date Model / Serial / Lot Lens Intraoc 23.5 - [id number] - [id number] Implanted:Qty: 1 on 06/13/2020 by Yong Soriano MD at OR [facility] Left: Eye [employer]CH [employer] LOMB 05/12/2024 [id number] / [id number] / [id number] Lens Intraoc 24.0 - [id number] - [id number] Implanted:Qty: 1 on 06/27/2020 by Yong Soriano MD at OR [facility] Right: Eye BAUSCH & LOMB 03/11/2024 [id number] / [id number] / [id number] documented as of this encounter Visit Diagnoses Diagnosis Hyperlipidemia with target LDL less than 100- Primary Other and unspecified hyperlipidemia documented in this encounter Care Teams Hospitality Director Relationship Specialty Start Date End Date Henrique Sommer MD [address] [id number] PCP - General Family Medicine 02/24/21 documented as of this encounter
--- OUTSIDE RECORDS SUMMARY | 2023-06-15 06:45 | External Medical Summary ---
Author Name Unknown Address Unknown Organization K01:[facility] [place] [facility] [address] [place] [address] Laboratory Report Ordering Provider Test Date Status MARIOLA BAKER 02/22/2023 08:05:21 Final Observation Date Value Abnormality Reference (Units ) Status Triglyceride 02/22/2023 08:05:21 241 Above high normal <=174 (mg/dL) Final Triglyceride Reference Range s (mg/dL):
<150 Acceptable
150-174 Borderline high
175-499 High
>=500 Very high Cholesterol 02/22/2023 08:05:21 312 Above high normal <200 (mg/dL) Final Total Cholesterol Reference Ranges (mg/dL):
<200 Desirable
200-239 Borderline high
>=240 High HDL 02/22/2023 08:05:21 50 >39 (mg/dL ) Final HDL Cholesterol Reference Ra nges (mg/dL):
>=60 High (Desirable)
<50 Low (Undesirable) For Females
<40 Low (Undesirable) For Males NON-HDL CHOLESTEROL 02/22/2023 08:05:21 262 Above high normal <=159 (mg/dL) Final Non-HDL Cholesterol Referenc e Range (mg/dL):
<100 Target level for high risk ASCVD patient
<130 Optimal for general population
130-159 Near optimal for general population
160-189 Borderline High
190-219 High
>=220 Very High LDL, (calculated) 02/22/2023 08:05:21 214 Above high n ormal <=129 (mg/dL) Final LDL Cholesterol Reference Ra nges (mg/dL):
<70 Target level for high risk ASCVD patient
<100 Optimal for general population
100-129 Near optimal for general population
130-159 Borderline high
160-189 High
>=190 Very high Performing Location LABORATORY [facility] [place] - [address] [facility] [address]
--- OUTSIDE RECORDS SUMMARY | 2023-06-15 06:45 | External Medical Summary | Summary of Care ---
Author Name Unknown Organization [facility] Address [address] [place] [address] Phone [phone] Care Team Providers Care Marble Cutter Operator Name Role Phone Paco Sommer MD Primary Care Provider [phone] Reason for Visit * Reason Comments eRx-Medication Refill Encounter Details Date Type Department Care Team (Late st Contact Info) Description 11/30/2022 Refill [facility] [address] [place] [address] Paco Sommer MD [address] [place] [address] Encounter for long-term (current) use of medications*; HTN, goal below 130/80 Allergies Active Allergy Reactions Criticality Noted Date Comments Bee Pollen 12/25/2020 Bee Venom High 07/16/2021 Other reaction(s): ITCHING AND BODY SWELLING documented as of this encounter (statuses as of 02/24/2023) Medications Medication Sig Dispensed Refills Start Date [...] TABLET BY MOUTH ONCE DAILY 90 Tablet 2 03/17/2022 3 Discontinued hydroCHLOROthiaz colten 25 MG Oral Tablet (Hydrodiuril)Ind ications:HTN, goal below 130/80 TAKE 1 TABLET BY MOUTH ONCE DAILY 90 Tablet 1 03/23/2022 3 Discontinued FLUoxetine HCl 20 MG Oral Capsule (PROzac) TAKE ONE CAPSULE BY MOUTH IN THE MORNING 90 Capsule 1 06/26/2022 3 Discontinued documented as of this encounter (statuses as of 02/24/2023) Active Problems Problem Noted Date Diagnosed Date Prediabetes 02/23/2022 Overview: Per Prediabetes protocol Major depressive disorder, single episode, mild 02/20/2022 HTN, goal below 130/80 05/30/2021 Hyperlipidemia with target LDL less than 100 Statin intolerance 05/30/2021 documented as of this encounter (statuses as of 02/24/2023) Resolved Problems Problem Noted Date Diagnosed Date Resolved Date NONE 02/20/2022 documented as of this encounter (statuses as of 02/24/2023) Immunizations Name Administration Dates Next Due TDAP [...] encounter Miscellaneous Notes * Telephone Encounter - Sonya Leigh PHARM Tech - 02/24/2023 8:54 AM EST Received message from [facility] regarding patient needing labs. Placed call to patient to advise. Pt had ordered labs completed on 02/22/2023; no follow-up is needed. Thank you for your assistance Sonya Leigh Sales Recruiting Coordinator II [facility] ([facility]) (Formerly Telepharmacy) 02/24/2023,8:54 AM * Telephone Encounter - Olivia Calvillo [facility] - 12/01/2022 8:13 AM EDTSigned Prescriptions: Disp Refills hydroCHLOROthiazide 25 MG Oral Tablet (Hyd*90 Tab*0 Sig: TAKE 1 TABLET BY MOUTH ONCE DAILY Authorizing Provider: PACO SOMMER Ordering User: OLIVIA CALVILLO * Telephone Encounter - Olivia Calvillo [facility] - 12/01/2022 8:12 AM EDT Provided 90 days supply with 0 refill(s) until upcoming appointment. Per refill protocol patient should have CMP on file within past year. Reviewed AMP report, Care Gaps/Health Maintenance, medications list, and for any routine labs typically ordered for this patient. Lab orders placed. Please contact patient to advise of labs ordered for blood draw. Recommend patient to fast if able for labs. Patient may still have water and regular medications. Advise to obtain labs before his scheduled office visit 03/02/2023. ThanksOlivia, TrinaD Clinical Pharmacist [facility] ([facility] - Formerly Telepharmacy) [phone] 12/01/2022 8:13 AM documented in this encounter Plan of Treatment Upcoming Encounters Date Type Department Care Team (Late st Contact Info) Description 04/14/2023 6:20 PM EST Office Visit [facility] [address] [place] [address] Paco Sommer MD [address] [place] [address] Health Maintenance Due Date Last [...] this encounter Medical Devices Implanted Type Area Bead Worker Sewing Device Identifier Shelf Expiration Date Model / Serial / Lot Lens Intraoc 23.5 - [id number] - [id number] Implanted:Qty: 1 on 06/13/2020 by Yong Soriano MD at OR [facility] Left: Eye [employer]OM[employer] 05/12/2024 [id number] / [id number] / [id number] Lens Intraoc 24.0 - [id number] - [id number] Implanted:Qty: 1 on 06/27/2020 by Yong Soriano MD at OR [facility] Right: Eye BAUSCH & LOMB 03/11/2024 [id number] / [id number] / [id number] documented as of this encounter Results * (ABNORMAL) LIPID PANEL WITH DIRECT LDL IF TG IS HIGH (02/22/2023 8:05 AM EST) Triglycerides 241(H) <=174 mg/dL 02/22/2023 5:29 PM EST [facility] Comment: Triglyceride Reference Ranges (mg/dL): <150 Acceptable 150-174 Borderline high 175-499 High >=500 Very high Cholesterol 312(H) <200 mg/dL 02/22/2023 5:29 PM EST [facility] Comment: Total Cholesterol Reference Ranges (mg/dL): <200 Desirable 200-239 Borderline high >=240 High HDL Cholesterol 50 >39 mg/dL 5:29 PM EST [facility] Comment: HDL Cholesterol Reference Ranges (mg/dL): >=60 High (Desirable) <50 Low (Undesirable) For Females <40 Low (Undesirable) For Males Non-HDL Cholesterol 262(H) <=159 mg/dL 02/22/2023 5:29 PM EST [facility] Comment: Non-HDL Cholesterol Reference Range (mg/dL): <100 Target level for high risk ASCVD patient <130 Optimal for general population 130-159 Near optimal for general population 160-189 Borderline High 190-219 High >=220 Very High LDL Cholesterol 214(H) <=129 mg/dL 02/22/2023 5:29 PM EST [facility] Comment: LDL Cholesterol Reference Ranges (mg/dL): <70 Target level for high risk ASCVD patient <100 Optimal for general population 100-129 Near optimal for general population 130-159 Borderline high 160-189 High >=190 Very high Blood Venous blood specimen / Unknown Venipuncture / Unknown 02/22/2023 8:05 AM EST 02/22/2023 8:05 AM EST Olivia Corona [facility] LAB BLOOD ORDERABLE S Performing Organization Address [facility] de Phone Number [facility]ORY [facility] [address] [place] [address] * (ABNORMAL) HEMOGLOBIN A1C (02/22/2023 8:05 AM EST) Hemoglobin A1C 5.7(H) 4.0 - 5.6 % 02/22/2023 5:34 PM EST [facility] Comment:The use of HbA1c to monitor glycemic status is based on normal hemoglobin and HbA composition. This test should not be used in patients with abnormal hemoglobin that affects the half life of the red blood cell or the in vivo glycation rates. Estimated Average Glucose 117 <126 mg/dL 02/22/2023 5:34 PM EST [facility] Blood Venous blood specimen / Unknown Venipuncture / Unknown 02/22/2023 8:05 AM EST 02/22/2023 8:05 AM EST [facility] LAB BLOOD ORDERABLE S Performing Organization Address [facility] Co de Phone Number [facility]ORY [facility] [address] [place] [address] * (ABNORMAL) CBC (02/22/2023 8:05 AM EST) WBC 8.63 4.00 - 10.80 K/uL 02/22/2023 8:29 PM EST [facility] RBC 5.41 4.50 - 5.25 M/uL 02/22/2023 8:29 PM EST [facility] HGB 15.7 14.0 - 16.8 g/dL 02/22/2023 8:29 PM EST [facility] HCT 49.7(H) 40.0 - 48.4 % 02/22/2023 8:29 PM EST [facility] MCV 91.9 82.0 - 99.5 fL 02/22/2023 8:29 PM EST [facility] MCH 29.0 27.0 - 34.0 pg 02/22/2023 8:29 PM EST [facility] MCHC 31.6 32.0 - 36.0 g/dL 02/22/2023 8:29 PM EST [facility] RDW 13.7 11.5 - 15.5 % 02/22/2023 8:29 PM EST [facility] PLT 315 140 - 400 K/uL 02/22/2023 8:29 PM EST [facility] MPV 10.5 6.6 - 11.1 fL 02/22/2023 8:29 PM EST [facility] nRBCs 0 <=0 /100 WBCs 02/22/2023 8:29 PM EST [facility] Blood Venous blood specimen / Unknown Venipuncture / Unknown 02/22/2023 8:05 AM EST 02/22/2023 8:05 AM EST Olivia Chloe Calvillo [facility] LAB BLOOD ORDERABLE S LABORATORY [facility] [address] [place] [address] * COMPREHENSIVE METABOLIC PANEL (02/22/2023 8:05 AM EST) [facility] BUN 12 6 - 20 mg/dL 02/22/2023 5:29 PM EST [facility] Creatinine 1.1 0.6 - 1.2 mg/dL 02/22/2023 5:29 PM EST [facility] Estimated Glomerular Filtration Rate 77 >=60 mL/min 02/22/2023 5:29 PM EST [facility] Comment:eGFR is calculated b ased on the CKD-EPI 2020 equation Sodium 137 135 - 146 mmol/L 02/22/2023 5:29 PM EST [facility] Potassium 4.5 3.5 - 5.1 mmol/L 02/22/2023 5:29 PM EST [facility] Chloride 99 98 - 107 mmol/L 02/22/2023 5:29 PM EST [facility] CO2 27 22 - 32 mmol/L 02/22/2023 5:29 PM EST [facility] Anion Gap 11 7 - 15 mmol/L 02/22/2023 5:29 PM EST [facility] Glucose 99 70 - 120 mg/dL 02/22/2023 5:29 PM EST [facility] Albumin 4.4 3.8 - 5.0 g/dL 02/22/2023 5:29 PM EST [facility] AST 22 10 - 50 U/L 02/22/2023 5:29 PM EST [facility] Alkaline Phosphatase 69 35 - 130 U/L 02/22/2023 5:29 PM EST [facility] Bilirubin, Total 0.3 <=1.2 mg/dL 02/22/2023 5:29 PM EST [facility] Calcium 9.2 8.4 - 10.2 mg/dL 02/22/2023 5:29 PM EST [facility] Protein 6.3 6.0 - 8.3 g/dL 02/22/2023 5:29 PM EST [facility] ALT 35 10 - 50 U/L 02/22/2023 5:29 PM EST [facility] Blood Venous blood specimen / Unknown Venipuncture / Unknown 02/22/2023 8:05 AM EST 02/22/2023 8:05 AM EST Olivia Calvillo [facility] LAB BLOOD ORDERABLE S [facility] [address] [place] [address] documented in this encounter Visit Diagnoses Diagnosis Encounter for long-term (current) use of medications- Primary Encounter for long-term (current) use of other medications HTN, goal below 130/80 Unspecified essential hypertension documented in this encounter Care Teams Marble Cutter Operator Relationship Specialty Start Date End Date Paco Sommer MD [address] [place] [address] PCP - General Family Medicine 02/24/21 documented as of this encounter
--- OUTSIDE RECORDS SUMMARY | 2023-06-15 06:45 | External Medical Summary | Summary of Care ---
Author Name Unknown Organization [facility] Address [address] [place] [address] Phone [phone] Care Team Providers Care Inspection Supervisor Name Role Phone Paco Sommer MD Primary Care Provider [phone] Reason for Visit * Reason Onset Date Comments Medication Refill 02/26/2023 Encounter Details Date Type Department Care Team (Late st Contact Info) Description 02/26/[address] [facility] [address] [place] [address] Paco Sommer MD [address] [place], [place] [id number] Allergies Active Allergy Reactions Criticality Noted Date Comments Bee Pollen 12/25/2020 Bee Venom High 07/16/2021 Other reaction(s): ITCHING AND BODY SWELLING documented as of this encounter (statuses as of 02/27/2023) Medications Medication Sig Dispensed Refills Start Date [...] the morning. 90 Tablet 1 02/27/2023 Active Diclofenac Sodium 75 MG Oral Tablet Delayed Release (Voltaren) TAKE ONE TABLET BY MOUTH EVERY MORNING 90 Tablet 1 07/23/2022 02/26/2023 Discontinue d(Refill) documented as of this encounter (statuses as of 02/27/2023) Active Problems Problem Noted Date Diagnosed Date Prediabetes 02/23/2022 Overview: Per Prediabetes protocol Major depressive disorder, single episode, mild 02/20/2022 HTN, goal below 130/80 05/30/2021 Hyperlipidemia with target LDL less than 100 Statin intolerance 05/30/2021 documented as of this encounter (statuses as of 02/27/2023) Resolved Problems Problem Noted Date Diagnosed Date Resolved Date NONE 02/20/2022 documented as of this encounter (statuses as of 02/27/2023) Immunizations Name Administration Dates Next Due TDAP [...] encounter Miscellaneous Notes * Telephone Encounter - Jeremie Mackay [facility] - 02/27/2023 8:51 AM ESTSigned Prescriptions: Disp Refills Diclofenac Sodium 75 MG Oral Tablet Delaye*90 Tab*1 Sig: Take 1 Tablet by mouth in the morning. Authorizing Provider: PACO SOMMER Ordering User: JEREMIE MACKAY * Telephone Encounter - Leonarda Martin PHARM Tech - 02/26/2023 3:17 PM EST Did you pend patient's preferred pharmacy and medication before forwarding?yes Pharmacy: [id number] [facility] Pending Prescriptions: Disp Refills Diclofenac Sodium 75 MG Oral Tablet Delay*90 Tab*1 Sig: Take 1 Tablet by mouth in the morning. In the morning.. Last Visit: 08/27/2022 (in office), Visit date not found (telemedicine) Next Visit: 04/14/2023 If no future appointments scheduled, and last appointment is greater than a year ago, please schedule patient for a follow-up appointment Last date the medication was ordered: 07/23/2022 Is this request for a controlled substance?No Urine Drug Screen:No results found for this or any previous visit. Patient Phone Numbers Labs: Lab Results Component Value Date/Time CREAT 1.1 02/22/2023 08:05 AM CREAT 0.97 10/07/2020 12:00 AM CREAT 1.1 03/11/2004 09:02 AM POTASSIUM 4.5 02/22/2023 08:05 AM POTASSIUM 4.5 10/07/2020 12:00 AM POTASSIUM 4.6 03/11/2004 09:02 AM TSH 0.76 10/07/2020 12:00 AM LDLCALC 214 (H) 02/22/2023 08:05 AM LDLCALC 182 (H) 10/21/2020 12:00 AM LDLCALC 180 (H) 03/11/2004 09:02 AM ALT 35 02/22/2023 08:05 AM ALT 33 04/30/2004 04:29 PM HGBA1C 5.7 (H) 02/22/2023 08:05 AM documented in this encounter Plan of Treatment Upcoming Encounters Date Type Department Care Team (Late st Contact Info) Description 04/14/2023 6:20 PM EST Office Visit [facility] [address] [place] [address] Paco Sommer MD [address] [place], [place] [id number] Health Maintenance Due Date Last Done Comments [...] this encounter Medical Devices Implanted Type Area Manual Arts Teacher Device Identifier Shelf Expiration Date Model / Serial / Lot Lens Intraoc 23.5 - [id number] - [id number] Implanted:Qty: 1 on 06/13/2020 by Yong Soriano MD at OR [facility] Left: Eye BA[employer]CH [employer] LOMB 05/12/2024 [id number] / [id number] / [id number] Lens Intraoc 24.0 - [id number] - [id number] Implanted:Qty: 1 on 06/27/2020 by Yong Soriano MD at OR [facility] Right: Eye BAUSCH [employer] LOMB 03/11/2024 [id number] / [id number] / [id number] documented as of this encounter Care Teams Inspection Supervisor Relationship Specialty Start Date End Date Paco Sommer MD [address] [place] [address] PCP - General Family Medicine 02/24/21 documented as of this encounter
--- OUTSIDE RECORDS SUMMARY | 2023-06-15 06:45 | External Medical Summary | Summary of Care ---
Author Name Unknown Organization [facility] Address [address] [place] [address] Phone [phone] Care Team Providers Care Bird Keeper Name Role Phone Paco Sommer MD Primary Care Provider [phone] Reason for Visit * Reason Comments eRx-Medication Refill Encounter Details Date Type Department Care Team (Late st Contact Info) Description 05/24/2023 Refill [facility] [address] [place] [address] Paco Sommer MD [address] [place] [address] HTN, goal below 130/80 Allergies Active Allergy Reactions Criticality Noted Date Comments Bee Pollen 12/25/2020 Bee Venom High 07/16/2021 Other reaction(s): ITCHING AND BODY SWELLING documented as of this encounter (statuses as of 05/24/2023) Medications Medication Sig Dispensed Refills Start Date [...] 1 02/27/2023 Active Lisinopril 40 MG Oral TabletIndication s:HTN, goal below 130/80 TAKE 1 TABLET BY MOUTH ONCE DAILY 90 Tablet 1 03/23/2023 Active hydroCHLOROthiaz colten 25 MG Oral Tablet (Hydrodiuril)Ind ications:HTN, goal below 130/80 TAKE 1 TABLET BY MOUTH ONCE DAILY 90 Tablet 3 05/24/2023 Active hydroCHLOROthiaz colten 25 MG Oral Tablet (Hydrodiuril)Ind ications:HTN, goal below 130/80 TAKE 1 TABLET BY MOUTH ONCE DAILY 90 Tablet 0 03/03/2023 4 Discontinued documented as of this encounter (statuses as of 05/24/2023) Active Problems Problem Noted Date Diagnosed Date Prediabetes 02/23/2022 Overview: Per Prediabetes protocol Major depressive disorder, single episode, mild 02/20/2022 HTN, goal below 130/80 05/30/2021 Hyperlipidemia with target LDL less than 100 Statin intolerance 05/30/2021 documented as of this encounter (statuses as of 05/24/2023) Resolved Problems Problem Noted Date Diagnosed Date Resolved Date NONE 02/20/2022 documented as of this encounter (statuses as of 05/24/2023) Immunizations Name Administration Dates Next Due TDAP [...] encounter Miscellaneous Notes * Telephone Encounter - Claudio Plunkett, [facility] - 05/24/2023 4:03 PM ESTSigned Prescriptions: Disp Refills hydroCHLOROthiazide 25 MG Oral Tablet (Hyd*90 Tab*3 Sig: TAKE 1 TABLET BY MOUTH ONCE DAILYAuthorizing Provider: PACO SOMMER User: CLAUDIO PLUNKETT------ Electronically signed by Claudio Plunkett, [facility] at 05/24/2023 4:03 PM EST documented in this encounter Plan of Treatment Upcoming Encounters Date Type Department Care Team (Late st Contact Info) Description 10/20/2023 6:00 PM EDT Office Visit [facility] [address] [place] [address] Paco Sommer MD [address], [place] [phone] Health Maintenance Due Date Last Done Comments [...] this encounter Medical Devices Implanted Type Area Clarifier Operator Helper Device Identifier Shelf Expiration Date Model / Serial / Lot Lens Intraoc 23.5 - [id number] - [id number] Implanted:Qty: 1 on 06/13/2020 by Yong Soriano MD at OR [facility] Left: Eye BAUSCH [employer] LOMB 05/12/2024 [id number] / [id number] / [id number] Lens Intraoc 24.0 - [id number] - [id number] Implanted:Qty: 1 on 06/27/2020 by Yong Soriano MD at OR [facility] Right: Eye BAUSCH & LOMB 03/11/2024 [id number] / [id number] / [id number] documented as of this encounter Visit Diagnoses Diagnosis HTN, goal below 130/80 Unspecified essential hypertension documented in this encounter Care Teams Bird Keeper Relationship Specialty Start Date End Date Paco Sommer MD [address] [place] [address] PCP - General Family Medicine 02/24/21 documented as of this encounter
--- OUTSIDE RECORDS SUMMARY | 2023-06-15 06:45 | External Medical Summary | Summary of Care ---
Author Name Unknown Organization [facility] Address [address] [place] [address] Phone [phone] Care Team Providers Care Poultry Veterinarian Name Role Phone Paco Sommer MD Primary Care Provider [phone] Reason for Visit * Reason Comments eRx-Medication Refill Encounter Details Date Type Department Care Team (Late st Contact Info) Description 03/03/2023 Refill [facility] [address] [place] [address] Paco Sommer MD [address] [place] [address] HTN, goal below 130/80 Allergies Active Allergy Reactions Criticality Noted Date Comments Bee Pollen 12/25/2020 Bee Venom High 07/16/2021 Other reaction(s): ITCHING AND BODY SWELLING documented as of this encounter (statuses as of 03/03/2023) Medications Medication Sig Dispensed Refills Start Date [...] the morning. 90 Tablet 3 08/27/2022 Active Lisinopril 40 MG Oral TabletIndication s:HTN, [...] ONCE DAILY 90 Tablet 0 03/03/2023 Active hydroCHLOROthiaz colten 25 MG Oral Tablet (Hydrodiuril)Ind ications:HTN, goal below 130/80 TAKE 1 TABLET BY MOUTH ONCE DAILY 90 Tablet 0 12/01/2022 3 Discontinued documented as of this encounter (statuses as of 03/03/2023) Active Problems Problem Noted Date Diagnosed Date Prediabetes 02/23/2022 Overview: Per Prediabetes protocol Major depressive disorder, single episode, mild 02/20/2022 HTN, goal below 130/80 05/30/2021 Hyperlipidemia with target LDL less than 100 Statin intolerance 05/30/2021 documented as of this encounter (statuses as of 03/03/2023) Resolved Problems Problem Noted Date Diagnosed Date Resolved Date NONE 02/20/2022 documented as of this encounter (statuses as of 03/03/2023) Immunizations Name Administration Dates Next Due TDAP [...] encounter Miscellaneous Notes * Telephone Encounter - Marcos Malin [facility] - 03/03/2023 7:18 PM EST Signed Prescriptions: Disp Refills hydroCHLOROthiazide 25 MG Oral Tablet (Hyd*90 Tab*0 Sig: TAKE 1 TABLET BY MOUTH ONCE DAILYAuthorizing Provider: PACO SOMMER User: MARCOS MALIN--- documented in this encounter Plan of Treatment Upcoming Encounters Date Type Department Care Team (Late st Contact Info) Description 04/14/2023 6:20 PM EST Office Visit [facility] [address] [place] [address] Paco Sommer MD [address] [place] [address] Health Maintenance Due Date Last [...] this encounter Medical Devices Implanted Type Area Universal Branch Consultant Device Identifier Shelf Expiration Date Model / Serial / Lot Lens Intraoc 23.5 - [id number] - [id number] Implanted:Qty: 1 on 06/13/2020 by Yong Soriano MD at OR [facility] Left: Eye BAUSCH & LOMB 05/12/2024 [id number] / [id number] / [id number] Lens Intraoc 24.0 - [id number] - [id number] Implanted:Qty: 1 on 06/27/2020 by Yong Soriano MD at OR [facility] Right: Eye BAUSCH & LOMB 03/11/2024 [id number] / [id number] / [id number] documented as of this encounter Visit Diagnoses Diagnosis HTN, goal below 130/80 Unspecified essential hypertension documented in this encounter Care Teams Poultry Veterinarian Relationship Specialty Start Date End Date Paco Sommer MD [address] [place] [address] PCP - General Family Medicine 11/15/21 documented as of this encounter
--- OUTSIDE RECORDS SUMMARY | 2023-06-15 06:45 | External Medical Summary ---
Author Name Unknown Address Unknown Organization K01:LAB[facility]ATORY [facility] - [address] [facility] [place] [address] Laboratory Report Ordering Provider Test Date Status MARIOLA BAKER 02/22/2023 08:05:21 Final Observation Date Value Abnormality Reference (Units ) Status BUN 02/22/2023 08:05:21 12 6-20 (mg/dL) Final Creatinine 02/22/2023 08:05:21 1.1 0.6-1.2 (mg/dL) Final Glomerular filtration rate/1.73 sq M.predicted [Volume Rate/Area] in Serum, Plasma or Blood by Creatinine-based formula (CKD-EPI) 02/22/2023 08:05:21 77 >=60 (mL/min) Final eGFR is calculated based on the CKD-EPI 2020 equation SODIUM 02/22/2023 08:05:21 137 135-146 (m mol/L) Final Potassium 02/22/2023 08:05:21 4.5 3.5-5.1 (m mol/L) Final Cl 02/22/2023 08:05:21 99 98-107 (mm ol/L) Final CO2 02/22/2023 08:05:21 27 22-32 (mmo l/L) Final Anion gap 02/22/2023 08:05:21 11 7-15 (mmol /L) Final Glucose 02/22/2023 08:05:21 99 70-120 (mg /dL) Final Albumin 02/22/2023 08:05:21 4.4 3.8-5.0 (g /dL) Final AST (Aspartate aminotransferase) 02/22/2023 08:05:21 22 10-50 (U/L) Final Alk Phos 02/22/2023 08:05:21 69 35-130 (U/ L) Final Bilirubin, Total 02/22/2023 08:05:21 0.3 <=1 .2 (mg/dL) Final Calcium 02/22/2023 08:05:21 9.2 8.4-10.2 ( mg/dL) Final Protein 02/22/2023 08:05:21 6.3 6.0-8.3 (g /dL) Final ALT (Alanine aminotransferase) 02/22/2023 08:05:21 35 10-50 (U/L) Final Performing Location [facility]ORY [facility] - [address] [facility] [address]
--- OUTSIDE RECORDS SUMMARY | 2023-06-15 06:45 | External Medical Summary | Summary of Care ---
Author Name Unknown Organization [facility] Address [address] [place] [address] Phone [phone] Care Team Providers [employer] Pilot Name Role Phone Henrique Sommer MD Primary Care Provider [phone] Encounter Details Date Type Department Care Team (Late st Contact Info) Description 05/17/2023 Result Scan Unspecified Department <No scans attached> Allergies Active Allergy Reactions Criticality Noted Date Comments Bee Pollen 12/25/2020 Bee Venom High 07/16/2021 Other reaction(s): ITCHING AND BODY SWELLING documented as of this encounter (statuses as of 05/19/2023) Medications Medication Sig Dispensed Refills Start Date [...] as of this encounter (statuses as of 05/19/2023) Active Problems Problem Noted Date Diagnosed Date Prediabetes 02/23/2022 Overview: Per Prediabetes protocol Major depressive disorder, single episode, mild 02/20/2022 HTN, goal below 130/80 05/30/2021 Hyperlipidemia with target LDL less than 100 Statin intolerance 05/30/2021 documented as of this encounter (statuses as of 05/19/2023) Resolved Problems Problem Noted Date Diagnosed Date Resolved Date NONE 02/20/2022 documented as of this encounter (statuses as of 05/19/2023) Immunizations Name Administration Dates Next Due TDAP [...] Description 10/20/2023 6:00 PM EDT Office Visit [facility] [address] [place] [address] Henrique Sommer MD [address] [place] [address] Health Maintenance Due Date Last [...] this encounter Medical Devices Implanted Type Area Industrial Organization Manager Device Identifier Shelf Expiration Date Model / Serial / Lot Lens Intraoc 23.5 - [id number] - [id number] Implanted:Qty: 1 on 06/13/2020 by Yong Soriano MD at OR [facility] Left: Eye [employer]OM[employer] 05/12/2024 [id number] / [id number] / [id number] Lens Intraoc 24.0 - [id number] - [id number] Implanted:Qty: 1 on 06/27/2020 by Yong Soriano MD at OR [facility] Right: Eye BAUSCH [employer] LOMB 03/11/2024 [id number] / [id number] / [id number] documented as of this encounter Procedures Procedure Name Priority Date/Time Associated Diagnosis Comments PROCEDURE SCANNED RESULT 05/17/2023 documented in this encounter Results * PROCEDURE SCANNED RESULT (05/17/2023) 05/17/2023 No Physician Data Unknown SURGERY documented in this encounter Care Teams Corporation Pilot Relationship Specialty Start Date End Date Henrique Sommer MD [address] [place] [address] PCP - General Family Medicine 02/24/21 documented as of this encounter
--- OUTSIDE RECORDS SUMMARY | 2023-06-15 06:46 | External Medical Summary | Summary of Care ---
Author Name Unknown Organization [facility] Address [address] [place] [address] Phone [phone] Care Team Providers Care Strategic Planning Specialist Name Role Phone Paco Sommer MD Primary Care Provider [phone] Reason for Visit * Reason Comments eRx-Medication Refill Encounter Details Date Type Department Care Team Description 12/30/[address] [facility] [address] [place] [address] Paco Sommer MD [address] [place] [address] HTN, goal below 130/80 Allergies Active Allergy Reactions Severity Noted Date Comments Bee Pollen 12/25/2020 Bee Venom High 07/16/2021 Other reaction(s): ITCHING AND BODY SWELLING documented as of this encounter (statuses as of 12/31/2022) Medications Medication Sig Dispensed Refills Start Date End Date Status Famotidine 20 MG Oral Tablet (Pepcid)Indicati ons:Dyspepsia Take by mouth 1 Tablet in the morning. 30 Tablet 11 06/13/2021 Active Albuterol Sulfate HFA 108 (90 Base) MCG/ACT Inhalation Aerosol Solution 0 02/07/2022 Active Fluticasone Propionate 50 MCG/ACT Nasal Suspension Administer 2 Sprays into each nostril in the morning. 16 g 1 02/20/2022 Active FLUoxetine HCl 20 MG Oral Capsule (PROzac) TAKE ONE CAPSULE BY MOUTH IN THE MORNING 90 Capsule 1 06/26/2022 Active Diclofenac Sodium 75 MG Oral Tablet [...] ONCE DAILY 90 Tablet 0 12/31/2022 Active Lisinopril 40 MG Oral TabletIndication s:HTN, goal below 130/80 TAKE 1 TABLET BY MOUTH ONCE DAILY 90 Tablet 2 03/17/2022 3 Discontinued documented as of this encounter (statuses as of 12/31/2022) Active Problems Problem Noted Date Prediabetes 02/23/2022 Overview: Per Prediabetes protocol Major depressive disorder, single episod e, mild 02/20/2022 HTN, goal below 130/80 05/30/2021 Hyperlipidemia with target LDL less than 100 05/30/2021 Statin intolerance 05/30/2021 documented as of this encounter (statuses as of 12/31/2022) Resolved Problems Problem Noted Date Resolved Date NONE 02/20/2022 documented as of this encounter (statuses as of 12/31/2022) Immunizations Name Administration Dates Next Due TDAP (age 10 and older)(Boostrix) 05/30/2021 documented as of this encounter Social History Tobacco Use Types Packs/Day Years Used Date Smoking Tobacco: Never Smokeless Tobacco: Current Snuff Comments:1 can of snuff Alcohol Use Standard Drinks/Week Comments Yes 0 (1 standard drink = 0.6 oz pur e alcohol) 3-4 beers per wk Sex Assigned at Date Recorded Not on file Job Start Date Occupation Industry Not on file Not on file Not on file documented as of this encounter Miscellaneous Notes * Telephone Encounter - [facility] - 12/31/2022 1:44 PM EDTSigned Prescriptions: Disp Refills Lisinopril 40 MG Oral Tablet 90 Tab*0 Sig: TAKE 1 TABLET BY MOUTH ONCE DAILYAuthorizing Provider: PACO SOMMER User: JEREMIE MACKAY Electronically signed by [facility] at 12/31/2022 1:44 PM EDT * Telephone Encounter - [facility] - 12/31/2022 1:43 PM EDT RX authorized. Zero refills given until upcoming OV and labs are completed. Thank You, [facility] Clinical Pharmacist [facility] ([facility]) (formerly Telepharmacy) [phone] 12/31/2022, 1:43 PM Electronically signed by [facility] at 12/31/2022 1:44 PM EDT documented in this encounter Plan of Treatment Upcoming Encounters Date Type Specialty Care Team Description 03/02/2023 Office Visit Family Medicine Paco Sommer MD [address] [place] [address] Health Maintenance Due Date Last [...] this encounter Medical Devices Implanted Type Area Military Logistics Specialist Device Identifier Shelf Expiration Date Model / Serial / Lot Lens Intraoc 23.5 - [id number] - [id number] Implanted:Qty: 1 on 06/13/2020 by Yong Soriano MD at OR [facility] Left: Eye BAUSCH [employer] LOMB 05/12/2024 [id number] / [id number] / [id number] Lens Intraoc 24.0 - [id number] - [id number] Implanted:Qty: 1 on 06/27/2020 by Yong Soriano MD at OR [facility] Right: Eye BAUSCH [employer] LOMB 03/11/2024 [id number] / [id number] / [id number] documented as of this encounter Visit Diagnoses Diagnosis HTN, goal below 130/80 Unspecified essential hypertension documented in this encounter Care Teams Strategic Planning Specialist Relationship Specialty Start Date End Date Paco Sommer MD [address] [place] [address] PCP - General Family Medicine 02/24/21 documented as of this encounter
[2023-06-15] MEDS: FAMOTIDINE 20MG IV PUSH 20 MG/5 ML SYR IV SCH (07:35)
[2023-06-15] MEDS: ENOXAPARIN INJ 40 MG/0.4 ML SYR SQ SCH (07:35)
[2023-06-15] MEDS: ROSUVASTATIN CALCIUM 5 MG TAB PO SCH (07:36)
[2023-06-15] MEDS: FLUoxetine HCL 20 MG CAP PO SCH (07:37)
[2023-06-15] MEDS: lisinopril 40 MG TAB PO SCH (07:37)
[2023-06-15] MEDS: amLODIPine BESYLATE 5 MG TAB PO SCH (07:37)
[2023-06-15 07:41] LABS: Basophils # (auto) 0.01 K/uL (0.00-0.20); Basophils % (auto) 0.1 %; Eosinophils # (auto) 0.08 K/uL (0.00-0.50); Eosinophils % (auto) 1.1 %; Hematocrit (blood only) 43.5 % (42.0-52.0); Hemoglobin 14.3 g/dl (14.0-18.0); Immature Granulocytes # (auto) 0.03 K/uL (0.01-0.20); Immature Granulocytes % (auto) 0.4 %; Lymphocytes # (auto) 0.59 K/uL (1.20-3.40); Lymphocytes % (auto) 7.8 %; Mean Corpuscular Hemoglobin 27.9 pg (25.0-34.0); Mean Corpuscular Hgb Conc 32.9 g/dL (32.0-36.0); Mean Platelet Volume 9.5 fL (9.4-12.4); Monocytes # (auto) 0.59 K/uL (0.11-0.59); Monocytes % (auto) 7.8 %; Neutrophils # (auto) 6.23 K/uL (1.40-6.50); Neutrophils % (auto) 82.8 %; Platelet Count 239 K/uL (130-400); Red Blood Count 5.12 M/uL (4.70-6.10); White Blood Count 7.53 K/ul (4.8-10.8)
[2023-06-15 07:56] LABS: BUN Creatinine Ratio 23.7 (10-20); Creatinine Clr Calc Pharmacy 101.1 ml/min; Est GFR (African American) 94.6 ml/min; Est GFR (Non-African American) 81.6 ml/min; Magnesium 1.7 mg/dl (1.7-2.4); Potassium 4.2 mmol/L (3.5-5.1)
--- NOTE | 2023-06-15 08:34 | Electrocardiogram Report ---
Test Reason : Blood Pressure : / mmHG Vent. Rate : 096 BPM Atrial Rate : 096 BPM P-R Int : 146 ms QRS Dur : 110 ms QT Int : 356 ms P-R-T Axes : 036 -59 028 degrees QTc Int : 449 ms Normal sinus rhythm Left anterior fascicular block Low voltage QRS Abnormal ECG When compared with ECG of 08-SEP-2022 09:34, QRS axis Shifted left Confirmed by Aroldo Young ([id number]) on 06/15/2023 8:34:33 AM Referred By: REFERRED SELF Confirmed By:Aroldo Young
[2023-06-15 08:57] LABS: Appearance Urine Clear (Clear); Bacteria Urine Automated Negative (Negative); Bilirubin Urine Negative (Negative); Blood Urine Negative (Negative); Cast Urine Automated 0 /lpf (0-5); Color Urine Yellow; Glucose Urine UA Negative (Negative); Ketones Urine Negative (Negative); Leukocyte Esterase Urine Negative (Negative); Nitrite Urine Negative (Negative); Protein Urine Trace (Negative); RBC Urine Automated 0-4 /hpf (0-4); Specific Gravity Urine 1.034 (1.000-1.030); Urobilinogen Urine Negative (Negative)
--- NOTE | 2023-06-15 12:38 | Gastrointestinal Consultation ---
Date of Consultation June 15, 2023 Assessment & Plan (1) Abdominal pain: (2) Enteritis: Plan 67 y/o male admitted w/ abd pain, n/v/diarrhea, and CT suggestive of enteritis. He has sick contacts with his family members; it's very possible he has a viral gastroenteritis. His symptoms have improved significantly overnight. He's not having further n/v/diarrhea. He mostly complains of left lower rib pain that started with a hard cough; this may be MSK/rib related pain. His transiently elevated lipase may have been related to his multiple episodes of vomiting; he had no abnormal appearing pancreas on CT and lipase has normalized so unlikely that he had actual pancreatitis. - Would recommend supportive care including IVF, analgesia, antiemetic PRN - Advance diet when ready, would do low-residue - Encouraged pt to consider OP colonoscopy for colorectal screening purposes - Encouraged tobacco cessation, ETOH avoidance Thank you for allowing us to participate in the care of this patient. Please call with any acute changes, questions or concerns. Please see addendum below with additional recommendation from my supervising physician. Supervising Physician Co-Signing Physician Notes I agree with pe and plan as documented. Benign abd exam. Agree with supportive care for suspected gastroenteritis. History of Present Illness Reason for Consultation: abdominal pain, n/v and diarrhea, elevated lipase Requesting Physician: Dr. Amanda Attending Physician: Tano Pickering MD History of Present Illness This is a 67 y/o male with h/o HTN, HLD, depression, ETOH use, tobacco use, BPH s/p TURP, and others, who developed diarrhea/n/v yesterday. He coughed and developed severe left lower rib pain and came to the ED. Upon arrival, CTAP suggestive of enteritis. He had an elevated lipase that has since resolved. Pancreas was unremarkable on CT> Labs including CBC, BMP, LFTs unremarkable. Today no further vomiting, no diarrhea. He states he feels much better. Has chronic intermittent RUQ pain for years; no other abd pain; mostly complains of left lower rib pain to me. Doesn't have much of an appetite. He states his whole family (daughter, at bedside) have had n/v/diarrhea lately, he thinks they had "the stomach flu." Pt states he quit drinking ETOH in Mar 2023; previous use he didn't give many details. Continues to chew tobacco. He has never had a colonoscopy. He may have had an upper endoscopy many years ago. Allergies Allergy/AdvReac Type Severity Reaction Status Date / Time bee venom protein (honey bee) Allergy Intermediate ITCHING Verified 06/14/23 21:15 AND BODY SWELLING Home Medications Medication Instructions Recorded Confirmed Type amlodipine 10 mg tablet 5 mg PO QAM 01/17/21 06/14/23 History hydrochlorothiazide 25 mg tablet 25 mg PO QAM 01/17/21 06/14/23 History lisinopril 40 mg tablet 40 mg PO QAM 07/16/21 06/14/23 History albuterol sulfate 90 mcg/actuation 2 inh inhalation Q4H PRN shortness 02/07/22 06/14/23 Rx aerosol inhaler (Ventolin HFA) of breath or wheezing #6.7 grams fluoxetine 20 mg capsule (Prozac) 20 mg PO QAM 08/16/22 06/14/23 History diclofenac sodium 75 mg 75 mg PO QAM 09/08/22 06/14/23 History tablet,delayed release fluticasone propionate 50 2 spray intranasal DAILY PRN 06/14/23 06/14/23 History mcg/actuation nasal Congestion spray,suspension rosuvastatin 5 mg tablet 5 mg PO DAILY 06/14/23 06/14/23 History Patient History Medical History Prediabetes History of COVID-19 Anxiety Hyperlipidemia Hypertension 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 Surgical History History of cystoscopy History of tooth extraction History of bilateral cataract extraction Status post left rotator cuff repair History of tonsillectomy History of shoulder surgery History of needle biopsy Family History Father Hypertension Other Heart disease Leukemia No family history of adverse response to anesthesia Social History Smoking Status: Never smoker Tobacco Type: Smokeless Tobacco (Dip or Chew) Second Hand Exposure: No; Do You Dip or Chew Tobacco: Yes; Hx Alcohol Use: No Hx Substance Use: No Preferred Language: Vietnamese Communication Ability: Effective Vice President Of Procurement Required: No Beliefs That Will Affect Care: None marital status: Current Living Situation: Spouse and Family Current Living Situation Comment: Lives with , daughter, 3 grandkids, son current occupational status: employed current occupation: CIVIL STRUCTURAL ENGINEER Feels Safe at Home: Yes Safety Concerns: Feels Safe At This Time Assistive Devices: Denture - Upper, Denture - Lower and Glasses Review of Systems Review of Systems: All systems reviewed & are unremarkable except as noted in HPI & below Physical Exam Constitutional: WD/WN, vitals as above (chronically ill) Eyes: PERRL, conjunctivae normal, anicteric sclerae ENMT: external ear and nose normal, oropharynx normal Respiratory: normal respiratory effort, lungs clear to auscultation Cardiovascular: RRR, no murmur, no edema Gastrointestinal (Abdomen): abd very slightly distended, nontender, soft, BS x 4 quadarants Skin: no rashes, warm and dry Psychiatric: A+Ox3, euthymic affect Results & Data Vital Signs (Past 12 Hours) Vital Signs Temp Pulse Resp BP Pulse Ox O2 Del Method 06/15/23 07:52 36.3 C L 83 18 148/91 H 95 Room Air 06/15/23 05:09 Room Air 06/15/23 05:08 37.3 C 84 16 148/84 H 96 Room Air 06/15/23 04:31 36.8 C 98 H 16 144/91 H 95 Room Air 06/15/23 02:59 82 18 156/92 H 99 Room Air Laboratory Results 06/15/23 06/15/23 06/14/23 Range/Units 08:30 07:24 18:16 WBC 7.53 10.41 (4.8-10.8) K/ul RBC 5.12 5.77 (4.70-6.10) M/uL Hgb 14.3 16.3 (14.0-18.0) g/dl Hct 43.5 48.5 (42.0-52.0) % MCV 85.0 84.1 (80.0-100.0) fL MCH 27.9 28.2 (25.0-34.0) pg MCHC 32.9 33.6 (32.0-36.0) g/dL RDW Std Deviation 40.0 39.2 (36.4-46.3) fL RDW Coeff of Farooq 13.0 12.8 (11.5-14.5) % Plt Count 239 302 (130-400) K/uL MPV 9.5 9.6 (9.4-12.4) fL Immature Gran % (Auto) 0.4 0.3 % Neut % (Auto) 82.8 84.8 % Lymph % (Auto) 7.8 8.5 % Lumpkin % (Auto) 7.8 5.8 % Eos % (Auto) 1.1 0.4 % Baso % (Auto) 0.1 0.2 % Neut # (Auto) 6.23 8.84 H (1.40-6.50) K/uL Lymph # (Auto) 0.59 L 0.88 L (1.20-3.40) K/uL Lumpkin # (Auto) 0.59 0.60 H (0.11-0.59) K/uL Eos # (Auto) 0.08 0.04 (0.00-0.50) K/uL Baso # (Auto) 0.01 0.02 (0.00-0.20) K/uL Immature Gran # (Auto) 0.03 0.03 (0.01-0.20) K/uL Sodium 137 139 (136-145) mmol/L Potassium 4.2 4.1 (3.5-5.1) mmol/L Chloride 104 101 (98-107) mmol/L Carbon Dioxide 25 28 (21-32) mmol/L Anion Gap 8 10 (3-11) BUN 23 19 (6-23) mg/dl Creatinine 0.97 1.14 (0.6-1.4) mg/dl Est Cr Clr Drug Dosing 101.1 86.0 ml/min Est GFR ( Amer) 94.6 77.8 ml/min Est GFR (Non-Af Amer) 81.6 67.1 ml/min BUN/Creatinine Ratio 23.7 H 16.7 (10-20) Glucose 111 H 100 H (70-99(Fasting)) mg/dl Calcium 8.0 L 9.5 (8.6-10.3) mg/dl Magnesium 1.7 (1.7-2.4) mg/dl Total Bilirubin 0.4 (0.2-1.0) mg/dl AST 17 (13-39) U/L ALT 22 (7-52) U/L Alkaline Phosphatase 73 (34-104) U/L Troponin I High Sens 5.2 (0-20) pg/ml Total Protein 7.5 (6.0-8.3) gm/dl Albumin 4.7 (3.4-5.0) gm/dl Globulin 2.8 (2.5-4.0) gm/dl Albumin/Globulin Ratio 1.7 (0.9-2) Lipase 19 285 H (11-82) U/L Urine Color Yellow Urine Appearance Clear (Clear) Urine pH 5.0 (4.5-7.5) Ur Specific Waterman 1.034 H (1.000-1.030) Urine Protein Trace H (Negative) Urine Glucose (UA) Negative (Negative) Urine Ketones Negative (Negative) Urine Blood Negative (Negative) Urine Nitrite Negative (Negative) Urine Bilirubin Negative (Negative) Urine Urobilinogen Negative (Negative) Ur Leukocyte Esterase Negative (Negative) Urine WBC (Auto) 1-5 (0-5) /hpf Urine RBC (Auto) 0-4 (0-4) /hpf U Hyaline Cast (Auto) 0 (0-5) /lpf U Epithel Cells (Auto) 5-10 H (0-5) /lpf Urine Bacteria (Auto) Negative (Negative) SARS-CoV-2 (PCR) (Negative) Influenza Type A (PCR) (Neg) Influenza Type B (PCR) (Neg) RSV (RT-PCR) (Neg) 06/14/23 Range/Units 18:10 WBC (4.8-10.8) K/ul RBC (4.70-6.10) M/uL Hgb (14.0-18.0) g/dl Hct (42.0-52.0) % MCV (80.0-100.0) fL MCH (25.0-34.0) pg MCHC (32.0-36.0) g/dL RDW Std Deviation (36.4-46.3) fL RDW Coeff of Farooq (11.5-14.5) % Plt Count (130-400) K/uL MPV (9.4-12.4) fL Immature Gran % (Auto) % Neut % (Auto) % Lymph % (Auto) % Lumpkin % (Auto) % Eos % (Auto) % Baso % (Auto) % Neut # (Auto) (1.40-6.50) K/uL Lymph # (Auto) (1.20-3.40) K/uL Lumpkin # (Auto) (0.11-0.59) K/uL Eos # (Auto) (0.00-0.50) K/uL Baso # (Auto) (0.00-0.20) K/uL Immature Gran # (Auto) (0.01-0.20) K/uL Sodium (136-145) mmol/L Potassium (3.5-5.1) mmol/L Chloride (98-107) mmol/L Carbon Dioxide (21-32) mmol/L Anion Gap (3-11) BUN (6-23) mg/dl Creatinine (0.6-1.4) mg/dl Est Cr Clr Drug Dosing ml/min Est GFR ( Amer) ml/min Est GFR (Non-Af Amer) ml/min BUN/Creatinine Ratio (10-20) Glucose (70-99(Fasting)) mg/dl Calcium (8.6-10.3) mg/dl Magnesium (1.7-2.4) mg/dl Total Bilirubin (0.2-1.0) mg/dl AST (13-39) U/L ALT (7-52) U/L Alkaline Phosphatase (34-104) U/L Troponin I High Sens (0-20) pg/ml Total Protein (6.0-8.3) gm/dl Albumin (3.4-5.0) gm/dl Globulin (2.5-4.0) gm/dl Albumin/Globulin Ratio (0.9-2) Lipase (11-82) U/L Urine Color Urine Appearance (Clear) Urine pH (4.5-7.5) Ur Specific Waterman (1.000-1.030) Urine Protein (Negative) Urine Glucose (UA) (Negative) Urine Ketones (Negative) Urine Blood (Negative) Urine Nitrite (Negative) Urine Bilirubin (Negative) Urine Urobilinogen (Negative) Ur Leukocyte Esterase (Negative) Urine WBC (Auto) (0-5) /hpf Urine RBC (Auto) (0-4) /hpf U Hyaline Cast (Auto) (0-5) /lpf U Epithel Cells (Auto) (0-5) /lpf Urine Bacteria (Auto) (Negative) SARS-CoV-2 (PCR) NEGATIVE (Negative) Influenza Type A (PCR) Negative (Neg) Influenza Type B (PCR) Negative (Neg) RSV (RT-PCR) Negative (Neg) Diagnostic Findings CTAP: INDINGS: Lung bases: Calcified granuloma at the RIGHT lung base. No consolidation. ABDOMEN: Liver: Hepatic steatosis. Gallbladder and bile ducts: Unremarkable. No calcified stones. No ductal dilation. Pancreas: Unremarkable. No mass. No ductal dilation. Spleen: Calcified splenic granulomas. Adrenals: Unremarkable. No mass. Kidneys and ureters: Unremarkable. No hydronephrosis or delayed nephrogram. Stomach and bowel: Mild liquid stool in the colon, correlate for diarrheal disease. Wall thickening of small bowel, concerning for mild enteritis. No obstruction. PELVIS: Appendix: No findings to suggest acute appendicitis. Bladder: Decompressed urinary bladder. Reproductive: Unremarkable as visualized. ABDOMEN and PELVIS: Intraperitoneal space: Unremarkable. No free air. No significant fluid collection. Bones/joints: No acute fracture. No dislocation. Soft tissues: Small fat-containing bilateral inguinal hernias. Vasculature: Unremarkable. No abdominal aortic aneurysm. Lymph nodes: Unremarkable. No enlarged lymph nodes. IMPRESSION: 1. Mild liquid stool in the colon, correlate for diarrheal disease. Wall thickening of small bowel, concerning for mild enteritis. 2. Hepatic steatosis. 3. Small fat-containing bilateral inguinal hernias
[2023-06-15 14:57] LABS: Adenovirus F 40/41 PCR Not Detected (NotDetected); Astrovirus PCR Not Detected (NotDetected); Campylobacter PCR Not Detected (NotDetected); Cryptosporidium PCR Not Detected (NotDetected); Cyclospora cayetanensis PCR Not Detected (NotDetected); Entamoeba histolytica PCR Not Detected (NotDetected); Enteroaggregative E.coli(EAEC) Not Detected (NotDetected); Enteropathogenic E.coli (EPEC) Not Detected (NotDetected); Enterotoxigenic E.coli (ETEC) Not Detected (NotDetected); Giardia lamblia PCR Not Detected (NotDetected); Norovirus GI/GII PCR Not Detected (NotDetected); Plesiomonas shigelloides PCR Not Detected (NotDetected); Rotavirus A PCR Not Detected (NotDetected); Salmonella PCR Not Detected (NotDetected); Sapovirus PCR Not Detected (NotDetected); Shiga-like Toxin E.coli (STEC) Not Detected (NotDetected); Shigella/Enteroinvasive E.coli Not Detected (NotDetected); Vibrio cholerae PCR Not Detected (NotDetected); Vibrio species PCR Not Detected (NotDetected); Yersinia enterocolitica PCR Not Detected (NotDetected)
[2023-06-16 07:01] LABS: Hematocrit (blood only) 38.3 % (42.0-52.0); Hemoglobin 12.7 g/dl (14.0-18.0); Mean Corpuscular Hemoglobin 28.3 pg (25.0-34.0); Mean Corpuscular Hgb Conc 33.2 g/dL (32.0-36.0); Mean Corpuscular Volume 85.5 fL (80.0-100.0); Mean Platelet Volume 9.5 fL (9.4-12.4); Platelet Count 208 K/uL (130-400); RDW Coefficient of Variation 12.9 % (11.5-14.5); Red Blood Count 4.48 M/uL (4.70-6.10); White Blood Count 6.69 K/ul (4.8-10.8)
[2023-06-16 07:28] LABS: Albumin Globulin Ratio 1.9 (0.9-2); Albumin Level 3.7 gm/dl (3.4-5.0); BUN Creatinine Ratio 15.6 (10-20); Bilirubin,Total 0.4 mg/dl (0.2-1.0); Est GFR (African American) 103.5 ml/min; Est GFR (Non-African American) 89.3 ml/min; Magnesium 1.7 mg/dl (1.7-2.4); Phosphorus 2.6 mg/dl (2.5-4.9); Potassium 3.8 mmol/L (3.5-5.1); Total Protein 5.7 gm/dl (6.0-8.3)
[2023-06-16] MEDS: FLUTICASONE PROPIONATE NA SPR 16 GM BTL PRN (10:42)
[2023-06-16] MEDS: MAGNESIUM SULFATE / D5W 1 GM/100 ML BAG IV ONE (13:02)
--- NOTE | 2023-06-16 14:22 | Discharge Summary ---
Date of Service June 16, 2023 Admission HPI Per Admitting Provider 67-year-old male with past medical history significant for hyperlipidemia, prediabetes, hypertension, statin intolerance, depression comes because of abdominal pain ,nausea vomiting and diarrhea. Patient states this Morning when he woke up he had a lot of cough after that he started to have severe pain left lower rib cage. Also had nausea and couple of episodes of vomiting and couple of episodes of diarrhea. In the ER after pain medications and nausea medication symptoms improved. He still has some tenderness in left lower rib cage. Denies any fevers. No other chest pain. No headache. No some runny nose. No sore throat. Has some cough. Micturating okay. Ambulates okay. Currently resting comfortably and hemodynamically stable. Past miscarriage as mentioned above Past surgical history. Tonsillectomy. Cataracts Social history. . Snuff tobacco. She is currently not drinking alcohol. Last drink was Neeraj time as per patient. No drug use. Family history. Father had CABG. Mother had hypertension. Maternal grandmother had diabetes. Maternal grandfather had heart disorder. Admission Exam Per Admitting Provider General- Not in distress Head- atraumatic Eyes- PERRL. ENT- oropharynx clear Neck- supple, no JVD. Lungs- clear to auscultation no wheezing or crackles Heart- regular rhythm; no murmur, no gallop Abdomen- normal bowel sounds, soft, left lower ribs mild tenderness no distension Extremities- no pretibial edema, no erythema seen. Neuro- alert, oriented x 3; PERRL, no facial palsy; no dysarthria; moves extremities. Skin- warm & dry Principal Diagnosis Viral enteritis Discharge Exam General- obese M in NAD Head- atraumatic Eyes- PERRL. ENT- oropharynx clear Neck- supple, no JVD. Lungs- clear to auscultation no wheezing or crackles Heart- regular rhythm; no murmur, no gallop Abdomen- normal bowel sounds, soft, obese abdomen, left lower ribs mild tenderness to palp. Extremities- no pretibial edema, no erythema seen. Neuro- alert, oriented x 3; PERRL, no facial palsy; no dysarthria; moves extremities. Skin- warm & dry Discharge Data Allergies Allergy/AdvReac Type Severity Reaction Status Date / Time bee venom protein (honey bee) Allergy Intermediate ITCHING Verified 06/14/23 21:15 AND BODY SWELLING Consultations 06/14/23 22:57 ED Decision to Admit Stat 06/15/23 08:00 Consult Gastroenterology Routine Ordered Studies 06/14/23 18:09 CT abd pelvis IV con only Stat FINDINGS: Lung bases: Calcified granuloma at the RIGHT lung base. No consolidation. ABDOMEN: Liver: Hepatic steatosis. Gallbladder and bile ducts: Unremarkable. No calcified stones. No ductal dilation. Pancreas: Unremarkable. No mass. No ductal dilation. Spleen: Calcified splenic granulomas. Adrenals: Unremarkable. No mass. Kidneys and ureters: Unremarkable. No hydronephrosis or delayed nephrogram. Stomach and bowel: Mild liquid stool in the colon, correlate for diarrheal disease. Wall thickening of small bowel, concerning for mild enteritis. No obstruction. PELVIS: Appendix: No findings to suggest acute appendicitis. Bladder: Decompressed urinary bladder. Reproductive: Unremarkable as visualized. ABDOMEN and PELVIS: Intraperitoneal space: Unremarkable. No free air. No significant fluid collection. Bones/joints: No acute fracture. No dislocation. Soft tissues: Small fat-containing bilateral inguinal hernias. Vasculature: Unremarkable. No abdominal aortic aneurysm. Lymph nodes: Unremarkable. No enlarged lymph nodes. IMPRESSION: 1. Mild liquid stool in the colon, correlate for diarrheal disease. Wall thickening of small bowel, concerning for mild enteritis. 2. Hepatic steatosis. 3. Small fat-containing bilateral inguinal hernias. Hospital Course (1) Abdominal pain: 67-year-old male with past medical history significant for hyperlipidemia, prediabetes, hypertension, statin intolerance, depression comes because of abdominal pain ,nausea vomiting and diarrhea. Patient states this Morning when he woke up he had a lot of cough after that he started to have severe pain left lower rib cage. Also had nausea and couple of episodes of vomiting and couple of episodes of diarrhea. In the ER after pain medications and nausea medication symptoms improved. He still has some tenderness in left lower rib cage. Denies any fevers. No other chest pain. No headache. No some runny nose. No sore throat. Has some cough. Micturating okay. Ambulates okay. Currently resting comfortably and hemodynamically stable. Abdominal pain Nausea vomiting and diarrhea CT scan showing mild enteritis Lipase 285 Possible mild gastroenteritis (likely viral), versus mild pancreatitis Lipase elevation could be nonspecific IV fluids, IV antiemetics. IV Dilaudid as needed GI consulted Pt feels improved, abd. pain much improved and he is tolerating PO intake. Prediabetes Will for HbA1c levels Hypertension Continue amlodipine, lisinopril Will hold hydrochlorothiazide for now - recommend to hold for 2 more days after discharge IV hydralazine as needed while inpt. Hyperlipidemia On statin Depression Prozac Total Time Total Time Spent Total Time Spent (In Minutes): 40 Discharge Plan Discharge Items Patient Disposition: Home - Self-Care Reason For Visit: ABDOMINAL PAIN Discharge Diagnosis: Viral enteritis Activity: Per Instructions section Non-emergency contact: Primary Care Provider Call non-emergency contact if: you have any medication questions and your symptoms worsen Follow-up/Referrals: Henrique Sommer MD [Primary Care Provider] - (Date & Time 06/23/2023 11:00 AM Provider Henrique Sommer MD [facility] ) Diet: Regular Addtl Attending Provider Instructions: Follow up with your primary care physician within 1 week. The appointment was scheduled for you for 06/23/2023. Do not take hydrochlorothiazide for next 2 days and make sure you stay well hydrated. For pain, take tylenol 1,000 mg three times a day. For more severe pain, you can take oxycodone as needed as prescribed. You should also follow up with gastroenterology and schedule a screening colonoscopy. Pending Studies at Discharge: No Stand-Alone Forms: My [facility], Smoking Cessation Medications and DC Order Prescriptions: New oxycodone 5 mg tablet 5 mg PO DAILY PRN (Reason: pain) Qty: 3 0RF Continued amlodipine 10 mg tablet 5 mg PO QAM albuterol sulfate [Ventolin HFA] 90 mcg/actuation HFA aerosol inhaler 2 inh inhalation Q4H PRN (Reason: shortness of breath or wheezing) Qty: 6.7 1RF Rx Instructions: 2 puffs every 4-6 hrs as needed for wheezing diclofenac sodium 75 mg Tablet,Delayed Release (Dr/Ec) 75 mg PO QAM lisinopril 40 mg Tablet 40 mg PO QAM fluoxetine [Prozac] 20 mg capsule 20 mg PO QAM fluticasone propionate [Flonase] 50 mcg/actuation Hazel,Suspension 2 spray INTRANASAL DAILY PRN (Reason: Congestion) Rx Instructions: administer into each nostril rosuvastatin 5 mg tablet 5 mg PO DAILY Held hydrochlorothiazide 25 mg tablet 25 mg PO QAM Hold Instructions: Resume on 06/18/23. Discharge Orders: Discharge Order (Routine); Ordered 06/16/23 Ordered By: Tano Pickering Admission Data Admit Date/Time: 06/15/23 03:56 Attending Provider: Tano Pickering Admit Provider: Stephen Amanda Primary Care Provider: Henrique Sommer Other Providers: Stephen Amanda; Brenton Covarrubias; Mikey Reeves; Radha Noble; Ijeoma Fernandes; Nova Bernal; Tegan Garcia; Brain Castro; Benjamin Feliciano; Kahlil Miranda; Koffi Naidu; Hermelinda Daly S; Ruma Jiménez; Odessa Moses; Rosina Mendoza; Kanchan Toro; Lamont Castillo; Regan Garcia; Armen Mejia; Chichi Ortega; Richard Ivan Jr
[2023-06-16] MEDS ORDERED: ROSUVASTATIN CALCIUM 5 MG TAB PO SCH (21:00)
== END 2023-06-16 17:20 | disposition home or self-care (01) ==
LOC: 3E 17:40 → ED 17:40 → 3E 06-15 04:50